=== PATIENT | male | born 1990 | race African-American/Black ===

== ENCOUNTER 2016-02-26 11:28 | Inpatient (IN) | payer OTHER ==
[~2016-02-26] VITALS: Ht 172.7 cm; Wt 82.7 kg
[~2016-02-26 11:28] MED LIST: CELE10TA; CELE20TA; CELE40TA OR; DEPA250T2 OR; DEPA500T2 PO; GEOD60CA OR; GEOD60CA PO; GLUC500T PO; INVE6TAB3; NAPR500T2 PO; NEUR300C; No home meds; OXCA30TA OR; PROZ20CA11 PO; RISP25INJ IM; RISP3TAB18 PO; RISPERDAL CONSTA; TRAZ100T OR; ZYPR10TA; ZYPR10TA OR; ZYPR20TA; ZYPR20TA OR; ZYPR20TA3; ZYPR5TAB; [UNRECOGNIZED DRUG - CODE] PO
[2016-02-26 13:37] LABS: MEAN CORPUSCULAR HEMOGLOBIN 32.4 pg (27.0-33.0); MEAN CORPUSCULAR HGB CONC 35.3 g/dl (32.0-36.5); MEAN CORPUSCULAR VOLUME 91.8 fl (80.0-96.0); RED CELL DISTRIBUTION WIDTH 12.1 % (11.5-14.5); WHITE BLOOD COUNT 6.3 K/mm3 (4.0-10.0)
[2016-02-26 13:55] LABS: AMPHETAMINES LEVEL URINE NEGATIVE (NEGATIVE); BENZODIAZEPINES URINE NEGATIVE (NEGATIVE); COCAINE METABOLITE URINE NEGATIVE (NEGATIVE); CONTROL LINE INT CTR LINE PRESENT; METHADONE URINE NEGATIVE (NEGATIVE); OPIATES URINE NEGATIVE (NEGATIVE); TRICYCLIC ANTIDEPRESS URINE NEGATIVE (NEGATIVE)
[2016-02-26 14:04] LABS: ALBUMIN 3.4 GM/DL (3.2-5.2); ALBUMIN/GLOBULIN RATIO 0.89 (1.00-1.93); ALKALINE PHOSPHATASE 73 U/L (45-117); ALT/SGPT 35 U/L (12-78); ANION GAP 8 MEQ/L (8-16); AST/SGOT 16 U/L (15-37); BILIRUBIN,DIRECT < 0.1 MG/DL (0.0-0.2); BILIRUBIN,TOTAL 0.2 MG/DL (0.2-1.0); BLOOD UREA NITROGEN 7 MG/DL (7-18); CALCIUM LEVEL 8.8 MG/DL (8.5-10.1); CARBON DIOXIDE LEVEL 27 MEQ/L (21-32); CHLORIDE LEVEL 106 MEQ/L (98-107); CREATININE FOR GFR 0.76 MG/DL (0.70-1.30); GLOMERULAR FILTRATION RATE > 60.0 (>60); GLUCOSE, FASTING 92 MG/DL (70-105); POTASSIUM SERUM 4.1 MEQ/L (3.5-5.1); SODIUM LEVEL 141 MEQ/L (136-145); TOTAL PROTEIN 7.2 GM/DL (6.4-8.2)
[2016-02-26] MEDS ORDERED: RISP2TAB30 PO (14:14)
[2016-02-26] MEDS ORDERED: DEPA1TAB3 PO (14:14)
--- NOTE | 2016-02-26 20:41 | EDDOCDS ---
Physician Documentation [facility] Name: Ivan Hirsch Age: 25 yrs Sex: Male : 1990 Arrival Date: 02/26/2016 Time: 11:28 Bed U4 Private MD: Disposition: 02/25 14:24 Critical Care: Critical care not applicable. Disposition: 02/26/16 14:25 Hospitalization ordered by Terry De La Rosa for Inpatient Admission. Preliminary diagnosis is Schizophrenia. - Bed requested for Admit. - Status is Inpatient Admission. cf2 - Condition is Stable. - Problem is an acute exacerbation. - Symptoms are unchanged. HPI: 12:54 This 25 yrs old Male presents to ER via Police Car with complaints of pc Psych Problem. 12:54 The history is obtained from the patient, the patient's parent. The patient presents to the emergency department with hallucinating. At their worst, the symptoms were moderate. In the emergency department, the symptoms are unchanged. He has been missing his Psych appointment and monthly Invega injections and has become psychotic. His mother called for a pickle pumper order today. He is cooperative and polite but is responding to internal stimuli. The patient has experienced similar episodes in the past, chronically. Historical: - Allergies: no known allergies; - Home Meds: 1. has not taken any meds x 1 month 2. Invega Sustenna intramuscular intramuscular once moly (Last dose: 12/31/2015) 3. Prozac 20 mg Oral cap 1 cap once daily (Last dose: Unknown) 4. Risperdal 2 mg Oral tab 1 tab 2 times per day (Last dose: Unknown) 5. Depakote 500 mg Oral TbEC 2 tabs nightly (Last dose: Unknown) - PMHx: Schizophrenia; - PSHx: Cholecystectomy; - The history from nurses notes was reviewed: and I agree with what is documented. - Social history: Smoking status: Patient uses tobacco products, heavy tobacco smoker. No barriers to communication noted, The patient speaks fluent Kiswahili, Speaks appropriately for age. - Family history: Not pertinent. - : The pt / caregiver states he / she is not on anticoagulants. Home medication list is obtained from the patient. - Hospitalizations: : No recent hospitalization is reported. - Exposure Risk Screening:: None identified. - Immunization history:: All immunizations up-to-date. - Social history:: the patient smokes cigarettes the patient drinks alcohol, the patient does not use illicit drugs. ROS: 12:54 All systems are negative except as listed. The psychiatric and neurological components pc are also addressed in the HPI. Exam: 12:54 General Appearance: alert, no acute distress. pc 12:54 ENT: ear, nose and throat normal, pharynx normal. 12:54 Eyes: pupils equal, round and reactive to light, extraocular motions intact. 12:54 Neck: The exam reveals no acute abnormalities. ROM is normal and painless. No nuchal rigidity is noted.. 12:54 Respiratory: breathing is even and unlabored, breath sounds are normal. 12:54 Cardiovascular: regular pulse rate, regular heart rhythm, normal heart sounds, equal and full pulses bilaterally. 12:54 Abdomen: soft, non-tender, no organomegaly, normal bowel sounds. 12:54 Skin: skin color is normal, warm, dry. 12:54 Extremities: The extremities have a grossly normal appearance, are non-tender, without acute ROM abnormalities. 12:54 Neuro: alert, oriented to person, place and time, cranial nerves normal as tested, no motor deficits, no sensory deficits. 12:54 Psych: mood is normal, affect is paranoid, withdrawn. Vital Signs: 12:02 BP 141 / 82; Pulse 82; Resp 16; Temp 96.8(O); Pulse Ox 98% on R/A; Weight 84.37 kg / bcj 186 lbs; Height 5 ft. 8 in. (172.72 cm); Pain 0/10; 20:25 BP 134 / 82; Pulse 68; Resp 18; Temp 97.3; Pulse Ox 98% ; Pain 0/10; mas 12:02 Body Mass Index 28.28 (84.37 kg, 172.72 cm) bcj MDM: 12:27 Consult PFS/PSA/Medical Record Coder: Patient's case requires discussion with on-call pc Psychiatrist ordered. 12:27 PSA/PFS to call Nursing Furnace Packer, to enter patient data on [place] Safe Act if patient pc involuntarily admitted or transferred for SI or HI ordered. 12:27 Confirm accurate psychiatric medication list and times of last dosage ordered. pc 12:27 Detain Pt Until Medically/PFS Cleared ordered. pc 12:28 Acetaminophen Level Ordered. EDMS 12:28 Basic Metabolic Profile Ordered. EDMS 12:28 Complete Blood Count Ordered. EDMS 12:28 Drug Eval Toxicology ED Only Ordered. EDMS 12:28 Ethyl Alcohol (ethanol) Ordered. EDMS 12:28 Liver Profile Ordered. EDMS 12:28 Salicylate Level Ordered. EDMS 12:28 Thyroid Stimulating Hormone Ordered. EDMS 12:54 Differential diagnosis: acute psychosis. Plan: labs, PFS eval. pc 13:20 REGULAR DIET PLASTIC RUIZ+DIET ordered. EDMS 13:45 BED REQUEST+ADM ordered. EDMS 14:08 Acetaminophen Level Reviewed. pc 14:08 Complete Blood Count Reviewed. pc 14:08 Liver Profile Reviewed. pc 14:08 Salicylate Level Reviewed. pc 14:08 Basic Metabolic Profile Reviewed. pc 14:08 Drug Eval Toxicology ED Only Reviewed. pc 14:08 Ethyl Alcohol (ethanol) Reviewed. pc 14:08 Thyroid Stimulating Hormone Reviewed. pc 14:24 The patient has been medically cleared for psychiatric evaluation, admission and/or pc transfer. [place] Safe Act reporting: Reporting to the [place] Safe [place] was not completed because the patient did not display any suicidal or homicidal ideation and was not considered a risk to self or others. Data reviewed: old medical records, vital signs, nurses notes, lab test results. Test interpretation: LAB - all labs as ordered have been reviewed, interpreted and considered in the overall management of the clinical presentation;. The patient has been re-examined and re-evaluated. There is no appreciated change of the patient's symptoms at this time. Disposition: The historical points, examination findings, and any diagnostic results supporting the provided diagnosis, were discussed with the patient or legal guardian. The need for outpatient follow up with the provider listed on their discharge instructions was discussed. They were encouraged to return to [facility], or the nearest ED, if symptoms worsen/persist, or for any other questions/concerns. 15:16 Financial registration complete. [id number] 15:24 [facility] Payment Agreement was scanned into [employer] and attached to record. mm15 16:13 REGULAR DIET PLASTIC RUIZ+DIET ordered. EDMS 16:33 Admit to [facility]: ordered. EDMS 18:38 Consult PFS/PSA/Medical Record Coder: Patient's case requires discussion with on-call ms Psychiatrist complete. 18:38 PSA/PFS to call Nursing Furnace Packer, to enter patient data on [facility] Safe Act if patient ms involuntarily admitted or transferred for SI or HI complete. Signatures: Dispatcher [employer] Edenilson Camejo MD MD pc Johnson, Bruce, RN RN bcabe Townsend, Sarah, PSA PSA Asiya Hilton,RN RN Pancho Neumann mm15 Catrachita Matthews RN RN cf2 The chart was reviewed and I authenticate all verbal orders and agree with the evaluation and treatment provided.Attachments: 15:24 [facility] Payment Agreement [id number] MTDD
--- NOTE | 2016-02-26 20:41 | EDDOCDS ---
Nurse's Notes [facility] Name: Ivan Hirsch Age: 25 yrs Sex: Male : 1990 Arrival Date: 02/26/2016 Time: 11:[address] MD: Diagnosis: Schizophrenia Presentation: 02/25 11:52 Presenting complaint: Patient states: states here for medication adjustment. per PFS - bcj has been non compliant with meds - told provider today that something inside him was eating his meds. admits to auditory hallucinations - random voices. has not been taking meds at home. pt denies SI HI admits to not sleeping. not eating well. Mental Health Triage Level: Level 2: The patient was brought to the ED for evaluation because of a legal pickup order. Adult Sepsis Screening: The patient does not have new or worsening altered mentation. Patient's respiratory rate is less than 22. Systolic blood pressure is greater than 100. Patient has a qSOFA score of 0- Negative Sepsis Screen. Suicide/Homicide risk assessment- The patient admits to and/or has been reported to be having suicidal ideations. Patient denies SI and HI but presents with another emotional, behavioral or other mental health complaint. The patient reports that he/she has not been admitted to an inpatient mental health facility in the last 30 days. The patient reports that he/she has a recent or current history of substance abuse. The patient reports that he/she has no prior history of suicide attempt and/or organized plan. The patient reports that he/she has not experienced a significant life altering event in the last 30 days. The patient reports that he/she has adequate social support. The patient reports he/she has no significant chronic medical condition(s). Status: Patient is not a travel services professional or dependent. Transition of care: patient was not received from another setting of care. 11:52 Acuity: PHILIP Level 3 [facility] 11:52 Method Of Arrival: Police Car [facility] Triage Assessment: 12:02 General: Appears in no apparent distress, comfortable, Behavior is cooperative. Pain: bcj Denies pain. HIV screening NA for this visit Offered previously. Neurological: Level of Consciousness is awake, alert, Oriented to person, place, time. Derm: Skin is pink, warm & dry. Historical: - Allergies: no known allergies; - Home Meds: 1. has not taken any meds x 1 month 2. Invega Sustenna intramuscular intramuscular once moly (Last dose: 12/31/2015) 3. Prozac 20 mg Oral cap 1 cap once daily (Last dose: Unknown) 4. Risperdal 2 mg Oral tab 1 tab 2 times per day (Last dose: Unknown) 5. Depakote 500 mg Oral TbEC 2 tabs nightly (Last dose: Unknown) - PMHx: Schizophrenia; - PSHx: Cholecystectomy; - The history from nurses notes was reviewed: and I agree with what is documented. - Social history: Smoking status: Patient uses tobacco products, heavy tobacco smoker. No barriers to communication noted, The patient speaks fluent Bhutanese, Speaks appropriately for age. - Family history: Not pertinent. - : The pt / caregiver states he / she is not on anticoagulants. Home medication list is obtained from the patient. - Hospitalizations: : No recent hospitalization is reported. - Exposure Risk Screening:: None identified. - Immunization history:: All immunizations up-to-date. - Social history:: the patient smokes cigarettes the patient drinks alcohol, the patient does not use illicit drugs. Screenin:03 Screening information is obtained from the patient. Fall risk: No risks identified. bcj Assistance ADL's: requires no assistance with activities of daily living. Abuse/DV Screen: The patient / caregiver reports he/she is: not in a situation that causes fear, pain or injury. Nutritional screening: No deficits noted. Advance Directives: Currently, there is no health care proxy. home support is adequate. Assessment: 12:03 Adult Sepsis Screening:. General: Appears in no apparent distress, comfortable. Pain: bcj Denies pain. 13:00 General: Appears in no apparent distress, comfortable, Behavior is appropriate for age, jo3 cooperative. Pain: Denies pain. Neurological: Level of Consciousness is awake, alert. Respiratory: Airway is patent Respiratory effort is even, unlabored. Derm: Skin is intact, Skin is dry, Skin is normal. 14:00 Reassessment: Patient appears in no apparent distress at this time. No significant jo3 changes noted. Security observing . 15:40 Reassessment: Patient appears in no apparent distress at this time. Mother at bedside. jo3 Awaiting admission at this time. Aware of plan of care. Security observing . 17:22 General: Appears in no apparent distress, comfortable, Behavior is cooperative, quiet. jo3 General: Resting quietly on stretcher at this time. Mother left pt room at this time. Mother reports to this quality analyst/technical writer that pt has not been taking home medications consistently for 1-2 months. Pt has not had Invega injection since 12/30. other also states that pt has been abusing "Zita" and cocaine and ETOH. . Neurological: No deficits noted. Level of Consciousness is awake, alert. Respiratory: Airway is patent Respiratory effort is even, unlabored. Derm: Skin is intact, Skin is dry, Skin is normal. 19:33 General: Patient received from previous shift. Calm and cooperative. No s/s distress. cf2 Sitter at bedside. Will continue to monitor . 20:30 Adult Sepsis Screening: The patient does not have new or worsening altered mentation. cf2 Patient's respiratory rate is less than 22. Systolic blood pressure is greater than 100. Patient has a qSOFA score of 0- Negative Sepsis Screen. 20:31 General: Patient resting comfortably. No s/s distress. Remains calm and cooperative. cf2 Patient being prepared for transport to floor.. Mental Health Eval: 12:35 Status: The patient is not a travel services professional or dependent. [facility] Health: The patient is not an established patient of [facility]. Referral Information: Evaluation referral is generated by a police agency: [employer] on . The patient was referred for evaluation because Pt reportedly decompensating. A .45 was requested by pt's mother after concerns were expressed by pt's therapist because pt had failed to present several times for monthly injection of Invega. Mother says pt has been experiencing AH and delusions which are increasing. 14:42 Mental health consult is initiated at 14:45. Subjective: The patients chief complaint ml4 is pt states, "I'm here because I need a medication increase." Pt reports missing his last Invega injection, but feels the medication was not effective. He admits not wanting to be prescribed Invega any longer, but admits wanting his other medication dosage increased. Pt reports wanting to return home, denies SI and HI. He appears to present well during evaluation, however as interview progresses, the more paranoid he becomes. He is delayed answering questions, positive thought blocking, and appears to be internally pre-occupied. Spoke to mother separately who reports pt is decompensating due to non-compliance. Last dose of Invega injection was Dec, 2015. Mother reports pt stated this am, "something inside of me is eating the medication." Additionally, she reports pt's new acquaintance has been taking advantage of him and supplying him with dugs(Zita and Cocaine), which may be causing symptoms. Mother reports pt is responding to internal stimuli and states, "he has non-verbal conversations with someone who is not there." . Delusions are paranoid, Patient's mood is anxious, Auditory Hallucinations are suspected by Mother . Visual Hallucinations are suspected by Mother . Mental Health history: abusing cocaine. crack cocaine. methamphetamine. schizophrenia, Mental Health Admissions: [facility] 08/17/13 Current Outpatient Mental Health Services: [facility] . Current living environment is Family / Home Support: adequate family support, however pt resides alone. Patient presents to Emergency Department with the following symptoms within the past 2 weeks: anxiety, decreased appetite, auditory hallucinations Mother visual hallucinations, Mother non-compliance, paranoia, poor concentration, poor impulse control, psychosis, relational problem, sleep disturbance - insomnia. Substance abuse: Pt denies. Mental status exam: Patients appearance is appropriate, Patient's behavior is bizarre, Speech is mumbled. Affect is restricted. Mood is anxious. Hallucinations are Denied, however heavily suspected . Appetite is poor. Memory is fair. Energy level is normal. Content of thought is paranoid Thought process is intact. Cognitive level is oriented to person, place, time and situation Patient's insight is poor. Judgement is poor. Rapport with interviewer is guarded. Suicidal Ideation is denied. Homicidal ideation is denied. Disposition: Medically cleared for disposition by Edenilson Sepulveda MD. Narrative: Awaiting psychiatric consult... 16:49 Disposition: Psychiatric Consult is performed by phone with Dr Terry De La Rosa. [facility] ml4 Admission Criteria: The patient displays symptoms of severe psychiatric disorder resulting in disordered behavior and significant interference with his / her ability to maintain self care. The patient requires continuous observation and/or control to protect self, others or property. The patient's care requires a multi-modal treatment plan under close supervision and coordination due to the complexity and severity of the patient's symptoms. The patient requires administration and monitoring of psychoactive medications by skilled medical providers due to the side effects of the psychoactive medications or significant dosage adjustments. Legal Status: Patient's legal status will be Emergency admission: 39. [place] because the patient does not display any suicidal or homicidal ideations and does not pose a risk to self or others. DSM-V Differential Diagnosis: Schizophrenia (F20.9). Narrative: Notice of Status and Rights, FAQ, and Bill of Rights was given at bedside. Awaiting: transfer to [facility]. 16:53 Narrative: Mother is requesting drug and alcohol rehab for pt upon discharge due to pt ml4 abusing Zita and Marijuana. 18:40 Insurance Pre-Certification: approved by: Quintin Clarke \\Christopher\\ [facility] Community Plan. Pt is approved ml4 for 5 days(02/25-03/01) with review due on 03/02/16. Auth #[id number]. Psych: 12:05 Mental Health Triage Level: Level 2: The patient displays active suicidal ideations. [facility] 12:05 Subjective: The patients chief complaint is needs medication change. Delusions are denied. Patient's mood is appropriate. Auditory Hallucinations are reported by the patient. 12:05 Objective: Patient is cooperative, Speech is normal. Affect is appropriate. 12:05 Substance abuse: Pt denies Vital Signs: 12:02 BP 141 / 82; Pulse 82; Resp 16; Temp 96.8(O); Pulse Ox 98% on R/A; Weight 84.37 kg; [facility] Height 5 ft. 8 in. (172.72 cm); Pain 0/10; 20:25 BP 134 / 82; Pulse 68; Resp 18; Temp 97.3; Pulse Ox 98% ; Pain 0/10; mas 12:02 Body Mass Index 28.28 (84.37 kg, 172.72 cm) [facility] Vitals: 12:02 Log In time N/A- police car arrival. [facility] ED Course: 11:29 Patient visited by Jan León Reg. lg 11:29 Patient moved to [facility] lg 11:42 [address] 11[address]59 Triage Initiated [facility] 12:00 Pt greeted and oriented to ED. Patient advised of names of staff involved in care, pjf location of call smith, wait times and NPO status. Accompanied by Law Enforcement, wplexy (9.45), Side rails up X 1. Security observing. Property removed, secured in belongings bag- Placed in locker #4. Door closed. Noise minimized. Visitors limited. Report received from [facility] - psych. triage level #2, ams, requesting medication adjustment, cooperative \\T\\ this time. Psych Safety Check: Location: Psych Room. 12:03 The patient / caregiver is instructed regarding the plan of care and ED course. Patient bcj has correct armband on for positive identification. Placed in gown. Placed in psych safe attire. Bed in low position. Call light in reach. 12:03 No IV's were initiated during this patient's visit. No procedures done that require bcj assistance. 12:04 Patient visited by Juan José Estrada Security Aide. pjf 12:04 Edenilson Sepulveda MD is Attending Physician. pc 12:06 Patient visited by Fox Lopez RN. bcj 12:15 Psych Safety Check: Location: Psych Room. Visual Assessment: Cooperative. pjf 12:44 Patient visited by Juan José Estrada Security Aide. pjf 12:45 Psych Safety Check: Location: Psych Room. Visual Assessment: Cooperative. pjf 12:54 Patient visited by Edenilson Sepulveda MD. pc 13:11 Patient visited by Juan José Estrada Security Aide. pjf 13:12 Acetaminophen Level Sent. nb2 13:12 Basic Metabolic Profile Sent. nb2 13:12 Complete Blood Count Sent. nb2 13:12 Drug Eval Toxicology ED Only Sent. nb2 13:12 Ethyl Alcohol (ethanol) Sent. nb2 13:12 Liver Profile Sent. nb2 13:12 Salicylate Level Sent. nb2 13:12 Thyroid Stimulating Hormone Sent. nb2 13:34 Patient visited by Juan José Estrada Security Aide. pjf 13:35 Property secured in secure belongings bag, Secure bag Number [id number], placed in ED safe.pjf 13:45 Psych Safety Check: Location: Psych Room. Visual Assessment: Cooperative. pjf 14:01 Patient visited by Juan José Estrada Security Aide. pjf 14:14 Patient visited by Juan José Estrada Security Aide. pjf 14:25 Terry De La Rosa is Hospitalizing Provider. pc 15:15 Patient visited by Cm Lama PCA. mdr 15:24 [facility] Payment Agreement was scanned into [employer] and attached to record. mm15 15:44 Patient visited by Juan José Estrada Security Aidalma rosa. pjf 16:06 Patient visited by Asiya Del Rosario RN. jo3 16:17 Patient visited by Juan José Estrada Security Aide. pjf 16:31 Patient visited by Juan José Estrada Security Aide. pjf 16:44 Patient visited by Juan José Estrada Security Aidalma rosa. pjf 16:45 Psych Safety Check: Location: Psych Room. Visual Assessment: Cooperative. pjf 17:00 Psych Safety Check: Location: Psych Room. Visual Assessment: Cooperative. pjf 17:15 Psych Safety Check: Location: Psych Room. Visual Assessment: Cooperative. pjf 17:27 Patient visited by Asiya Del Rosario RN. jo3 17:30 Psych Safety Check: Location: Psych Room. Visual Assessment: Cooperative. pjf 17:48 Patient visited by Juan José Estrada Security Aide. pjf 18:17 Patient visited by Juan José Estrada Security Aidalma rosa. pjf 18:43 Patient visited by Juan José Estrada Security Aidalma rosa. pjf 19:11 Patient visited by Asiya Del Rosario RN. jo3 19:20 Catrachita Matthews,ADAL is Primary Nurse. cf2 19:20 Patient visited by Catrachita Matthews RN. cf2 19:20 Patient visited by Catrachita Matthews,ADAL. cf2 19:30 Patient visited by Laz Scott. mas 19:45 Patient visited by Laz Scott. mas 20:00 Patient visited by Laz Scott. mas 20:12 Patient visited by Catrachita Matthews RN. cf2 20:16 Patient visited by Laz Scott. mas 20:30 Patient visited by Laz Scott. mas 20:30 Patient visited by Catrachita Matthews RN. cf2 Order Results: Lab Order: Acetaminophen Level; SPEC'M 02/26/16 13:10 Test: ACETAMINOPHEN LEVEL; Value: < 2.0; Range: 10.0-30.0; Abnormal: Below low normal; Units: UG/ML; Status: F Lab Order: Basic Metabolic Profile; SPEC'M 02/26/16 13:10 Test: GLUCOSE, FASTING; Value: 92; Range: 70-105; Units: MG/DL; Status: F Test: BLOOD UREA NITROGEN; Value: 7; Range: 7-18; Units: MG/DL; Status: F Test: CREATININE FOR GFR; Value: 0.76; Range: 0.70-1.30; Units: MG/DL; Status: F Test: GLOMERULAR FILTRATION RATE; Value: > 60.0; Range: >60; Status: F Test: SODIUM LEVEL; Value: 141; Range: 136-145; Units: MEQ/L; Status: F Test: POTASSIUM SERUM; Value: 4.1; Range: 3.5-5.1; Units: MEQ/L; Status: F Test: CHLORIDE LEVEL; Value: 106; Range: 98-107; Units: MEQ/L; Status: F Test: CARBON DIOXIDE LEVEL; Value: 27; Range: 21-32; Units: MEQ/L; Status: F Test: ANION GAP; Value: 8; Range: 8-16; Units: MEQ/L; Status: F Test: CALCIUM LEVEL; Value: 8.8; Range: 8.5-10.1; Units: MG/DL; Status: F Test Note: ; Units are mL/min/1.73 m2 Chronic Kidney Disease Staging per NKF: Stage I & II GFR >=60 Normal to Mildly Decreased Stage III GFR 30-59 Moderately Decreased Stage IV GFR 15-29 Severely Decreased Stage V GFR <15 Very Little GFR Left ESRD GFR <15 on RECORDINGS LIBRARIAN Lab Order: Complete Blood Count; [facility] 02/26/16 13:10 Test: WHITE BLOOD COUNT; Value: 6.3; Range: 4.0-10.0; Units: K/mm3; Status: F Test: RED BLOOD COUNT; Value: 4.53; Range: 4.30-6.10; Units: M/mm3; Status: F Test: HEMOGLOBIN; Value: 14.7; Range: 14.0-18.0; Units: g/dl; Status: F Test: HEMATOCRIT; Value: 41.6; Range: 42.0-52.0; Abnormal: Below low normal; Units: %; Status: F Test: MEAN CORPUSCULAR VOLUME; Value: 91.8; Range: 80.0-96.0; Units: fl; Status: F Test: MEAN CORPUSCULAR HEMOGLOBIN; Value: 32.4; Range: 27.0-33.0; Units: pg; Status: F Test: MEAN CORPUSCULAR HGB CONC; Value: 35.3; Range: 32.0-36.5; Units: g/dl; Status: F Test: RED CELL DISTRIBUTION WIDTH; Value: 12.1; Range: 11.5-14.5; Units: %; Status: F Test: PLATELET COUNT, AUTOMATED; Value: 298; Range: 150-450; Units: k/mm3; Status: F Lab Order: Drug Eval Toxicology ED Only; SPEC'M 02/26/16 13:10 Test: AMPHETAMINES LEVEL URINE; Value: NEGATIVE; Range: NEGATIVE; Status: F Test: BARBITURATES URINE; Value: NEGATIVE; Range: NEGATIVE; Status: F Test: BENZODIAZEPINES URINE; Value: NEGATIVE; Range: NEGATIVE; Status: F Test: CANNABINOIDS URINE; Value: NEGATIVE; Range: NEGATIVE; Status: F Test: COCAINE METABOLITE URINE; Value: NEGATIVE; Range: NEGATIVE; Status: F Test: METHADONE URINE; Value: NEGATIVE; Range: NEGATIVE; Status: F Test: OPIATES URINE; Value: NEGATIVE; Range: NEGATIVE; Status: F Test: TRICYCLIC ANTIDEPRESS URINE; Value: NEGATIVE; Range: NEGATIVE; Status: F Test Note: ; ALL PRESUMPTIVE POSITIVE FINDINGS ARE UNCONFIRMED NORMAL VALUES THRESHOLD IN NG/ML AMPHETAMINES 1000 METHAMPHETAMINES 1000 BARBITURATES 300 BENZODIAZEPINES 300 CANNABINOIDS (THC) 50 COCAINE METABOLITE 300 METHADONE 300 OPIATES 300 PHENCYCLIDINE 25 TRICYCLIC ANTIDEPRESSANTS 1000 RESULTS ARE FOR MEDICAL PURPOSES ONLY. ALL URINE SPECIMENS WILL BE SAVED FOR 3 DAYS. IF CONFIRMATION OF A PRESUMPTIVE POSTIVE SCREEN RESULT IS DESIRED, CALL CHEMISTRY ([phone]) AND REQUEST URINE TO BE SENT TO REFERENCE LAB. FOR A LIST OF CLOSELY RELATED COMPOUNDS PLEASE CALL THE LAB. Lab Order: Ethyl Alcohol (ethanol); SPEC'M 02/26/16 13:10 Test: ETHYL ALCOHOL (ETHANOL); Value: < 0.003; Range: 0.000-0.010; Units: %; Status: F Lab Order: Liver Profile; SPEC'M 02/26/16 13:10 Test: AST/SGOT; Value: 16; Range: 15-37; Units: U/L; Status: F Test: ALT/SGPT; Value: 35; Range: 12-78; Units: U/L; Status: F Test: ALKALINE PHOSPHATASE; Value: 73; Range: 45-117; Units: U/L; Status: F Test: BILIRUBIN,TOTAL; Value: 0.2; Range: 0.2-1.0; Units: MG/DL; Status: F Test: BILIRUBIN,DIRECT; Value: < 0.1; Range: 0.0-0.2; Units: MG/DL; Status: F Test: TOTAL PROTEIN; Value: 7.2; Range: 6.4-8.2; Units: GM/DL; Status: F Test: ALBUMIN; Value: 3.4; Range: 3.2-5.2; Units: GM/DL; Status: F Test: ALBUMIN/GLOBULIN RATIO; Value: 0.89; Range: 1.00-1.93; Abnormal: Below low normal; Status: F Lab Order: Salicylate Level; SPEC'M 02/26/16 13:10 Test: SALICYLATE LEVEL; Value: 4.6; Range: 5.0-30.0; Abnormal: Below low normal; Units: MG/DL; Status: F Lab Order: Thyroid Stimulating Hormone; SPEC'M 02/26/16 13:10 Test: THYROID STIMULATING HORMONE; Value: 0.785; Range: 0.358-3.740; Units: uIU/ML; Status: F Outcome: 14:25 Decision to Hospitalize by Provider. 20:33 Discharge Assessment: Patient awake, alert and oriented x 3. No cognitive and/or cf2 functional deficits noted. Patient verbalized understanding of disposition instructions. Patient awake and alert. Oriented to person, place and time. Patient verbalized understanding of disposition instructions. patient administered narcotics - no. The following High Risk Discharge criteria are identified: Yes, Threat to self. Admitted to Psych. Condition: good Condition: stable. No special radiology studies were completed. 20:40 Patient left the ED. cf2 Signatures: Edenilson Sepulveda MD MD pc Johnson, Bruce, RN RN shon Singleton, Kina, PSA PSA ca Jan León, Reg Reg lg Juan José Estrada, Security Aide Asiya ChampagneRN RN jo3 Patricia Man, PSA PSA ml4 Laz Scott Marlynn mm15 Armand Gallardo, INTELLIGENCE CHIEF INTELLIGENCE CHIEF jrd Cm Lama, INTELLIGENCE CHIEF INTELLIGENCE CHIEF mdr Catrachita Matthews,RN RN cf2 Evie Byrd nb2 Corrections: (The following items were deleted from the chart) 18:38 16:53 Narrative: Mother is requesting drug and alcohol rehab for pt upon discharge ml4 ml4 20:36 20:33 General: Patient received from previous shift. Patient resting comfortably. Calm cf2 and cooperative. No s/s distress. Sitter remains in place. Will continue to monitor. . cf2 MTDD
[2016-02-26 20:46] VITALS: BP 141/101
[2016-02-26] MEDS ORDERED: MAALOX 30 ML SUSP *UDC PO PRN (21:15)
[2016-02-26] MEDS ORDERED: LORazepam 2 MG TAB PO PRN (21:15)
[2016-02-26] MEDS ORDERED: MOM 30ML SUSPENSION UDC PO PRN (21:15)
[2016-02-26] MEDS: traZODone 50 MG TAB PO PRN (21:49)
[2016-02-26] MEDS: THIAMINE 100 MG TAB PO SCH (21:49)
[2016-02-27 06:39] VITALS: BP 120/74
[2016-02-27] MEDS: THIAMINE 100 MG TAB PO SCH ×2 (08:46→20:56)
[2016-02-27] MEDS: FOLIC ACID 1 MG TAB PO SCH (08:46)
[2016-02-27] MEDS: MULTIVITAMINS/MINERALS THERAP 1 TAB PO SCH (08:46)
[2016-02-27] MEDS: NICOTINE 21MG/24HR 1 EA TRANSDERMAL TD SCH (08:47)
[2016-02-27] MEDS: risperiDONE 2 MG TAB PO SCH ×3 (09:00→20:56)
--- NOTE | 2016-02-27 09:41 | HPEPDOC ---
Medical History and Physical Date of Admission Feb 26, 2016 at 20:42 History and Physical PCP: None ATTENDING: Dr. Bandar Miranda HPI: 25yoM admitted to [facility] for unspecified psychosis, being medically examined today. No acute medical complaints today. Denies any fevers, chills, weakness, fatigue, HULL, CP, SOB, cough, palpitations, abdominal pain, N/V/D or changes in bowel or bladder habits. He states he was here because he wanted his psychiatric medications adjusted. He did not feel they were working the way they should. PMHx: Schizophrenia MRI Brain 12/17 No intracranial lesion Poor dentition Tobacco use PSHX: Cholecystectomy SOCHX: Resides in: [place] Marital Status: Single Kids: None Employment: Unemployed Tobacco use: One pack per day ETOH: 6 drinks per week Illicit Drugs: States used cocaine 1 month ago. Has used mushrooms, marijuana, and ecstasy in the past. IV Drug Use: Denies Tattoos done unprofessionally: Denies FAMHX: Mother: Alive, well Father: Alive, diabetes Siblings: One brother, one sister Alive, well Children: None Unexpected deaths due to medical reasons: None. ROS: As noted in HPI, otherwise 11pt ROS of systems reviewed and remarkable only for poor dentition. He denies any current dental pain. He has not seen a dentist recently. PE: GEN: 25 yo M, appears stated age. Well-nourished, well developed. No acute distress. Alert and oriented x 3. Seems guarded and slow to answer questions. HEENT: Normocephalic, atraumatic. Pupils are equal, round, and reactive to light. Extraocular movements are intact. No nystagmus appreciated. Sclera are nonicteric. Conjunctiva without injection. Nose midline. Nasal turbinates without bogginess. EACs both patent BL. TMs both visualized and st with good cone of light, no bulging or erythema. No facial asymmetry. Moist mucous membranes. Dentition poor. Pharynx pink and moist, no cobblestoning. Neck supple , trachea midline. No lymphadenopathy or thyromegaly appreciated. CHEST: Regular rate and rhythm, +S1, +S2 LUNGS: Clear to auscultation bilaterally. No wheezes, rales, or rhonchi. Breathing appears symmetric and easy. Patient is speaking in full sentences. No accessory muscle use. ABD: Round, soft, non-tender, non-distended. +Bowel sounds throughout. No rebound or guarding. No costovertebral angle tenderness. EXT: Pulses 2+ bilaterally dorsalis pedis and radial. No lower extremity edema appreciated. SKIN: Richards, dry, warm. Capillary refill <2sec. No rashes. NEURO: Alert and oriented x 3. Cranial nerves III-XII are intact. No focal deficits appreciated. EKG: pending UA pending A&P: 25yoM admitted to [facility] for unspecified psychosis 1. Psych. Plan per Psychiatry. Obtain baseline EKG to assure the safety of psychiatric medications as they can prolong the QT interval. 2. Nicotine dependence. Patch available. 3. Poor dentition. Patient denies any current dental concerns. No dental pain. Eating and drinking without any difficulty. Will try to establish with a dentist at discharge. 4. Follow up. No Primary Care Provider. Will attempt to establish PCP on discharge. 5. Accompanied throughout exam by staff member safety aid OKREY. Vital Signs Vital Signs Label Value Date Time Patient Temperature 98.5 degrees F 02/27/16 0639 Temperature Source Tympanic 02/27/16 0639 Pulse 69 02/27/16 0639 Respiratory Rate 16 bpm 02/27/16 0639 Blood Pressure Assessment 120/74 (89) 02/27/16 0639 Laboratory Data Labs 24H Laboratory Tests 2 02/26/16 13:10: Acetaminophen Level < 2.0L, Aspartate Amino Transf (AST/SGOT) 16, Alanine Aminotransferase (ALT/SGPT) 35, Alkaline Phosphatase 73, Total Bilirubin 0.2, Direct Bilirubin < 0.1, Albumin 3.4, Albumin/Globulin Ratio 0.89L, Anion Gap 8, Calcium Level 8.8, Ethyl Alcohol Level < 0.003, Glomerular Filtration Rate > 60.0, Salicylates Level 4.6L, Thyroid Stimulating Hormone (TSH) 0.785, Total Protein 7.2, Urine Amphetamine Level NEGATIVE, Urine Benzodiazepines Screen NEGATIVE, Urine Cannabinoids NEGATIVE, Urine Cocaine Metabolite NEGATIVE, Urine Opiates Screen NEGATIVE, Urine Barbiturates, Qualitative NEGATIVE, Urine Methadone Screen NEGATIVE, Urine Tricyclic Antidepressants NEGATIVE CBC/BMP Laboratory Tests 02/26/16 13:10 Red Blood Count 4.53, Mean Corpuscular Volume 91.8, Mean Corpuscular Hemoglobin 32.4, Mean Corpuscular Hemoglobin Concent 35.3, Red Cell Distribution Width 12.1 Home Medications Scheduled (Depakote) 500 Mg Tab 1,000 MG PO QHS Fluoxetine HCl (Prozac) 20 Mg Cap 20 MG PO DAILY Risperidone (Risperdal) 2 Mg Tab 2 MG PO BID Allergies Coded Allergies: POLLEN (Verified Allergy, Unknown, 02/15/12) Paris Yarbrough Feb 27, 2016 09:41
[2016-02-27] MEDS: ACETAMINOPHEN TAB 650MG DOSE (2X325MG) PO PRN (13:58)
[2016-02-27] MEDS: FLUoxetine 20 MG CAP PO SCH (15:19)
--- NOTE | 2016-02-27 15:50 | ECGEPIP ---
Stationary ECG Study [facility] Test Date: 2016-02-27 Pat Name: ADAMS GARCIA Department: Room: [place] [address] Gender: M Compliance Auditor: : 1990 Requested By: Paris Yarbrough Order Number: [id number] Reading MD: Lazara Turner Measurements Intervals [place] Rate: 67 P: 56 [place]: 165 QRS: -7 QRSD: 109 T: 18 QT: 409 QTc: 432 Interpretive Statements SINUS RHYTHM NORMAL Electronically Signed On 02-27-2016 15:49:58 EST by Lazara Turner
[2016-02-27] MEDS: traZODone 50 MG TAB PO PRN (20:56)
[2016-02-27] MEDS: DIVALPROEX 500MG *ER* TAB PO SCH (20:56)
[2016-02-27 21:00] VITALS: BP 126/72
[2016-02-28 06:55] VITALS: BP 140/76
[2016-02-28] MEDS: NICOTINE 21MG/24HR 1 EA TRANSDERMAL TD SCH (08:13)
[2016-02-28] MEDS: MULTIVITAMINS/MINERALS THERAP 1 TAB PO SCH (08:13)
[2016-02-28] MEDS: THIAMINE 100 MG TAB PO SCH ×2 (08:14→20:59)
[2016-02-28] MEDS: risperiDONE 2 MG TAB PO SCH ×3 (08:14→20:59)
[2016-02-28] MEDS: FOLIC ACID 1 MG TAB PO SCH (08:14)
[2016-02-28] MEDS: FLUoxetine 20 MG CAP PO SCH (08:14)
[2016-02-28] MEDS ORDERED: PNEUMOCOCCAL VACCINE 0.5ML SYRINGE(90732) PNEUMOVAX 23 IM ONE (09:00)
[2016-02-28 11:55] VITALS: BP 158/89
[2016-02-28 18:00] VITALS: BP 142/84
[2016-02-28] MEDS: traZODone 50 MG TAB PO PRN (20:59)
[2016-02-28] MEDS: DIVALPROEX 500MG *ER* TAB PO SCH (21:00)
--- NOTE | 2016-02-28 21:41 | EDDOCDS ---
Physician Documentation [facility] Name: Ivan Hirsch Age: 25 yrs Sex: Male : 1990 Arrival Date: 02/26/2016 Time: 11:28 Bed U4 Private MD: Disposition: 02/25 14:24 Critical Care: Critical care not applicable. Disposition: 02/26/16 14:25 Hospitalization ordered by Terry De La Rosa for Inpatient Admission. Preliminary diagnosis is Schizophrenia. - Bed requested for Admit. - Status is Inpatient Admission. cf2 - Condition is Stable. - Problem is an acute exacerbation. - Symptoms are unchanged. HPI: 12:54 This 25 yrs old Male presents to ER via Police Car with complaints of pc Psych Problem. 12:54 The history is obtained from the patient, the patient's parent. The patient presents to the emergency department with hallucinating. At their worst, the symptoms were moderate. In the emergency department, the symptoms are unchanged. He has been missing his Psych appointment and monthly Invega injections and has become psychotic. His mother called for a picker packer order today. He is cooperative and polite but is responding to internal stimuli. The patient has experienced similar episodes in the past, chronically. Historical: - Allergies: no known allergies; - Home Meds: 1. has not taken any meds x 1 month 2. Invega Sustenna intramuscular intramuscular once moly (Last dose: 12/31/2015) 3. Prozac 20 mg Oral cap 1 cap once daily (Last dose: Unknown) 4. Risperdal 2 mg Oral tab 1 tab 2 times per day (Last dose: Unknown) 5. Depakote 500 mg Oral TbEC 2 tabs nightly (Last dose: Unknown) - PMHx: Schizophrenia; - PSHx: Cholecystectomy; - The history from nurses notes was reviewed: and I agree with what is documented. - Social history: Smoking status: Patient uses tobacco products, heavy tobacco smoker. No barriers to communication noted, The patient speaks fluent Danish, Speaks appropriately for age. - Family history: Not pertinent. - : The pt / caregiver states he / she is not on anticoagulants. Home medication list is obtained from the patient. - Hospitalizations: : No recent hospitalization is reported. - Exposure Risk Screening:: None identified. - Immunization history:: All immunizations up-to-date. - Social history:: the patient smokes cigarettes the patient drinks alcohol, the patient does not use illicit drugs. ROS: 12:54 All systems are negative except as listed. The psychiatric and neurological components pc are also addressed in the HPI. Exam: 12:54 General Appearance: alert, no acute distress. pc 12:54 ENT: ear, nose and throat normal, pharynx normal. 12:54 Eyes: pupils equal, round and reactive to light, extraocular motions intact. 12:54 Neck: The exam reveals no acute abnormalities. ROM is normal and painless. No nuchal rigidity is noted.. 12:54 Respiratory: breathing is even and unlabored, breath sounds are normal. 12:54 Cardiovascular: regular pulse rate, regular heart rhythm, normal heart sounds, equal and full pulses bilaterally. 12:54 Abdomen: soft, non-tender, no organomegaly, normal bowel sounds. 12:54 Skin: skin color is normal, warm, dry. 12:54 Extremities: The extremities have a grossly normal appearance, are non-tender, without acute ROM abnormalities. 12:54 Neuro: alert, oriented to person, place and time, cranial nerves normal as tested, no motor deficits, no sensory deficits. 12:54 Psych: mood is normal, affect is paranoid, withdrawn. Vital Signs: 12:02 BP 141 / 82; Pulse 82; Resp 16; Temp 96.8(O); Pulse Ox 98% on R/A; Weight 84.37 kg / bcj 186 lbs; Height 5 ft. 8 in. (172.72 cm); Pain 0/10; 20:25 BP 134 / 82; Pulse 68; Resp 18; Temp 97.3; Pulse Ox 98% ; Pain 0/10; mas 12:02 Body Mass Index 28.28 (84.37 kg, 172.72 cm) bcj MDM: 12:27 Consult PFS/PSA/Inventory Clerk: Patient's case requires discussion with on-call pc Psychiatrist ordered. 12:27 PSA/PFS to call Nursing Shot Lighter, to enter patient data [place] Safe [place] if patient pc involuntarily admitted or transferred for SI or HI ordered. 12:27 Confirm accurate psychiatric medication list and times of last dosage ordered. pc 12:27 Detain Pt Until Medically/PFS Cleared ordered. pc 12:28 Acetaminophen Level Ordered. EDMS 12:28 Basic Metabolic Profile Ordered. EDMS 12:28 Complete Blood Count Ordered. EDMS 12:28 Drug Eval Toxicology ED Only Ordered. EDMS 12:28 Ethyl Alcohol (ethanol) Ordered. EDMS 12:28 Liver Profile Ordered. EDMS 12:28 Salicylate Level Ordered. EDMS 12:28 Thyroid Stimulating Hormone Ordered. EDMS 12:54 Differential diagnosis: acute psychosis. Plan: labs, PFS eval. pc 13:20 REGULAR DIET PLASTIC RUIZ+DIET ordered. EDMS 13:45 BED REQUEST+ADM ordered. EDMS 14:08 Acetaminophen Level Reviewed. pc 14:08 Complete Blood Count Reviewed. pc 14:08 Liver Profile Reviewed. pc 14:08 Salicylate Level Reviewed. pc 14:08 Basic Metabolic Profile Reviewed. pc 14:08 Drug Eval Toxicology ED Only Reviewed. pc 14:08 Ethyl Alcohol (ethanol) Reviewed. pc 14:08 Thyroid Stimulating Hormone Reviewed. pc 14:24 The patient has been medically cleared for psychiatric evaluation, admission and/or pc transfer. [place]: [place] to the [place] was not completed because the patient did not display any suicidal or homicidal ideation and was not considered a risk to self or others. Data reviewed: old medical records, vital signs, nurses notes, lab test results. Test interpretation: LAB - all labs as ordered have been reviewed, interpreted and considered in the overall management of the clinical presentation;. The patient has been re-examined and re-evaluated. There is no appreciated change of the patient's symptoms at this time. Disposition: The historical points, examination findings, and any diagnostic results supporting the provided diagnosis, were discussed with the patient or legal guardian. The need for outpatient follow up with the provider listed on their discharge instructions was discussed. They were encouraged to return to [facility], or the nearest ED, if symptoms worsen/persist, or for any other questions/concerns. 15:16 Financial registration complete. mm15 15:24 [facility] [place] Agreement was scanned into [employer] and attached to record. mm15 16:13 REGULAR DIET PLASTIC RUIZ+DIET ordered. EDMS 16:33 Admit to [facility]: ordered. EDMS 18:38 Consult PFS/PSA/Inventory Clerk: Patient's case requires discussion with on-call ms Psychiatrist complete. 18:38 PSA/PFS to call Nursing Shot Lighter, to enter patient data on [facility] Safe Act if patient ms involuntarily admitted or transferred for SI or HI complete. Signatures: Dispatcher [employer] Edenilson Camejo MD MD pc Johnson, Bruce, RN RN Sarah Armenta, PSA PSA Asiya Hilton,RN RN Pancho Neumann mm15 Catrachita Matthews RN RN cf2 The chart was reviewed and I authenticate all verbal orders and agree with the evaluation and treatment provided.Attachments: 15:24 [facility] Payment Agreement mm15 Chart Complete MTDD
--- NOTE | 2016-02-28 21:41 | EDDOCDS ---
Physician Documentation [facility] Name: Ivan Hirsch Age: 25 yrs Sex: Male : 1990 Arrival Date: 02/26/2016 Time: 11:28 Bed U4 Private MD: Disposition: 02/25 14:24 Critical Care: Critical care not applicable. Disposition: 02/26/16 14:25 Hospitalization ordered by Terry De La Rosa for Inpatient Admission. Preliminary diagnosis is Schizophrenia. - Bed requested for Admit. - Status is Inpatient Admission. cf2 - Condition is Stable. - Problem is an acute exacerbation. - Symptoms are unchanged. HPI: 12:54 This 25 yrs old Male presents to ER via Police Car with complaints of pc Psych Problem. 12:54 The history is obtained from the patient, the patient's parent. The patient presents to the emergency department with hallucinating. At their worst, the symptoms were moderate. In the emergency department, the symptoms are unchanged. He has been missing his Psych appointment and monthly Invega injections and has become psychotic. His mother called for a flower buncher or picker order today. He is cooperative and polite but is responding to internal stimuli. The patient has experienced similar episodes in the past, chronically. Historical: - Allergies: no known allergies; - Home Meds: 1. has not taken any meds x 1 month 2. Invega Sustenna intramuscular intramuscular once moly (Last dose: 12/31/2015) 3. Prozac 20 mg Oral cap 1 cap once daily (Last dose: Unknown) 4. Risperdal 2 mg Oral tab 1 tab 2 times per day (Last dose: Unknown) 5. Depakote 500 mg Oral TbEC 2 tabs nightly (Last dose: Unknown) - PMHx: Schizophrenia; - PSHx: Cholecystectomy; - The history from nurses notes was reviewed: and I agree with what is documented. - Social history: Smoking status: Patient uses tobacco products, heavy tobacco smoker. No barriers to communication noted, The patient speaks fluent Croatian, Speaks appropriately for age. - Family history: Not pertinent. - : The pt / caregiver states he / she is not on anticoagulants. Home medication list is obtained from the patient. - Hospitalizations: : No recent hospitalization is reported. - Exposure Risk Screening:: None identified. - Immunization history:: All immunizations up-to-date. - Social history:: the patient smokes cigarettes the patient drinks alcohol, the patient does not use illicit drugs. ROS: 12:54 All systems are negative except as listed. The psychiatric and neurological components pc are also addressed in the HPI. Exam: 12:54 General Appearance: alert, no acute distress. pc 12:54 ENT: ear, nose and throat normal, pharynx normal. 12:54 Eyes: pupils equal, round and reactive to light, extraocular motions intact. 12:54 Neck: The exam reveals no acute abnormalities. ROM is normal and painless. No nuchal rigidity is noted.. 12:54 Respiratory: breathing is even and unlabored, breath sounds are normal. 12:54 Cardiovascular: regular pulse rate, regular heart rhythm, normal heart sounds, equal and full pulses bilaterally. 12:54 Abdomen: soft, non-tender, no organomegaly, normal bowel sounds. 12:54 Skin: skin color is normal, warm, dry. 12:54 Extremities: The extremities have a grossly normal appearance, are non-tender, without acute ROM abnormalities. 12:54 Neuro: alert, oriented to person, place and time, cranial nerves normal as tested, no motor deficits, no sensory deficits. 12:54 Psych: mood is normal, affect is paranoid, withdrawn. Vital Signs: 12:02 BP 141 / 82; Pulse 82; Resp 16; Temp 96.8(O); Pulse Ox 98% on R/A; Weight 84.37 kg / bcj 186 lbs; Height 5 ft. 8 in. (172.72 cm); Pain 0/10; 20:25 BP 134 / 82; Pulse 68; Resp 18; Temp 97.3; Pulse Ox 98% ; Pain 0/10; mas 12:02 Body Mass Index 28.28 (84.37 kg, 172.72 cm) bcj MDM: 12:27 Consult PFS/PSA/Band Singer: Patient's case requires discussion with on-call pc Psychiatrist ordered. 12:27 PSA/PFS to call Nursing Tie Tape Machine Operator, to [place] data [place] if patient pc involuntarily admitted or transferred for SI or HI ordered. 12:27 Confirm accurate psychiatric medication list and times of last dosage ordered. pc 12:27 Detain Pt Until Medically/PFS Cleared ordered. pc 12:28 Acetaminophen Level Ordered. EDMS 12:28 Basic Metabolic Profile Ordered. EDMS 12:28 Complete Blood Count Ordered. EDMS 12:28 Drug Eval Toxicology ED Only Ordered. EDMS 12:28 Ethyl Alcohol (ethanol) Ordered. EDMS 12:28 Liver Profile Ordered. EDMS 12:28 Salicylate Level Ordered. EDMS 12:28 Thyroid Stimulating Hormone Ordered. EDMS 12:54 Differential diagnosis: acute psychosis. Plan: labs, PFS eval. pc 13:20 REGULAR DIET PLASTIC RUIZ+DIET ordered. EDMS 13:45 BED REQUEST+ADM ordered. EDMS 14:08 Acetaminophen Level Reviewed. pc 14:08 Complete Blood Count Reviewed. pc 14:08 Liver Profile Reviewed. pc 14:08 Salicylate Level Reviewed. pc 14:08 Basic Metabolic Profile Reviewed. pc 14:08 Drug Eval Toxicology ED Only Reviewed. pc 14:08 Ethyl Alcohol (ethanol) Reviewed. pc 14:08 Thyroid Stimulating Hormone Reviewed. pc 14:24 The patient has been medically cleared for psychiatric evaluation, admission and/or pc transfer. [place]: [place] to the [place] was not completed because the patient did not display any suicidal or homicidal ideation and was not considered a risk to self or others. Data reviewed: old medical records, vital signs, nurses notes, lab test results. Test interpretation: LAB - all labs as ordered have been reviewed, interpreted and considered in the overall management of the clinical presentation;. The patient has been re-examined and re-evaluated. There is no appreciated change of the patient's symptoms at this time. Disposition: The historical points, examination findings, and any diagnostic results supporting the provided diagnosis, were discussed with the patient or legal guardian. The need for outpatient follow up with the provider listed on their discharge instructions was discussed. They were encouraged to return to [facility], or the nearest ED, if symptoms worsen/persist, or for any other questions/concerns. 15:16 Financial registration complete. mm15 15:24 [facility] Payment Agreement was scanned into [employer] and attached to record. mm15 16:13 REGULAR DIET PLASTIC RUIZ+DIET ordered. EDMS 16:33 Admit to [facility]: ordered. EDMS 18:38 Consult PFS/PSA/Band Singer: Patient's case requires discussion with on-call ms Psychiatrist complete. 18:38 PSA/PFS to call Nursing Tie Tape Machine Operator, to enter patient data on [facility] Safe Act if patient ms involuntarily admitted or transferred for SI or HI complete. Signatures: Dispatcher [employer] Edenilson Camejo MD MD pc Johnson, Bruce, RN RN Sarah Armenta, PSA PSA Asiya Hilton,RN RN Pancho Neumann mm15 Catrachita Matthews RN RN cf2 The chart was reviewed and I authenticate all verbal orders and agree with the evaluation and treatment provided.Attachments: 15:24 [facility] Payment Agreement mm15 Chart Complete MTDD
--- NOTE | 2016-02-28 21:41 | EDDOCDS ---
Nurse's Notes [facility] Name: Ivan Hirsch Age: 25 yrs Sex: Male : 1990 Arrival Date: 02/26/2016 Time: 11:[address] MD: Diagnosis: Schizophrenia Presentation: 02/25 11:52 Presenting complaint: Patient states: states here for medication adjustment. per PFS - bcj has been non compliant with meds - told provider today that something inside him was eating his meds. admits to auditory hallucinations - random voices. has not been taking meds at home. pt denies SI HI admits to not sleeping. not eating well. Mental Health Triage Level: Level 2: The patient was brought to the ED for evaluation because of a legal pickup order. Adult Sepsis Screening: The patient does not have new or worsening altered mentation. Patient's respiratory rate is less than 22. Systolic blood pressure is greater than 100. Patient has a qSOFA score of 0- Negative Sepsis Screen. Suicide/Homicide risk assessment- The patient admits to and/or has been reported to be having suicidal ideations. Patient denies SI and HI but presents with another emotional, behavioral or other mental health complaint. The patient reports that he/she has not been admitted to an inpatient mental health facility in the last 30 days. The patient reports that he/she has a recent or current history of substance abuse. The patient reports that he/she has no prior history of suicide attempt and/or organized plan. The patient reports that he/she has not experienced a significant life altering event in the last 30 days. The patient reports that he/she has adequate social support. The patient reports he/she has no significant chronic medical condition(s). 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 Transition of care: patient was not received from another setting of care. 11:52 Acuity: PHILIP Level 3 [facility] 11:52 Method Of Arrival: Police Car [facility] Triage Assessment: 12:02 General: Appears in no apparent distress, comfortable, Behavior is cooperative. Pain: bcj Denies pain. HIV screening NA for this visit Offered previously. Neurological: Level of Consciousness is awake, alert, Oriented to person, place, time. Derm: Skin is pink, warm & dry. Historical: - Allergies: no known allergies; - Home Meds: 1. has not taken any meds x 1 month 2. Invega Sustenna intramuscular intramuscular once moly (Last dose: 12/31/2015) 3. Prozac 20 mg Oral cap 1 cap once daily (Last dose: Unknown) 4. Risperdal 2 mg Oral tab 1 tab 2 times per day (Last dose: Unknown) 5. Depakote 500 mg Oral TbEC 2 tabs nightly (Last dose: Unknown) - PMHx: Schizophrenia; - PSHx: Cholecystectomy; - The history from nurses notes was reviewed: and I agree with what is documented. - Social history: Smoking status: Patient uses tobacco products, heavy tobacco smoker. No barriers to communication noted, The patient speaks fluent Slovenian, Speaks appropriately for age. - Family history: Not pertinent. - : The pt / caregiver states he / she is not on anticoagulants. Home medication list is obtained from the patient. - Hospitalizations: : No recent hospitalization is reported. - Exposure Risk Screening:: None identified. - Immunization history:: All immunizations up-to-date. - Social history:: the patient smokes cigarettes the patient drinks alcohol, the patient does not use illicit drugs. Screenin:03 Screening information is obtained from the patient. Fall risk: No risks identified. bcj Assistance ADL's: requires no assistance with activities of daily living. Abuse/DV Screen: The patient / caregiver reports he/she is: not in a situation that causes fear, pain or injury. Nutritional screening: No deficits noted. Advance Directives: Currently, there is no health care proxy. home support is adequate. Assessment: 12:03 Adult Sepsis Screening:. General: Appears in no apparent distress, comfortable. Pain: bcj Denies pain. 13:00 General: Appears in no apparent distress, comfortable, Behavior is appropriate for age, jo3 cooperative. Pain: Denies pain. Neurological: Level of Consciousness is awake, alert. Respiratory: Airway is patent Respiratory effort is even, unlabored. Derm: Skin is intact, Skin is dry, Skin is normal. 14:00 Reassessment: Patient appears in no apparent distress at this time. No significant jo3 changes noted. Security observing . 15:40 Reassessment: Patient appears in no apparent distress at this time. Mother at bedside. jo3 Awaiting admission at this time. Aware of plan of care. Security observing . 17:22 General: Appears in no apparent distress, comfortable, Behavior is cooperative, quiet. jo3 General: Resting quietly on stretcher at this time. Mother left pt room at this time. Mother reports to this play writer that pt has not been taking home medications consistently for 1-2 months. Pt has not had Invega injection since 12/30. other also states that pt has been abusing "Zita" and cocaine and ETOH. . Neurological: No deficits noted. Level of Consciousness is awake, alert. Respiratory: Airway is patent Respiratory effort is even, unlabored. Derm: Skin is intact, Skin is dry, Skin is normal. 19:33 General: Patient received from previous shift. Calm and cooperative. No s/s distress. cf2 Sitter at bedside. Will continue to monitor . 20:30 Adult Sepsis Screening: The patient does not have new or worsening altered mentation. cf2 Patient's respiratory rate is less than 22. Systolic blood pressure is greater than 100. Patient has a qSOFA score of 0- Negative Sepsis Screen. 20:31 General: Patient resting comfortably. No s/s distress. Remains calm and cooperative. cf2 Patient being prepared for transport to floor.. Mental Health Eval: 12:35 Status: The patient is not a truck service technician or dependent. [facility]: The patient is not an established patient of [facility]. Referral Information: Evaluation referral is generated by a police agency: [employer] on . The patient was referred for evaluation because Pt reportedly decompensating. A .45 was requested by pt's mother after concerns were expressed by pt's therapist because pt had failed to present several times for monthly injection of Invega. Mother says pt has been experiencing AH and delusions which are increasing. 14:42 Mental health consult is initiated at 14:45. Subjective: The patients chief complaint ml4 is pt states, "I'm here because I need a medication increase." Pt reports missing his last Invega injection, but feels the medication was not effective. He admits not wanting to be prescribed Invega any longer, but admits wanting his other medication dosage increased. Pt reports wanting to return home, denies SI and HI. He appears to present well during evaluation, however as interview progresses, the more paranoid he becomes. He is delayed answering questions, positive thought blocking, and appears to be internally pre-occupied. Spoke to mother separately who reports pt is decompensating due to non-compliance. Last dose of Invega injection was Dec, 2015. Mother reports pt stated this am, "something inside of me is eating the medication." Additionally, she reports pt's new acquaintance has been taking advantage of him and supplying him with dugs(Zita and Cocaine), which may be causing symptoms. Mother reports pt is responding to internal stimuli and states, "he has non-verbal conversations with someone who is not there." . Delusions are paranoid, Patient's mood is anxious, Auditory Hallucinations are suspected by Mother . Visual Hallucinations are suspected by Mother . Mental Health history: abusing cocaine. crack cocaine. methamphetamine. schizophrenia, Mental Health Admissions: [facility] 08/17/13 Current Outpatient Mental Health Services: [facility] . Current living environment is Family / Home Support: adequate family support, however pt resides alone. Patient presents to Emergency Department with the following symptoms within the past 2 weeks: anxiety, decreased appetite, auditory hallucinations Mother visual hallucinations, Mother non-compliance, paranoia, poor concentration, poor impulse control, psychosis, relational problem, sleep disturbance - insomnia. Substance abuse: Pt denies. Mental status exam: Patients appearance is appropriate, Patient's behavior is bizarre, Speech is mumbled. Affect is restricted. Mood is anxious. Hallucinations are Denied, however heavily suspected . Appetite is poor. Memory is fair. Energy level is normal. Content of thought is paranoid Thought process is intact. Cognitive level is oriented to person, place, time and situation Patient's insight is poor. Judgement is poor. Rapport with interviewer is guarded. Suicidal Ideation is denied. Homicidal ideation is denied. Disposition: Medically cleared for disposition by Edenilson Sepulveda MD. Narrative: Awaiting psychiatric consult... 16:49 Disposition: Psychiatric Consult is performed by phone with Dr Terry De La Rosa. [facility] ml4 Admission Criteria: The patient displays symptoms of severe psychiatric disorder resulting in disordered behavior and significant interference with his / her ability to maintain self care. The patient requires continuous observation and/or control to protect self, others or property. The patient's care requires a multi-modal treatment plan under close supervision and coordination due to the complexity and severity of the patient's symptoms. The patient requires administration and monitoring of psychoactive medications by skilled medical providers due to the side effects of the psychoactive medications or significant dosage adjustments. Legal Status: Patient's legal status will be Emergency admission: 39. [place] because the patient does not display any suicidal or homicidal ideations and does not pose a risk to self or others. DSM-V Differential Diagnosis: Schizophrenia (F20.9). Narrative: Notice of Status and Rights, FAQ, and Bill of Rights was given at bedside. Awaiting: transfer to [facility]. 16:53 Narrative: Mother is requesting drug and alcohol rehab for pt upon discharge due to pt ml4 abusing Zita and Marijuana. 18:40 Insurance Pre-Certification: approved by: Quintin Clarke \\Christopher\\ [facility] Community Plan. Pt is approved ml4 for 5 days(02/25-03/01) with review due on 03/02/16. Auth #[id number]. Psych: 12:05 Mental Health Triage Level: Level 2: The patient displays active suicidal ideations. [facility] 12:05 Subjective: The patients chief complaint is needs medication change. Delusions are denied. Patient's mood is appropriate. Auditory Hallucinations are reported by the patient. 12:05 Objective: Patient is cooperative, Speech is normal. Affect is appropriate. 12:05 Substance abuse: Pt denies Vital Signs: 12:02 BP 141 / 82; Pulse 82; Resp 16; Temp 96.8(O); Pulse Ox 98% on R/A; Weight 84.37 kg; [facility] Height 5 ft. 8 in. (172.72 cm); Pain 0/10; 20:25 BP 134 / 82; Pulse 68; Resp 18; Temp 97.3; Pulse Ox 98% ; Pain 0/10; mas 12:02 Body Mass Index 28.28 (84.37 kg, 172.72 cm) [facility] Vitals: 12:02 Log In time N/A- police car arrival. [facility] ED Course: 11:29 Patient visited by Jan León Reg. lg 11:29 Patient moved to [facility] lg 11:42 [address] 11:59 Triage Initiated [facility] 12:00 Pt greeted and oriented to ED. Patient advised of names of staff involved in care, pjf location of call smith, wait times and NPO status. Accompanied by Law Enforcement, wplexy (9.45), Side rails up X 1. Security observing. Property removed, secured in belongings bag- Placed in locker #4. Door closed. Noise minimized. Visitors limited. Report received from [facility] - psych. triage level #2, ams, requesting medication adjustment, cooperative \\T\\ this time. Psych Safety Check: Location: Psych Room. 12:03 The patient / caregiver is instructed regarding the plan of care and ED course. Patient bcj has correct armband on for positive identification. Placed in gown. Placed in psych safe attire. Bed in low position. Call light in reach. 12:03 No IV's were initiated during this patient's visit. No procedures done that require bcj assistance. 12:04 Patient visited by Juan José Estrada Security Aide. pjf 12:04 Edenilson Sepulveda MD is Attending Physician. pc 12:06 Patient visited by Fox Lopez RN. bcj 12:15 Psych Safety Check: Location: Psych Room. Visual Assessment: Cooperative. pjf 12:44 Patient visited by Juan José Estrada Security Aide. pjf 12:45 Psych Safety Check: Location: Psych Room. Visual Assessment: Cooperative. pjf 12:54 Patient visited by Edenilson Sepulveda MD. pc 13:11 Patient visited by Juan José Estrada Security Aide. pjf 13:12 Acetaminophen Level Sent. nb2 13:12 Basic Metabolic Profile Sent. nb2 13:12 Complete Blood Count Sent. nb2 13:12 Drug Eval Toxicology ED Only Sent. nb2 13:12 Ethyl Alcohol (ethanol) Sent. nb2 13:12 Liver Profile Sent. nb2 13:12 Salicylate Level Sent. nb2 13:12 Thyroid Stimulating Hormone Sent. nb2 13:34 Patient visited by Juan José Estrada Security Aide. pjf 13:35 Property secured in secure belongings bag, Secure bag Number [id number], placed in ED safe.pjf 13:45 Psych Safety Check: Location: Psych Room. Visual Assessment: Cooperative. pjf 14:01 Patient visited by Juan José Estrada Security Aide. pjf 14:14 Patient visited by Juan José Estrada Security Aide. pjf 14:25 Terry De La Rosa is Hospitalizing Provider. pc 15:15 Patient visited by Cm Lama PCA. mdr 15:24 [facility] Payment Agreement was scanned into [employer] and attached to record. mm15 15:44 Patient visited by Juan José Estrada Security Aidalma rosa. pjf 16:06 Patient visited by Asiya Del Rosario RN. jo3 16:17 Patient visited by Juan José Estrada Security Aide. pjf 16:31 Patient visited by Juan José Estrada Security Aide. pjf 16:44 Patient visited by Juan José Estrada Security Aidalma rosa. pjf 16:45 Psych Safety Check: Location: Psych Room. Visual Assessment: Cooperative. pjf 17:00 Psych Safety Check: Location: Psych Room. Visual Assessment: Cooperative. pjf 17:15 Psych Safety Check: Location: Psych Room. Visual Assessment: Cooperative. pjf 17:27 Patient visited by Asiya Del Rosario RN. jo3 17:30 Psych Safety Check: Location: Psych Room. Visual Assessment: Cooperative. pjf 17:48 Patient visited by Juan José Estrada Security Aide. pjf 18:17 Patient visited by Juan José Estrada Security Aidalma rosa. pjf 18:43 Patient visited by Juan José Estrada Security Aidalma rosa. pjf 19:11 Patient visited by Asiya Del Rosario RN. jo3 19:20 Catrachita Matthews,ADAL is Primary Nurse. cf2 19:20 Patient visited by Catrachita Matthews RN. cf2 19:20 Patient visited by Catrachita Matthews,ADAL. cf2 19:30 Patient visited by Laz Scott. mas 19:45 Patient visited by Laz Scott. mas 20:00 Patient visited by Laz Scott. mas 20:12 Patient visited by Catrachita Matthews RN. cf2 20:16 Patient visited by Lza Scott. mas 20:30 Patient visited by Laz Scott. mas 20:30 Patient visited by Catrachita Matthews RN. cf2 Order Results: Lab Order: Acetaminophen Level; SPEC'M 02/26/16 13:10 Test: ACETAMINOPHEN LEVEL; Value: < 2.0; Range: 10.0-30.0; Abnormal: Below low normal; Units: UG/ML; Status: F Lab Order: Basic Metabolic Profile; SPEC'M 02/26/16 13:10 Test: GLUCOSE, FASTING; Value: 92; Range: 70-105; Units: MG/DL; Status: F Test: BLOOD UREA NITROGEN; Value: 7; Range: 7-18; Units: MG/DL; Status: F Test: CREATININE FOR GFR; Value: 0.76; Range: 0.70-1.30; Units: MG/DL; Status: F Test: GLOMERULAR FILTRATION RATE; Value: > 60.0; Range: >60; Status: F Test: SODIUM LEVEL; Value: 141; Range: 136-145; Units: MEQ/L; Status: F Test: POTASSIUM SERUM; Value: 4.1; Range: 3.5-5.1; Units: MEQ/L; Status: F Test: CHLORIDE LEVEL; Value: 106; Range: 98-107; Units: MEQ/L; Status: F Test: CARBON DIOXIDE LEVEL; Value: 27; Range: 21-32; Units: MEQ/L; Status: F Test: ANION GAP; Value: 8; Range: 8-16; Units: MEQ/L; Status: F Test: CALCIUM LEVEL; Value: 8.8; Range: 8.5-10.1; Units: MG/DL; Status: F Test Note: ; Units are mL/min/1.73 m2 Chronic Kidney Disease Staging per NKF: Stage I & II GFR >=60 Normal to Mildly Decreased Stage III GFR 30-59 Moderately Decreased Stage IV GFR 15-29 Severely Decreased Stage V GFR <15 Very Little GFR Left ESRD GFR <15 on CERTIFIED ANESTHESIOLOGIST ASSISTANT Lab Order: Complete Blood Count; [facility] 02/26/16 13:10 Test: WHITE BLOOD COUNT; Value: 6.3; Range: 4.0-10.0; Units: K/mm3; Status: F Test: RED BLOOD COUNT; Value: 4.53; Range: 4.30-6.10; Units: M/mm3; Status: F Test: HEMOGLOBIN; Value: 14.7; Range: 14.0-18.0; Units: g/dl; Status: F Test: HEMATOCRIT; Value: 41.6; Range: 42.0-52.0; Abnormal: Below low normal; Units: %; Status: F Test: MEAN CORPUSCULAR VOLUME; Value: 91.8; Range: 80.0-96.0; Units: fl; Status: F Test: MEAN CORPUSCULAR HEMOGLOBIN; Value: 32.4; Range: 27.0-33.0; Units: pg; Status: F Test: MEAN CORPUSCULAR HGB CONC; Value: 35.3; Range: 32.0-36.5; Units: g/dl; Status: F Test: RED CELL DISTRIBUTION WIDTH; Value: 12.1; Range: 11.5-14.5; Units: %; Status: F Test: PLATELET COUNT, AUTOMATED; Value: 298; Range: 150-450; Units: k/mm3; Status: F Lab Order: Drug Eval Toxicology ED Only; SPEC'M 02/26/16 13:10 Test: AMPHETAMINES LEVEL URINE; Value: NEGATIVE; Range: NEGATIVE; Status: F Test: BARBITURATES URINE; Value: NEGATIVE; Range: NEGATIVE; Status: F Test: BENZODIAZEPINES URINE; Value: NEGATIVE; Range: NEGATIVE; Status: F Test: CANNABINOIDS URINE; Value: NEGATIVE; Range: NEGATIVE; Status: F Test: COCAINE METABOLITE URINE; Value: NEGATIVE; Range: NEGATIVE; Status: F Test: METHADONE URINE; Value: NEGATIVE; Range: NEGATIVE; Status: F Test: OPIATES URINE; Value: NEGATIVE; Range: NEGATIVE; Status: F Test: TRICYCLIC ANTIDEPRESS URINE; Value: NEGATIVE; Range: NEGATIVE; Status: F Test Note: ; ALL PRESUMPTIVE POSITIVE FINDINGS ARE UNCONFIRMED NORMAL VALUES THRESHOLD IN NG/ML AMPHETAMINES 1000 METHAMPHETAMINES 1000 BARBITURATES 300 BENZODIAZEPINES 300 CANNABINOIDS (THC) 50 COCAINE METABOLITE 300 METHADONE 300 OPIATES 300 PHENCYCLIDINE 25 TRICYCLIC ANTIDEPRESSANTS 1000 RESULTS ARE FOR MEDICAL PURPOSES ONLY. ALL URINE SPECIMENS WILL BE SAVED FOR 3 DAYS. IF CONFIRMATION OF A PRESUMPTIVE POSTIVE SCREEN RESULT IS DESIRED, CALL CHEMISTRY ([phone]) AND REQUEST URINE TO BE SENT TO REFERENCE LAB. FOR A LIST OF CLOSELY RELATED COMPOUNDS PLEASE CALL THE LAB. Lab Order: Ethyl Alcohol (ethanol); SPEC'M 02/26/16 13:10 Test: ETHYL ALCOHOL (ETHANOL); Value: < 0.003; Range: 0.000-0.010; Units: %; Status: F Lab Order: Liver Profile; SPEC'M 02/26/16 13:10 Test: AST/SGOT; Value: 16; Range: 15-37; Units: U/L; Status: F Test: ALT/SGPT; Value: 35; Range: 12-78; Units: U/L; Status: F Test: ALKALINE PHOSPHATASE; Value: 73; Range: 45-117; Units: U/L; Status: F Test: BILIRUBIN,TOTAL; Value: 0.2; Range: 0.2-1.0; Units: MG/DL; Status: F Test: BILIRUBIN,DIRECT; Value: < 0.1; Range: 0.0-0.2; Units: MG/DL; Status: F Test: TOTAL PROTEIN; Value: 7.2; Range: 6.4-8.2; Units: GM/DL; Status: F Test: ALBUMIN; Value: 3.4; Range: 3.2-5.2; Units: GM/DL; Status: F Test: ALBUMIN/GLOBULIN RATIO; Value: 0.89; Range: 1.00-1.93; Abnormal: Below low normal; Status: F Lab Order: Salicylate Level; SPEC'M 02/26/16 13:10 Test: SALICYLATE LEVEL; Value: 4.6; Range: 5.0-30.0; Abnormal: Below low normal; Units: MG/DL; Status: F Lab Order: Thyroid Stimulating Hormone; SPEC'M 02/26/16 13:10 Test: THYROID STIMULATING HORMONE; Value: 0.785; Range: 0.358-3.740; Units: uIU/ML; Status: F Outcome: 14:25 Decision to Hospitalize by Provider. 20:33 Discharge Assessment: Patient awake, alert and oriented x 3. No cognitive and/or cf2 functional deficits noted. Patient verbalized understanding of disposition instructions. Patient awake and alert. Oriented to person, place and time. Patient verbalized understanding of disposition instructions. patient administered narcotics - no. The following High Risk Discharge criteria are identified: Yes, Threat to self. Admitted to Psych. Condition: good Condition: stable. No special radiology studies were completed. 20:40 Patient left the ED. cf2 Signatures: Edenilson Sepulveda MD MD pc Johnson, Bruce, RN RN shon Singleton, Kina, PSA PSA ca Jan León, Reg Reg lg Juan José Estrada, Security Aide Asiya ChampagneRN RN jo3 Patricia Man, PSA PSA ml4 Laz Scott Marlynn mm15 Armand Gallardo, MANAGER BABY MANAGER BABY jrd Cm Lama, MANAGER BABY MANAGER BABY mdr Catrachita Matthews,RN RN cf2 Evie Byrd nb2 Corrections: (The following items were deleted from the chart) 18:38 16:53 Narrative: Mother is requesting drug and alcohol rehab for pt upon discharge ml4 ml4 20:36 20:33 General: Patient received from previous shift. Patient resting comfortably. Calm cf2 and cooperative. No s/s distress. Sitter remains in place. Will continue to monitor. . cf2 Chart Complete MTDD
[2016-02-29 06:27] VITALS: BP 137/68
--- NOTE | 2016-02-29 07:28 | MHHPE ---
DATE OF ADMISSION: 02/26/2016 CURRENT MEDICATIONS: - Invega Sustenna IM every month, last dose 12/31/2015, unknown dosage - Prozac 20 mg every morning - Risperdal 2 mg twice a day - Depakote ER 1000 mg at bedtime CHIEF COMPLAINT: Per mother's report "something inside of me is eating the medication." HISTORY OF PRESENT ILLNESS: This is a 26-year-old male living either in his own apartment or with his parents. The patient has been decompensating recently. He had been doing well on the Invega Sustenna injection, however he missed his last dosage. He did order picker the prescription in January of the Invega Sustenna from the pharmacy but never went into the clinic to get the actual injection. The patient has found the Risperdal and Invega combination helpful for his psychosis. He states that without it he acts "schizo." By this he means that he hears voices and he talks to himself. The patient reports recent paranoia. The patient has not been attending to his activities of daily living (ADL). He has been abusing crack cocaine, lisa and methamphetamine. He drinks episodically as well. The patient has a long history of alcoholism dating back to teenage years. He has had multiple DWIs over the years. He claims that he is still taking his oral medications but there is no proof of this. Depakote level was not done at the time of admission but will be checked. PAST PSYCHIATRIC HISTORY: The patient has a long psychiatric history with multiple psychiatric hospitalizations here at [facility] as well as [facility]. Patient attends the local community care clinic. He missed his last injection of Invega Sustenna. Staff will check on the dose of the injection. The patient's complaint is that the antipsychotics and Prozac wears off and he would like to have his medication dose adjusted. The patient has been on Geodon and Zyprexa in the past. Due to his history of poor medication compliance, he was put on Risperdal Consta and then most recently Invega Sustenna about a year or two ago. MEDICAL HISTORY: The patient has been treated for diabetes mellitus in the past, but not recently. He was on metformin, but then stopped seeing his medical professional. This will be assessed in the hospital. ALLERGIES: Patient denies. LEGAL HISTORY: None current. CHEMICAL DEPENDENCY: Positive for multiple substances. The patient states he self medicates with the alcohol. SOCIAL HISTORY: Patient was born in [place], [place] but has lived most of his life here in [place]. He dropped out of high in the eleventh grade. He never got his GED. Relationship with parents is good. Relationship with his brother and sister is also good. The patient has no work history. FAMILY PSYCH HISTORY: Patient denies. MENTAL STATUS EXAMINATION: The patient is alert and oriented. He is cooperative. He does have a strong body odor. Hygiene is quite impaired. Grooming is impaired. Speech is quite rapid and pressured, he goes off on tangents frequently. He does have signs of thought blocking as well as times. Patient reports paranoid ideation. He appears to be responding to internal stimuli and reports auditory hallucinations. He feeling depressed. He does show signs of possible rosanna. Insight and judgment are quite impaired. The patient is not able to take care of himself safely in the community. ASSESSMENT: The patient shows signs of psychotic decompensation. The patient has had possible alcohol and/or substance use recently which may well have aggravated his psychiatric condition. DIAGNOSIS: Schizoaffective disorder, bipolar type. Alcohol use disorder. Stimulant use disorder. PROBLEM LIST: Substance use. Poor impulse control. Rosanna. Altered perceptions. PLAN: Increase Risperdal. Restart Invega Sustenna injection. Obtain Depakote level.
[2016-02-29] MEDS: NICOTINE 21MG/24HR 1 EA TRANSDERMAL TD SCH (08:33)
[2016-02-29] MEDS: MULTIVITAMINS/MINERALS THERAP 1 TAB PO SCH (08:34)
[2016-02-29] MEDS: FOLIC ACID 1 MG TAB PO SCH (08:34)
[2016-02-29] MEDS: risperiDONE 2 MG TAB PO SCH ×3 (08:34→19:55)
[2016-02-29] MEDS: FLUoxetine 20 MG CAP PO SCH (08:34)
[2016-02-29] MEDS: THIAMINE 100 MG TAB PO SCH (08:34)
[2016-02-29 18:00] VITALS: BP 150/88
[2016-02-29] MEDS ORDERED: PALIPERIDONE PALMITATE 234 MG/1.5 ML INJ (INVEGA SUSTENNA)(J2426) IM ONE (18:00)
[2016-02-29] MEDS: traZODone 50 MG TAB PO PRN (19:55)
[2016-02-29] MEDS: DIVALPROEX 500MG *ER* TAB PO SCH (19:56)
[2016-03-01 06:00] VITALS: BP 142/81
[2016-03-01] MEDS: risperiDONE 2 MG TAB PO SCH ×3 (08:14→21:56)
[2016-03-01] MEDS: NICOTINE 21MG/24HR 1 EA TRANSDERMAL TD SCH (08:14)
[2016-03-01] MEDS: FLUoxetine 20 MG CAP PO SCH (08:14)
[2016-03-01] MEDS: MULTIVITAMINS/MINERALS THERAP 1 TAB PO SCH (08:14)
[2016-03-01] MEDS: FOLIC ACID 1 MG TAB PO SCH (08:14)
[2016-03-01 11:59] VITALS: BP 134/82
[2016-03-01 18:00] VITALS: BP 136/76
[2016-03-01] MEDS: traZODone 50 MG TAB PO PRN (21:56)
[2016-03-01] MEDS: DIVALPROEX 500MG *ER* TAB PO SCH (21:56)
[2016-03-02 07:14] VITALS: BP 111/56
[2016-03-02] MEDS: FLUoxetine 20 MG CAP PO SCH (08:51)
[2016-03-02] MEDS: MULTIVITAMINS/MINERALS THERAP 1 TAB PO SCH (08:51)
[2016-03-02] MEDS: FOLIC ACID 1 MG TAB PO SCH (08:51)
[2016-03-02] MEDS: NICOTINE 21MG/24HR 1 EA TRANSDERMAL TD SCH (08:51)
[2016-03-02] MEDS: risperiDONE 2 MG TAB PO SCH ×3 (08:51→21:09)
--- NOTE | 2016-03-02 09:42 | IPN ---
DATE: 03/01/2016 VITAL SIGNS: Temperature 97.4, pulse 76, respiratory rate 18, blood pressure 134/82. Depakote level trough this morning was 25.6. CURRENT MEDICATION: - Depakote ER 1 gram by mouth nightly - Risperdal 2 mg by mouth three times a day - Prozac 20 mg by mouth every morning - trazodone as needed HISTORY OF PRESENTING ILLNESS: Patient was asleep in his bed when I went to see him. I was accompanied by Urmila Verma, nurse on the unit. Patient states he had his Invega Sustenna yesterday. He said he is doing well from it. No side effects. I encouraged him to get up and be active around the unit so we can monitor more closely for side effects from the medication. Patient states he slept well. He denied any other problems with his treatment. He continues to present with poor self-care and restricted affect. MENTAL STATUS EXAMINATION: 25-year-old -[place] male, average height, obese build, pleasant, calm, cooperative, dysphoric, anxious. Affect restricted. Mood congruent. Thought form logical, coherent and goal directed. Thought content: Denies suicidal ideation (SI), homicidal ideation (HI). Perception: Denies auditory or visual hallucinations. Insight and judgment poor. ASSESSMENT AND PLAN: Patient is a 25-year-old -[place] male who is being recommenced on Invega Sustenna. Monitor response to Invega Sustenna. Depakote will probably need to be increased tomorrow. We just started him on the Invega Sustenna yesterday. Hence, we will give him today with no medication changes and potentially his regular treating team can review his Depakote dose tomorrow. MTDD
[2016-03-02 12:25] VITALS: BP 138/78
[2016-03-02 18:00] VITALS: BP 129/69
--- NOTE | 2016-03-02 19:25 | IPN ---
DATE: 02/28/2016 VITAL SIGNS: Temperature 97.9, pulse 72, respiratory rate 16, blood pressure 140/76. CURRENT MEDICATION: - Depakote ER 1 gram by mouth nightly - Risperdal 2 mg by mouth three times a day - Prozac 20 mg by mouth every morning - trazodone as needed HISTORY OF PRESENTING ILLNESS: Patient states that he has been put on some medications including Risperdal. He states that he is doing okay, "I guess". He states that he would like to go back on his Invega Sustenna. Dr. Juarez's note is not up yet. Dr. Juarez recently made some med changes including just increased his Depakote. Patient needs to be monitored for effects of this. MENTAL STATUS EXAM:: 25-year-old -Polish male, average height, slightly obese build, pleasant, calm, cooperative, surprised, anxious, and internally preoccupied. Restricted affect. Thought form logical and coherent. Thought content: Denies suicidal ideation (SI), homicidal ideation (HI). Perception: Denies auditory or visual hallucinations. Insight and judgment poor. Impulse control poor. ASSESSMENT: 25-year-old -Polish male hospitalized with psychosis. PLAN: Continue to monitor response to Depakote. Patient may benefit from Invega Sustenna going forward as he is requesting to go back on it.
[2016-03-02] MEDS: DIVALPROEX 500MG *ER* TAB PO SCH (21:09)
[2016-03-02] MEDS: traZODone 50 MG TAB PO PRN (21:09)
--- NOTE | 2016-03-03 06:27 | IPN ---
DATE: 02/29/2016 VITAL SIGNS: Temperature 97, pulse 67, respiratory rate 16, blood pressure 137/68. CURRENT MEDICATION: - Depakote ER 1 gram by mouth nightly - Risperdal 2 mg three times a day - Prozac 20 mg every morning - trazodone as needed HISTORY OF PRESENTING ILLNESS: Patient states sleep is okay. He continues to be interested in Invega. He likes the Risperdal. He states he would like to go back on the Invega injection. I reviewed Dr. Juarez's intake, which is now up. Dr. Juarez also recommended restarting the Invega Sustenna and Depakote level. Patient's Depakote level on 02/28/2016 was low at 21.4. MENTAL STATUS EXAMINATION: 25-year-old male, average height, overweight build, pleasant, calm, cooperative, depressed, anxious. Affect restricted. Mood congruent. Thought form logical, coherent and goal directed. PLAN: Start Invega Sustenna intramuscular (IM) and Depakote level tomorrow morning.
[2016-03-03 06:33] VITALS: BP 141/68
[2016-03-03] MEDS: risperiDONE 2 MG TAB PO SCH ×3 (08:07→20:06)
[2016-03-03] MEDS: FOLIC ACID 1 MG TAB PO SCH (08:07)
[2016-03-03] MEDS: MULTIVITAMINS/MINERALS THERAP 1 TAB PO SCH (08:07)
[2016-03-03] MEDS: NICOTINE 21MG/24HR 1 EA TRANSDERMAL TD SCH (08:07)
[2016-03-03] MEDS: FLUoxetine 20 MG CAP PO SCH (08:07)
[2016-03-03 12:08] VITALS: BP 125/68
[2016-03-03 18:00] VITALS: BP 126/61
[2016-03-03] MEDS: traZODone 50 MG TAB PO PRN (20:06)
[2016-03-03] MEDS ORDERED: DIVALPROEX 250MG *ER* TAB PO SCH (21:00)
--- NOTE | 2016-03-03 21:01 | IPN ---
DATE OF SERVICE: 03/02/2016 VITAL SIGNS: Temperature 96.6, pulse 80, respirations 16, blood pressure 138/78. CURRENT MEDICATIONS: - Depakote 1000 mg nightly - Risperdal 2 mg three times a day - Prozac 20 mg every morning - trazodone 50 mg nightly as needed - Invega Sustenna monthly injection 234 mg intramuscularly PSYCHIATRIC HISTORY: Patient did get his Invega injection over the weekend. He is tolerating it well. He likes the Invega, reporting that it gives him more energy. He also reports that it has various somatic benefits, such as helping with his eyes and his ears. Patient was in good behavioral control over the . He is not voicing any depressive symptoms. He denies any suicidal thoughts. He still hears voices, but apparently they are less prominent. He reports decrease in paranoia. He does like the Risperdal oral tablets, which he gets three times a day. Patient is attending some groups, but most responses are one-word answers to staff members. Staff have noticed him appearing calmer and more cooperative. Family has visited over the weekend. He claims that these family visits have gone well. He hopes to go home by his birthday, which is the end of the week. MENTAL STATUS EXAMINATION: Patient still shows signs of thought disorder, going off on tangents at times, which he describes as "acting schizo." Speech is still somewhat rapid and pressured. Auditory hallucinations less prominent. Not voicing any homicidal or suicidal thoughts. Insight and judgment seem improved. Hygiene is definitely improved. IMPRESSION: 1. Schizoaffective disorder, biopolar type. 2. Alcohol use disorder. 3. Stimulant use disorder. PLAN: Coordinate care with outpatient provider. Patient's Depakote level is low, at 25.6. We will need to find out what his outpatient dosage is, so the medication can be adjusted.
[2016-03-03 22:30] VITALS: BP 134/70
[2016-03-04 06:16] VITALS: BP 127/79
[2016-03-04] MEDS: risperiDONE 2 MG TAB PO SCH ×3 (09:02→21:04)
[2016-03-04] MEDS: MULTIVITAMINS/MINERALS THERAP 1 TAB PO SCH (09:02)
[2016-03-04] MEDS: FLUoxetine 20 MG CAP PO SCH (09:02)
[2016-03-04] MEDS: NICOTINE 21MG/24HR 1 EA TRANSDERMAL TD SCH (09:02)
[2016-03-04] MEDS: FOLIC ACID 1 MG TAB PO SCH (09:02)
--- NOTE | 2016-03-04 09:32 | IPN ---
DATE: 03/03/2016 VITAL SIGNS: Temperature 97.3, pulse 88, respirations 18, blood pressure 125/68. CURRENT MEDICATIONS: - Depakote ER 1000 mg at night - folic acid 1 mg daily - multivitamin one tablet daily - Risperdal 2 mg twice a day - Prozac 20 mg in the morning - trazodone 50 mg at night as needed PSYCHIATRIC HISTORY: The patient likes the Risperdal. He likes to get it three times a day, even though this might be an issue once he is discharged. The patient has been abusing drugs. He is making plans on moving into his mother's house who will supervise his daily activities. He promises not to use drugs while living with her. The patient's Depakote level is low. The clinical indication for Depakote is not good. He is not sure why he is on it. He was on the Depakote during his hospitalization here two years ago at the same dosage, even though it appears to be subtherapeutic levels. There is a reference to his being on Depakote 250 mg daily back in 2009. At that point in time, he was diagnosed with paranoid schizophrenia and was transferred on to [facility]. The patient is agreeable to weaning off the Depakote. He feels that the Risperdal Invega is more effective. He likes the vitamins. He thinks that they give him more energy. MENTAL STATUS EXAMINATION: The patient is alert and oriented. Hygiene is improved. No body odor noted today. Speech is still rather rapid and pressured, however. He still goes off on tangents at times. Thought blocking is improved. Paranoia has improved. Auditory hallucinations persist but are less prominent. He denies feeling depressed or suicidal. No current signs of vivian. Insight and judgment seem to be improving. DIAGNOSES: 1. Schizophrenia, chronic versus schizoaffective disorder, bipolar type. 2. Alcohol use disorder. 3. Stimulant use disorder. PLAN: Start weaning off Depakote. Continue Risperdal.
[2016-03-04 18:00] VITALS: BP 120/59
[2016-03-04] MEDS ORDERED: DIVALPROEX 250MG *ER* TAB PO SCH (21:00)
[2016-03-04] MEDS: traZODone 50 MG TAB PO PRN (21:04)
[2016-03-04 21:05] VITALS: BP 134/67
[2016-03-05 06:00] VITALS: BP 119/72
[2016-03-05] MEDS: NICOTINE 21MG/24HR 1 EA TRANSDERMAL TD SCH (09:10)
[2016-03-05] MEDS: MULTIVITAMINS/MINERALS THERAP 1 TAB PO SCH (09:10)
[2016-03-05] MEDS: risperiDONE 2 MG TAB PO SCH ×3 (09:10→20:36)
[2016-03-05] MEDS: FLUoxetine 20 MG CAP PO SCH (09:10)
[2016-03-05] MEDS: FOLIC ACID 1 MG TAB PO SCH (09:11)
[2016-03-05 11:59] VITALS: BP 121/72
--- NOTE | 2016-03-05 12:56 | IPN ---
DATE: 03/04/2016 VITAL SIGNS: 96.8, pulse 62, respirations 20, blood pressure 127/59. CURRENT MEDICATIONS: - Risperdal 2 mg three times a day - Prozac 20 mg every morning - trazodone 50 mg at bedtime - Depakote ER 750 mg at bedtime PSYCHIATRIC HISTORY: Patient tolerated the lower dose of Depakote last night well. He denies any current racing thoughts. He states that his mood is stable. He denies depression. He still isolates a lot. He is not attending groups, according to staff. Patient reports he got into a fight with his mother on the phone last night. She was concerned about his drug use and the fact that he is not able to cope with peer pressure. There are conflicted stories about his returning home to live with mother as opposed to getting his own apartment. Patient states he is willing to go to Narcotics Anonymous (NA) meetings upon discharge. We discuss weaning off Depakote gradually, which he feels comfortable with. MENTAL STATUS EXAMINATION: Patient is alert, oriented, and cooperative. Hygiene is not as good today. He does have body odor noted today. Speech is not rapid, however. Speech is not pressured. Patient still reports some paranoia. He still reports some auditory hallucinations. He is not depressed. He is not suicidal. No manic symptoms. Insight and judgment the same, fair. DIAGNOSES: 1. Schizophrenia, chronic, versus schizoaffective disorder, bipolar type. 2. Alcohol use disorder. 3. Stimulant use disorder. PLAN: Reduce Depakote further to 500 mg at bedtime.
[2016-03-05 18:00] VITALS: BP 116/70
[2016-03-05] MEDS: DIVALPROEX 250MG *ER* TAB PO SCH (20:36)
[2016-03-05] MEDS: traZODone 100 MG TAB PO PRN (20:36)
[2016-03-06 06:37] VITALS: BP 139/63
[2016-03-06] MEDS: risperiDONE 2 MG TAB PO SCH ×3 (08:04→20:26)
[2016-03-06] MEDS: MULTIVITAMINS/MINERALS THERAP 1 TAB PO SCH (08:04)
[2016-03-06] MEDS: NICOTINE 21MG/24HR 1 EA TRANSDERMAL TD SCH (08:04)
[2016-03-06] MEDS: FLUoxetine 20 MG CAP PO SCH (08:04)
[2016-03-06] MEDS: FOLIC ACID 1 MG TAB PO SCH (08:04)
[2016-03-06 12:30] VITALS: BP 130/64
[2016-03-06 18:00] VITALS: BP 127/69
[2016-03-06] MEDS: DIVALPROEX 250MG *ER* TAB PO SCH (20:26)
[2016-03-06] MEDS: traZODone 100 MG TAB PO PRN (20:26)
[2016-03-07 06:20] VITALS: BP 133/76
[2016-03-07] MEDS: FLUoxetine 20 MG CAP PO SCH (09:30)
[2016-03-07] MEDS: NICOTINE 21MG/24HR 1 EA TRANSDERMAL TD SCH (09:31)
[2016-03-07] MEDS: MULTIVITAMINS/MINERALS THERAP 1 TAB PO SCH (09:31)
[2016-03-07] MEDS: risperiDONE 2 MG TAB PO SCH ×3 (09:31→20:40)
[2016-03-07] MEDS: FOLIC ACID 1 MG TAB PO SCH (09:31)
--- NOTE | 2016-03-07 11:04 | IPN ---
DATE OF SERVICE: 03/05/2016 Temperature 97.7, pulse 88, respiration 16, blood pressure 121/72. CURRENT MEDICATION: - Depakote 500 mg at bedtime - Risperdal 2 mg three times a day - Prozac 20 mg every morning PSYCHIATRIC HISTORY: The patient has been monitored frequently by staff, talking to himself and responding to internal stimuli. The patient himself minimizes this, however. He has spoken to his mother about staying at her house upon discharge. Will monitor his medication compliance and hopefully help him from relapsing back on drugs. He is waking up about 3 a.m. We discussed increasing his trazodone. He is not sleeping as deeply since his Depakote dosage has been reduced, however, he has not shown any signs of vivian, however. MENTAL STATUS EXAMINATION: No signs of depression. He is certainly not manic. No signs of racing thoughts. He does still report some auditory hallucinations, responding to internal stimuli. He is also paranoid, somewhat guarded, with minimal interactions with peers. DIAGNOSES: 1. Schizophrenia, chronic, with acute exacerbation, versus schizoaffective disorder, bipolar type. 2. Alcohol use disorder. 3. Stimulant use disorder. PLAN: Reduce Depakote further to 250 mg at bedtime. Increase trazodone 100 mg at bedtime.
[2016-03-07 18:00] VITALS: BP 124/72
[2016-03-07] MEDS: traZODone 100 MG TAB PO PRN (20:40)
[2016-03-07] MEDS: DIVALPROEX 250MG *ER* TAB PO SCH (20:40)
[2016-03-08 06:00] VITALS: BP 126/69
[2016-03-08] MEDS: NICOTINE 21MG/24HR 1 EA TRANSDERMAL TD SCH (07:59)
[2016-03-08] MEDS: FLUoxetine 20 MG CAP PO SCH (08:00)
[2016-03-08] MEDS: risperiDONE 2 MG TAB PO SCH ×3 (08:00→21:51)
[2016-03-08] MEDS: MULTIVITAMINS/MINERALS THERAP 1 TAB PO SCH (08:00)
[2016-03-08] MEDS: FOLIC ACID 1 MG TAB PO SCH (08:00)
[2016-03-08 18:00] VITALS: BP 122/68
[2016-03-08] MEDS: ACETAMINOPHEN TAB 650MG DOSE (2X325MG) PO PRN (18:14)
[2016-03-08] MEDS: traZODone 100 MG TAB PO PRN (21:51)
[2016-03-09 06:11] VITALS: BP 145/70
[2016-03-09] MEDS: MULTIVITAMINS/MINERALS THERAP 1 TAB PO SCH (08:21)
[2016-03-09] MEDS: FLUoxetine 20 MG CAP PO SCH (08:21)
[2016-03-09] MEDS: FOLIC ACID 1 MG TAB PO SCH (08:21)
[2016-03-09] MEDS: NICOTINE 21MG/24HR 1 EA TRANSDERMAL TD SCH (08:21)
[2016-03-09] MEDS: risperiDONE 2 MG TAB PO SCH (08:22)
[2016-03-09] MEDS ORDERED: RISP2TAB30 PO (11:04)
[2016-03-09] MEDS ORDERED: TRAZ10TA PO (11:04)
[2016-03-09] MEDS ORDERED: FLUO20CA9 PO (11:04)
[2016-03-09] MEDS ORDERED: NICO21DI5 TD ×2 (11:29→11:51)
[2016-03-09] MEDS ORDERED: INVE234I IM (13:23)
[2016-03-09] MEDS ORDERED: PALIPERIDONE PALMITATE 156 MG/1ML INJ(INVEGA SUSTENNA)(J2426) IM ONE (14:00)
--- NOTE | 2016-03-09 17:19 | MHDS ---
DATE OF ADMISSION: 02/26/2016 DATE OF DISCHARGE: 03/09/2016 VITAL SIGNS: Temperature 96.4, pulse 98, respirations 16, blood pressure 145/70. LABORATORY DATA: Complete blood count (CBC) and differential within normal limits. Chemistry also within normal limits. Toxicology was negative for alcohol. Valproic acid levels were low at 21.4 and 25.6. DISCHARGE DIAGNOSES: 1. Schizoaffective disorder, bipolar type. 2. Alcohol use disorder. 3. Stimulant use disorder. DISCHARGE MEDICATIONS: - Risperdal 2 mg three times a day - Prozac 40 mg in the morning - trazodone 100 mg at night - Invega Sustena CHIEF COMPLAINT: "Feeling schizo." HISTORY OF PRESENT ILLNESS: The patient has missed several months of his Invega Sustena injection. His last dose was in November,. He complains of having "schizo" symptoms, he means auditory hallucinations. He does report recent paranoia as well. He claims the medication is wearing off even though obviously he is not taking it. The patient states that he likes to take the oral Risperdal in combination with the injectable agent. The patient has been on Depakote for a number of years, indication appears to be lacking. The patient does have a long psychiatric history with multiple psychiatric hospitalizations here at [facility], as well as [facility]. The patient does have a long-standing history of poor medication compliance. He was originally placed on Risperdal Consta and then switched to Invega Sustena about a year or two ago. PROGRESS ON THE UNIT: The patient remained guarded throughout the entire hospitalization. He slept a lot in his bed. He did attend a few groups, but contribution was minimal. The patient was restarted on the Invega Sustena injection with some benefit. He reported the auditory hallucinations to be improved. He reported the paranoia to be less prominent as well. His hygiene was still problematic with poor insight. He was often found talking to himself in his room by staff. Records are reviewed regarding the Depakote. The patient has subtherapeutic doses at a dosage of Depakote 500 mg twice a day. We discussed weaning him off of it. The patient was agreeable with this. He had no adverse consequences to weaning off the Depakote. His appetite remained good. He slept well at night with the psychotropics. No signs of agitation. The patient's substance use was addressed. He was willing to work with outpatient chemical dependency program and to followup with mental health counselor and provider. He will be staying with his mother. We will monitor his medication compliance upon discharge. Staff at the community clinic will request that he get a second dosage of Invega Sustena at the time of discharge. The patient is still on the Risperdal oral dose 2 mg three times a day, most likely can be weaned off. However, the patient was resistant to reducing the Risperdal. He claims that he likes to take it on a three times a day schedule. This will be addressed by his outpatient provider. MENTAL STATUS EXAMINATION: At the time of discharge, affect appeared improved. He was still guarded, but he had better eye contact. He denied hearing voices, but did appear to be responding to internal stimuli at times. Insight and judgment were fair. No signs of depression at the time of discharge. No signs of vivian. No sign of organic deficits. Grooming and hygiene are marginal. ASSESSMENT: The patient appears to have reached maximal hospital benefit. As mentioned above, his oral Risperdal dose can likely be reduced rapidly given the fact that he has gotten a second loading dose of the Invega Sustena. The patient clearly is tolerating the Risperdal/Invega combination well. No signs of extrapyramidal side effects, dystonia, etc. PLAN: Discharge today to live with his mother, who will be monitoring his outpatient treatment compliance.
== END 2016-03-09 14:40 | disposition home or self-care (01) | DRG 750 ==
LOC: M ED 11:28 → M PSY 20:42
PROVIDERS: ADMIT Psychiatry & Neurology Psychiatry; ATTEND Psychiatry & Neurology Psychiatry
DX: F25.0 Schizoaffective disorder, bipolar type (principal); F10.10 Alcohol abuse, uncomplicated; F15.90 Other stimulant use, unspecified, uncomplicated; Z79.899 Other long term (current) drug therapy; F17.200 Nicotine dependence, unspecified, uncomplicated

== ENCOUNTER 2016-04-01 17:32 | Inpatient (IN) | payer OTHER ==
[~2016-04-01] VITALS: Ht 172.7 cm; Wt 88.0 kg
[~2016-04-01 17:32] MED LIST changes: +DEPA1TAB3 PO; +FLUO20CA9 PO; +INVE234I IM; +NICO21DI5 TD; +RISP2TAB30 PO; +TRAZ10TA PO
[2016-04-01 18:28] LABS: MEAN CORPUSCULAR HEMOGLOBIN 31.1 pg (27.0-33.0); MEAN CORPUSCULAR HGB CONC 34.5 g/dl (32.0-36.5); MEAN CORPUSCULAR VOLUME 90.4 fl (80.0-96.0); RED CELL DISTRIBUTION WIDTH 12.9 % (11.5-14.5); WHITE BLOOD COUNT 7.7 K/mm3 (4.0-10.0)
[2016-04-01 18:35] LABS: AMPHETAMINES LEVEL URINE NEGATIVE (NEGATIVE); BENZODIAZEPINES URINE NEGATIVE (NEGATIVE); COCAINE METABOLITE URINE NEGATIVE (NEGATIVE); CONTROL LINE INT CTR LINE PRESENT; METHADONE URINE NEGATIVE (NEGATIVE); OPIATES URINE NEGATIVE (NEGATIVE); TRICYCLIC ANTIDEPRESS URINE NEGATIVE (NEGATIVE)
[2016-04-01 19:08] LABS: ALBUMIN 3.5 GM/DL (3.2-5.2); ALBUMIN/GLOBULIN RATIO 1.03 (1.00-1.93); ALKALINE PHOSPHATASE 64 U/L (45-117); ALT/SGPT 42 U/L (12-78); ANION GAP 8 MEQ/L (8-16); AST/SGOT 18 U/L (15-37); BILIRUBIN,DIRECT < 0.1 MG/DL (0.0-0.2); BILIRUBIN,TOTAL 0.2 MG/DL (0.2-1.0); BLOOD UREA NITROGEN 8 MG/DL (7-18); CALCIUM LEVEL 8.7 MG/DL (8.5-10.1); CARBON DIOXIDE LEVEL 27 MEQ/L (21-32); CHLORIDE LEVEL 103 MEQ/L (98-107); CREATININE FOR GFR 0.98 MG/DL (0.70-1.30); GLOMERULAR FILTRATION RATE > 60.0 (>60); GLUCOSE, FASTING 176 MG/DL (70-105); POTASSIUM SERUM 3.8 MEQ/L (3.5-5.1); SODIUM LEVEL 138 MEQ/L (136-145); TOTAL PROTEIN 6.9 GM/DL (6.4-8.2)
[2016-04-01] MEDS ORDERED: MAALOX 30 ML SUSP *UDC PO PRN (21:00)
[2016-04-01] MEDS ORDERED: MOM 30ML SUSPENSION UDC PO PRN (21:00)
[2016-04-01] MEDS ORDERED: OLANZapine 5 MG TAB PO PRN (21:00)
[2016-04-01] MEDS ORDERED: DIVALPROEX 500MG *ER* TAB PO SCH (21:00)
--- NOTE | 2016-04-01 22:47 | EDDOCDS ---
Physician Documentation [facility] Name: Ivan Hirsch Age: 26 yrs Sex: Male : 1990 Arrival Date: 04/01/2016 Time: 17:32 Bed [facility] Private MD: [facility] Disposition: 04/01/16 22:47 Hospitalization ordered by Sagar Sanders for Inpatient Admission. Preliminary diagnosis is Schizophrenia, unspecified. - Bed requested for Admit. - Status is Inpatient Admission. mar - Condition is Stable. - Problem is chronic. - Symptoms have improved. Historical: - Allergies: no known allergies; - Home Meds: 1. Depakote 500 mg Oral TbEC 2 tabs nightly 2. Invega Sustenna intramuscular monthly, per mother due on Apr 06 3. Prozac 20 mg Oral cap 1 cap once daily 4. Risperdal 2 mg Oral tab 1 tab three times a day - PMHx: Schizophrenia; - PSHx: Cholecystectomy; - Social history: Smoking status: Patient uses tobacco products, current every day smoker. No barriers to communication noted, The patient speaks fluent Spanish. - Family history: Not pertinent. - : The pt / caregiver states he / she is not on anticoagulants. Home medication list is obtained from the patient, [employer] import data. - Exposure Risk Screening:: None identified. Vital Signs: 04/01 17:33 BP 175 / 94; Pulse 88; Resp 18; Temp 96.6; Pulse Ox 98% ; Weight 84.82 kg / 187 lbs; elp Height 5 ft. 8 in. (172.72 cm); Pain 0/10; 19:01 BP 153 / 91; Pulse 73; Resp 18; Temp 96.8(O); Pulse Ox 98% on R/A; Pain 0/10; ld5 22:27 BP 142 / 88; Pulse 59; Resp 18; Temp 98.8(TE); Pulse Ox 99% on R/A; Pain 0/10; taylor 17:33 Body Mass Index 28.43 (84.82 kg, 172.72 cm) elp MDM: 17:53 Consult PFS/PSA/Counter Manager ordered. sd1 17:53 Consult PFS/PSA/Counter Manager: Patient's case requires discussion with on-call sd1 Psychiatrist ordered. 17:53 PSA/PFS to call Nursing Wine Cellar Stock Clerk, to enter patient data on [place] Safe [place] if patient sd1 involuntarily admitted or transferred for SI or HI ordered. 17:53 Confirm accurate psychiatric medication list and times of last dosage ordered. sd1 17:53 Detain Pt Until Medically/PFS Cleared ordered. sd1 17:53 Acetaminophen Level Ordered. EDMS 17:53 Basic Metabolic Profile Ordered. EDMS 17:53 Complete Blood Count Ordered. EDMS 17:53 Drug Eval Toxicology ED Only Ordered. EDMS 17:53 Ethyl Alcohol (ethanol) Ordered. EDMS 17:53 Liver Profile Ordered. EDMS 17:53 Salicylate Level Ordered. EDMS 17:53 Thyroid Stimulating Hormone Ordered. EDMS 18:21 REGULAR DIET PLASTIC RUIZ+DIET ordered. EDMS 21:05 Consult PFS/PSA/Counter Manager: Patient's case requires discussion with on-call [facility] Psychiatrist complete. 21:06 Consult PFS/PSA/Counter Manager complete. jfb 21:06 PSA/PFS to call Nursing Wine Cellar Stock Clerk, to enter patient data [place] Safe [place] if patient jfb involuntarily admitted or transferred for SI or HI complete. 21:47 Admit to IMHU: ordered. EDMS 21:48 REGULAR DIET ordered. EDMS 21:55 [facility] Legal paperwork was scanned into [employer] and attached to record. jl Signatures: Dispatcher [employer] EDNC Sultana Hargrove MD MD sd1 Odette Ha, RN RN Robbie Mosqueda, PSA PSA Sabra Campbell, PSA PSA Mary Mccain,RN RN [email or web address] Al Chase, DO DO [id number] MTDD
--- NOTE | 2016-04-01 22:47 | EDDOCDS ---
Nurse's Notes [facility] Name: Ivan Hirsch Age: 26 yrs Sex: Male : 1990 Arrival Date: 04/01/2016 Time: 17:32 Bed BHU5 Private MD: [facility] Diagnosis: Schizophrenia, unspecified Presentation: 04/01 17:49 Presenting complaint: Patient states: "It's my schizophrenia. I'm just not feeling ld5 well." Pt denies SI/HI. Upon assessment, pt repeatedly states "I'm alright. I'm okay" no matter the question asked of him. Suicide/Homicide risk assessment- the patient denies having any suicidal and/or homicidal ideations and does not present with any other emotional, behavioral or mental health complaints. Status: Patient is not a inpatient services rn or dependent. Transition of care: patient was not received from another setting of care. 17:49 Acuity: PHILIP Level 3 ld5 17:49 Method Of Arrival: Walkin/Carried/Asstd ld5 18:02 Presenting complaint: Mother states: Pt was at appointment with Heidi Mina and it ld5 was suggested that pt come to ER for evaluation due to increased agitation. Mother reports pt was admitted a month ago. Upon discharge, pt continued with auditory and visual hallucinations. Mother reports pt paces around the house for most of the day having conversations with people that are not there. Mother denies pt has been using drugs but reports pt has been walking to the store after she falls asleep to get alcohol, despite warnings from providers not to use alcohol with him medications. 18:07 Mental Health Triage Level: Level 2: Pt agitated in Heidi Mina's office prior to ER ld5 arrival. Pt experiencing auditory hallucinations. Adult Sepsis Screening: Patient has new or worsening altered mentation (1 point). Patient's respiratory rate is less than 22. Systolic blood pressure is greater than 100. Patient has a qSOFA score of 1- Negative Sepsis Screen. Triage Assessment: 18:09 General: Appears in no apparent distress. Pain: Denies pain. HIV screening NA for this ld5 visit Offered previously. Neurological: Level of Consciousness is awake, obeys commands. Respiratory: Airway is patent Respiratory effort is even, unlabored, Breath sounds are clear bilaterally. GI: Abdomen is non- distended Denies nausea, vomiting. Derm: Skin is intact, Skin is dry. Historical: - Allergies: no known allergies; - Home Meds: 1. Depakote 500 mg Oral TbEC 2 tabs nightly 2. Invega Sustenna intramuscular monthly, per mother due on Apr 06 3. Prozac 20 mg Oral cap 1 cap once daily 4. Risperdal 2 mg Oral tab 1 tab three times a day - PMHx: Schizophrenia; - PSHx: Cholecystectomy; - Social history: Smoking status: Patient uses tobacco products, current every day smoker. No barriers to communication noted, The patient speaks fluent Divehi. - Family history: Not pertinent. - : The pt / caregiver states he / she is not on anticoagulants. Home medication list is obtained from the patient, [employer] import data. - Exposure Risk Screening:: None identified. Screenin:30 Screening information is obtained from the patient, the parent, prior medical records. ld5 Fall risk: No risks identified. Assistance ADL's: requires no assistance with activities of daily living. Abuse/DV Screen: The patient / caregiver reports he/she is: not in a situation that causes fear, pain or injury. Nutritional screening: No deficits noted. Advance Directives: There is no active DNR order. home support is adequate. Assessment: 18:30 General: Pt laying in bed. Dinner tray provided. Will continue to monitor. ld5 19:01 General: Pt reports eating some of dinner tray but says he is finished. Pt currently ld5 laying quietly in bed. Blankets provided. Mother at bedside. Will continue to monitor. 20:00 General: Appears in no apparent distress, comfortable, Behavior is pleasant, resting on rw1 stretcher with eyes closed, safety maintained. Respiratory: Airway is patent Respiratory effort is even, unlabored. Derm: Skin is pink, warm & dry. normal. 21:01 Reassessment: Patient appears in no apparent distress at this time. resting on rw1 stretcher with eyes closed, safety maintained will monitor.. 22:00 General: Appears in no apparent distress, comfortable, Behavior is cooperative, juanita pleasant. Neurological: Level of Consciousness is awake, alert, obeys commands, Oriented to person, place, time, Speech is normal. Respiratory: No deficits noted. Airway is patent Respiratory effort is even, unlabored, Respiratory pattern is regular, symmetrical. Derm: Skin is pink, warm & dry. Mental Health Eval: 20:18 Status: The patient is not a inpatient services rn or dependent. [facility]: The patient is not an established patient of [facility]. Referral Information: Evaluation referral is generated by HENRRY Zapata via [facility]. The patient was referred for evaluation because PT is experiencing Auditory Hallucinations and is manic. Subjective: Subjective: The patients chief complaint is PT was discharged from [facility] 03/09/2016 to his mother where he is living temporarily after he decided to move from his subsidized apartment after he was spoken too about his behavior. Mother states that PT did well for a day or two but then began becoming irritable and paces constantly . He then began to respond to internal stimuli and one morning she heard what she thought was an argument between PT and his 25 year old brother but when she went to intervene PT was alone. The brother is hesitant to be alone with PT at this time. Mother states PT is safe in her home but that she herself does not feel safe "I have never seen him like this before. He is constantly irritated and talking to himself" Mother has heard PT talk to "Kennedy" and ask hi why he is inside of his body. PT by hx is considered a calm individual but when he is not doing well mother will see the listed behaviors. PT states his medication are not working and that he is here for admission to address this. He is denying AH but had moments of staring off and pausing indicating internal stimuli. PT denies SI/HI at this time. . Delusions are denied. Patient's mood is irritable, Auditory Hallucinations are suspected. 20:31 Mental Health history: alcohol abuse, abusing cocaine. crack cocaine. methamphetamine. jfb paranoia, schizophrenia, sleep disturbance, Mental Health Admissions: PT has had multiple admissions throughout his life with the most recent 02/2016 Current Outpatient Mental Health Services: Psychiatrist / Agency: [facility]. Therapist / Agency: [facility] Richards. Drawer Fitter / Agency: [facility] Doan. Current living environment is The patient currently lives with his / her mother, . Patient presents to Emergency Department with the following symptoms within the past 2 weeks: agitation, alcohol abuse, auditory hallucinations mother and providers hyperactivity, labile mood, paranoia, psychosis, sleep disturbance - insomnia. Substance abuse: Patient uses Mother states PT has a payee via DSS and when he is given money he walks to the store after she goes to bed to buy alcohol Patient uses tobacco 2 packs Frequency daily. Mental status exam: Patients appearance is appropriate, Patient's behavior is cooperative, minimally responsive Speech is normal. Affect is flat. Mood is depressed. Auditory Hallucinations are suspected. Appetite is normal. Memory is good. Energy level is hyperactive. Content of thought is paranoid. in regards to many areas to include having someone in his body Thought process is loose. Cognitive level is Oriented to person, place, situation Patient's insight is poor. Judgement is poor. Rapport with interviewer is good. Suicidal Ideation is not present. Homicidal ideation is not present. Disposition: Medically cleared for disposition by Al Chase DO Psychiatric Consult is performed by phone with Dr Sagar Sanders MD. [facility] Admission Criteria: The patient displays symptoms of severe psychiatric disorder resulting in disordered behavior and significant interference with his / her ability to maintain self care. Hallucinations. Delusions. The patient requires continuous observation and/or control to protect self, others or property. The patient's care requires a multi-modal treatment plan under close supervision and coordination due to the complexity and severity of the patient's symptoms. The patient requires administration and monitoring of psychoactive medications by skilled medical providers due to the side effects of the psychoactive medications or significant dosage adjustments. Legal Status: Patient's legal status will be Emergency admission: . [place] because the patient does not display any suicidal or homicidal ideations and does not pose a risk to self or others. DSM-V Differential Diagnosis: Schizophrenia (F20.9). Awaiting: transfer to [facility]. Vital Signs: 17:33 BP 175 / 94; Pulse 88; Resp 18; Temp 96.6; Pulse Ox 98% ; Weight 84.82 kg; Height 5 ft. elp 8 in. (172.72 cm); Pain 0/10; 19:01 BP 153 / 91; Pulse 73; Resp 18; Temp 96.8(O); Pulse Ox 98% on R/A; Pain 0/10; ld5 22:27 BP 142 / 88; Pulse 59; Resp 18; Temp 98.8(TE); Pulse Ox 99% on R/A; Pain 0/10; taylor 17:33 Body Mass Index 28.43 (84.82 kg, 172.72 cm) elp Vitals: 17:33 Log In Time: April 01, 2016 at 17:30. RN notified that patient meets Red Flag elp criteria. ED Course: 17:32 Patient visited by Julieta Galloway PCA. elp 17:32 Patient moved to Waiting elp 17:33 [facility] is Private Physician. elp 17:33 Patient visited by Julieta Galloway PCA. elp 17:36 Patient moved to Pre RCE elp 17:48 Patient moved to [facility] dpm 17:51 Triage Initiated ld5 17:55 Sultana Hargrove MD is Attending Physician. sd1 17:55 Patient visited by Sultana Hargrove MD. sd1 17:55 Pt greeted and oriented to ED. Patient advised of names of staff involved in care, dpm location of call smith, wait times and NPO status. Patient has correct armband on for positive identification. Placed in gown. Placed in psych safe attire. Security observing. Property removed, inventory done, secured in belongings bag- placed in locked locker. Placed in locker 5. Psych Safety Check: Location: Psych Room. Visual Assessment: Cooperative. 17:59 Patient visited by Harish Nguyen. dpm 18:10 Patient visited by Mary Carrasquillo,ADAL. ld5 18:19 Patient visited by Mary Carrasquillo,ADAL. ld5 18:19 Acetaminophen Level Sent. ld5 18:19 Basic Metabolic Profile Sent. ld5 18:19 Complete Blood Count Sent. ld5 18:19 Drug Eval Toxicology ED Only Sent. ld5 18:19 Ethyl Alcohol (ethanol) Sent. ld5 18:19 Liver Profile Sent. ld5 18:19 Salicylate Level Sent. ld5 18:19 Thyroid Stimulating Hormone Sent. ld5 18:21 Patient visited by Harish Nguyen. dpm 18:30 The patient / caregiver is instructed regarding the plan of care and ED course. ld5 18:30 No IV's were initiated during this patient's visit. No procedures done that require ld5 assistance. Labs drawn. (by ED staff). Sent per order to lab. Urine collected. Clean catch specimen. Urine specimen sent to lab. 18:31 Patient visited by Mary Carrasquillo RN. ld5 18:44 Patient visited by Harish Nguyen. dpm 19:01 Patient visited by Harish Nguyen. dpm 19:02 Patient visited by Mary Carrasquillo RN. ld5 19:11 CesarokMckinley LPN is Primary Nurse. rw1 19:16 Patient visited by Harish Nguyen. dpm 19:36 Patient visited by Choco Mireles. tr 19:46 Patient visited by Choco Mireles. tr 19:50 Attending Physician role handed off by Sultana Hargrove MD cs11 19:50 Al Chase DO is Attending Physician. cs11 20:00 Patient visited by Choco Mireles. tr 20:15 Patient visited by Choco Mireles. tr 20:28 Patient visited by Choco Mireles. tr 20:48 Patient visited by Choco Mireles. tr 21:05 Patient visited by Choco Mireles. tr 21:29 Patient visited by Choco Mireles. tr 21:46 Patient visited by Choco Mireles. tr 21:55 [facility] Legal paperwork was scanned into [employer] and attached to record. jl 21:58 Patient visited by Choco Mireles. tr 22:27 Patient visited by Casi Camacho PCA. taylor 22:34 Patient visited by Choco Mireles. tr 22:44 Patient visited by Choco Mireles. tr 22:46 Sagar Sanders MD is Hospitalizing Provider. cs11 Attachments: 21:55 [facility] Legal paperwork jl Order Results: Lab Order: Acetaminophen Level; SPEC'M 04/01/16 18:13 Test: ACETAMINOPHEN LEVEL; Value: < 2.0; Range: 10.0-30.0; Abnormal: Below low normal; Units: UG/ML; Status: F Lab Order: Basic Metabolic Profile; SPEC'M 04/01/16 18:13 Test: GLUCOSE, FASTING; Value: 176; Range: 70-105; Abnormal: Above high normal; Units: MG/DL; Status: F Test: BLOOD UREA NITROGEN; Value: 8; Range: 7-18; Units: MG/DL; Status: F Test: CREATININE FOR GFR; Value: 0.98; Range: 0.70-1.30; Units: MG/DL; Status: F Test: GLOMERULAR FILTRATION RATE; Value: > 60.0; Range: >60; Status: F Test: SODIUM LEVEL; Value: 138; Range: 136-145; Units: MEQ/L; Status: F Test: POTASSIUM SERUM; Value: 3.8; Range: 3.5-5.1; Units: MEQ/L; Status: F Test: CHLORIDE LEVEL; Value: 103; Range: 98-107; Units: MEQ/L; Status: F Test: CARBON DIOXIDE LEVEL; Value: 27; Range: 21-32; Units: MEQ/L; Status: F Test: ANION GAP; Value: 8; Range: 8-16; Units: MEQ/L; Status: F Test: CALCIUM LEVEL; Value: 8.7; Range: 8.5-10.1; Units: MG/DL; Status: F Test Note: ; Units are mL/min/1.73 m2 Chronic Kidney Disease Staging per NKF: Stage I & II GFR >=60 Normal to Mildly Decreased Stage III GFR 30-59 Moderately Decreased Stage IV GFR 15-29 Severely Decreased Stage V GFR <15 Very Little GFR Left ESRD GFR <15 on SHEET [employer] INSTALLATION HELPER Lab Order: Complete Blood Count; SPEC'M 04/01/16 18:13 Test: WHITE BLOOD COUNT; Value: 7.7; Range: 4.0-10.0; Units: K/mm3; Status: F Test: RED BLOOD COUNT; Value: 4.40; Range: 4.30-6.10; Units: M/mm3; Status: F Test: HEMOGLOBIN; Value: 13.7; Range: 14.0-18.0; Abnormal: Below low normal; Units: g/dl; Status: F Test: HEMATOCRIT; Value: 39.7; Range: 42.0-52.0; Abnormal: Below low normal; Units: %; Status: F Test: MEAN CORPUSCULAR VOLUME; Value: 90.4; Range: 80.0-96.0; Units: fl; Status: F Test: MEAN CORPUSCULAR HEMOGLOBIN; Value: 31.1; Range: 27.0-33.0; Units: pg; Status: F Test: MEAN CORPUSCULAR HGB CONC; Value: 34.5; Range: 32.0-36.5; Units: g/dl; Status: F Test: RED CELL DISTRIBUTION WIDTH; Value: 12.9; Range: 11.5-14.5; Units: %; Status: F Test: PLATELET COUNT, AUTOMATED; Value: 277; Range: 150-450; Units: k/mm3; Status: F Lab Order: Drug Eval Toxicology ED Only; SPEC'M 04/01/16 18:14 Test: AMPHETAMINES LEVEL URINE; Value: NEGATIVE; Range: NEGATIVE; Status: F Test: BARBITURATES URINE; Value: NEGATIVE; Range: NEGATIVE; Status: F Test: BENZODIAZEPINES URINE; Value: NEGATIVE; Range: NEGATIVE; Status: F Test: CANNABINOIDS URINE; Value: NEGATIVE; Range: NEGATIVE; Status: F Test: COCAINE METABOLITE URINE; Value: NEGATIVE; Range: NEGATIVE; Status: F Test: METHADONE URINE; Value: NEGATIVE; Range: NEGATIVE; Status: F Test: OPIATES URINE; Value: NEGATIVE; Range: NEGATIVE; Status: F Test: TRICYCLIC ANTIDEPRESS URINE; Value: NEGATIVE; Range: NEGATIVE; Status: F Test Note: ; ALL PRESUMPTIVE POSITIVE FINDINGS ARE UNCONFIRMED NORMAL VALUES THRESHOLD IN NG/ML AMPHETAMINES 1000 METHAMPHETAMINES 1000 BARBITURATES 300 BENZODIAZEPINES 300 CANNABINOIDS (THC) 50 COCAINE METABOLITE 300 METHADONE 300 OPIATES 300 PHENCYCLIDINE 25 TRICYCLIC ANTIDEPRESSANTS 1000 RESULTS ARE FOR MEDICAL PURPOSES ONLY. ALL URINE SPECIMENS WILL BE SAVED FOR 3 DAYS. IF CONFIRMATION OF A PRESUMPTIVE POSTIVE SCREEN RESULT IS DESIRED, CALL CHEMISTRY ([phone]) AND REQUEST URINE TO BE SENT TO REFERENCE LAB. FOR A LIST OF CLOSELY RELATED COMPOUNDS PLEASE CALL THE LAB. Lab Order: Ethyl Alcohol (ethanol); SPEC'M 04/01/16 18:13 Test: ETHYL ALCOHOL (ETHANOL); Value: 0.003; Range: 0.000-0.010; Units: %; Status: F Lab Order: Liver Profile; SPEC'M 04/01/16 18:13 Test: AST/SGOT; Value: 18; Range: 15-37; Units: U/L; Status: F Test: ALT/SGPT; Value: 42; Range: 12-78; Units: U/L; Status: F Test: ALKALINE PHOSPHATASE; Value: 64; Range: 45-117; Units: U/L; Status: F Test: BILIRUBIN,TOTAL; Value: 0.2; Range: 0.2-1.0; Units: MG/DL; Status: F Test: BILIRUBIN,DIRECT; Value: < 0.1; Range: 0.0-0.2; Units: MG/DL; Status: F Test: TOTAL PROTEIN; Value: 6.9; Range: 6.4-8.2; Units: GM/DL; Status: F Test: ALBUMIN; Value: 3.5; Range: 3.2-5.2; Units: GM/DL; Status: F Test: ALBUMIN/GLOBULIN RATIO; Value: 1.03; Range: 1.00-1.93; Status: F Lab Order: Salicylate Level; SPEC'M 04/01/16 18:13 Test: SALICYLATE LEVEL; Value: 4.1; Range: 5.0-30.0; Abnormal: Below low normal; Units: MG/DL; Status: F Lab Order: Thyroid Stimulating Hormone; SPEC'M 04/01/16 18:13 Test: THYROID STIMULATING HORMONE; Value: 1.160; Range: 0.358-3.740; Units: uIU/ML; Status: F Outcome: 22:38 Discharge Assessment: Patient awake, alert and oriented x 3. No cognitive and/or juanita functional deficits noted. Patient verbalized understanding of disposition instructions. patient administered narcotics - no. The following High Risk Discharge criteria are identified: None. Admitted to Psych accompanied by tech, via wheelchair, with chart. Condition: stable. No special radiology studies were completed. 22:47 Decision to Hospitalize by Provider. cs11 22:47 Patient left the ED. juanita Signatures: Sultana Hargrove MD MD sd1 Odette Ha, RN RN Robbie Mosqueda, PSA PSA Choco Allison Robert, LPN COURTESY VAN DRIVER rw1 Sabra Elias PSA PSA Mary Mccain,RN RN ld5 Casi Camacho, SANDBLASTING SUPERVISOR SANDBLASTING SUPERVISOR Harish Lord dpAl Soler, DO cs11 Julieta Galloway, SANDBLASTING SUPERVISOR SANDBLASTING SUPERVISOR elp Corrections: (The following items were deleted from the chart) 20:56 20:18 Subjective: lazara haile MTDD
[2016-04-01] MEDS ORDERED: RISP2TAB3 PO (22:50)
[2016-04-01] MEDS ORDERED: PROZ20CA11 PO (22:50)
[2016-04-01 23:35] VITALS: BP 137/96
[2016-04-02] MEDS: risperiDONE 2 MG TAB PO SCH ×3 (01:28→21:14)
[2016-04-02] MEDS: QUEtiapine FUMARATE 100 MG TAB PO PRN ×2 (01:28→21:14)
[2016-04-02] MEDS: NICOTINE 21MG/24HR 1 EA TRANSDERMAL TD SCH (09:45)
--- NOTE | 2016-04-02 10:48 | HPEPDOC ---
Medical History and Physical Date of Admission Apr 01, 2016 at 23:11 History and Physical PCP: [facility] ATTENDING: Dr. Bandar Miranda HPI: 26yoM admitted to [facility] for Schizoprenia, being medically examined today. No acute medical complaints today. Denies any fevers, chills, weakness, fatigue , HULL, CP, SOB, cough, palpitations, abdominal pain, N/V/D or changes in bowel or bladder habits. PMHx: Schizophrenia MRI Brain 12/17 No intracranial lesion Poor dentition Tobacco use PSHX: Cholecystectomy SOCHX: Resides in: [place] Marital Status: Single Kids: None Employment: Unemployed Tobacco use: One pack per day ETOH: 6 drinks per week Illicit Drugs: States used cocaine 1 month ago. Has used mushrooms, marijuana, and ecstasy in the past. IV Drug Use: Denies Tattoos done unprofessionally: Denies FAMHX: Mother: Alive, well Father: Alive, diabetes Siblings: One brother, one sister Alive, well Children: None Unexpected deaths due to medical reasons: None. ROS: As noted in HPI, otherwise 11pt ROS of systems reviewed and remarkable only for poor dentition. He denies any current dental pain. He has not seen a dentist recently. PE: GEN: 25 yo M, appears stated age. Well-nourished, well developed. No acute distress. Alert and oriented x 3. Seems guarded and slow to answer questions. HEENT: Normocephalic, atraumatic. Pupils are equal, round, and reactive to light. Extraocular movements are intact. No nystagmus appreciated. Sclera are nonicteric. Conjunctiva without injection. Nose midline. Nasal turbinates without bogginess. EACs both patent BL. TMs both visualized and st with good cone of light, no bulging or erythema. No facial asymmetry. Moist mucous membranes. Dentition poor. Pharynx pink and moist, no cobblestoning. Neck supple , trachea midline. No lymphadenopathy or thyromegaly appreciated. CHEST: Regular rate and rhythm, +S1, +S2 LUNGS: Clear to auscultation bilaterally. No wheezes, rales, or rhonchi. Breathing appears symmetric and easy. Patient is speaking in full sentences. No accessory muscle use. ABD: Round, soft, non-tender, non-distended. +Bowel sounds throughout. No rebound or guarding. No costovertebral angle tenderness. EXT: Pulses 2+ bilaterally dorsalis pedis and radial. No lower extremity edema appreciated. SKIN: [place], dry, warm. Capillary refill <2sec. No rashes. NEURO: Alert and oriented x 3. Cranial nerves III-XII are intact. No focal deficits appreciated. EK02/27/16 SINUS RHYTHM NORMAL A&P: 26yoM admitted to [facility] for unspecified psychosis 1. Psych. Plan per Psychiatry. EKG on file. 2. Nicotine dependence. Patch available. 3. Poor dentition. Patient denies any current dental concerns. No dental pain. Eating and drinking without any difficulty. Will try to establish with a dentist at discharge. 4. Follow up. No Primary Care Provider. Will attempt to establish PCP on discharge. 5. Accompanied throughout exam by staff member adryan Arthur. Vital Signs Vital Signs Label Value Date Time Patient Temperature 98.6 degrees F 04/01/162334 Temperature Source Tympanic 04/01/162334 Pulse 81 04/01/162334 Respiratory Rate 20 bpm 04/01/162334 Blood Pressure Assessment 137/96 (110) 04/01/162334 Bedside Pulse Oximetry 96 % 04/01/162334 Item Value Date Time Oxygen Delivery Method Room Air 04/01/162334 Laboratory Data Labs 24H Laboratory Tests 2 04/01/16 18:13: Acetaminophen Level < 2.0L, Aspartate Amino Transf (AST/SGOT) 18, Alanine Aminotransferase (ALT/SGPT) 42, Alkaline Phosphatase 64, Total Bilirubin 0.2, Direct Bilirubin < 0.1, Albumin 3.5, Albumin/Globulin Ratio 1.03, Anion Gap 8, Calcium Level 8.7, Ethyl Alcohol Level 0.003, Glomerular Filtration Rate > 60.0 , Salicylates Level 4.1L, Thyroid Stimulating Hormone (TSH) 1.160, Total Protein 6.9 04/01/16 18:14: Urine Amphetamine Level NEGATIVE, Urine Benzodiazepines Screen NEGATIVE, Urine Cannabinoids NEGATIVE, Urine Cocaine Metabolite NEGATIVE, Urine Opiates Screen NEGATIVE, Urine Barbiturates, Qualitative NEGATIVE, Urine Methadone Screen NEGATIVE, Urine Tricyclic Antidepressants NEGATIVE CBC/BMP Laboratory Tests 04/01/16 18:13 Red Blood Count 4.40, Mean Corpuscular Volume 90.4, Mean Corpuscular Hemoglobin 31.1, Mean Corpuscular Hemoglobin Concent 34.5, Red Cell Distribution Width 12.9 Home Medications Scheduled (Risperidone) 2 Mg Tab 2 MG PO TID Fluoxetine HCl (Prozac) 20 Mg Cap 20 MG PO DAILY Paliperidone Palmitate (Invega Sustenna) 234 Mg/1.5 Ml Inj 234 MG IM QMONTH DUE ON 04/06/16 PER MOTHER Allergies Coded Allergies: POLLEN (Verified Allergy, Unknown, 02/15/12) Paris Yarbrough Apr 02, 2016 10:48
--- NOTE | 2016-04-02 15:42 | HPE ---
DATE OF ADMISSION: 04/02/2016 LEGAL STATUS AT ADMISSION: 9.39 legal status. CHIEF COMPLAINT: "I have this in my back that is draining out my energy." HISTORY OF PRESENT ILLNESS: A 26-year-old male with history of schizophrenia and also schizoaffective disorder, bipolar type, alcohol and polysubstance dependency, including crack, cocaine, Zita, and methamphetamines, admitted to our unit of a 9.39 legal status. According to the chart, patient was referred to our emergency department by therapist at the outpatient clinic. It is reported that he was experiencing auditory hallucinations. Patient was discharged from our unit on 03/09/2016. His mother said that he was living with her temporarily. Said that he was stable for only a few days and started again experiencing psychotic symptoms. He became more irritable, pacing constantly, responding to internal stimuli. Mother says that one morning she heard that he was having an argument with his brother, but she went to the room and he was alone. Mother also says that she is hesitant to be alone with the patient at this time. She is afraid of him. She believes that the medication is not working. Apparently, the patient has been compliant in taking Invega Sustenna intramuscular (IM) shots every 4 weeks, 234 mg, in addition to Risperdal 2 mg by mouth three times a day. His mood was described as irritable and having auditory hallucinations. As stated above, patient has history of taking alcohol, crack cocaine, cocaine, and methamphetamines in the past, but patient during the interview says that he only drinks "a little alcohol." Not sure if patient is reliable. During the interview today, patient states that the voices are bothering him, but when he is asked about the specifics of the voices, he says that "I don't have voices," but "something is trying to communicate with me." I was not able to gather any other details. Patient also feels like "something in my back." When I ask for specifics, he mentions "I don't know." "Something that is alive and drains all my energy." Says that the above symptoms, the communication and these experiences of having something in his back, have been coming and going for about 1 year. Patient says that he has mood swings but defines his mood swings as first having normal mood, and then "my energy is drained." When he refers to being drained, it is the above symptoms he experienced, so it appears that his mood fluctuations are secondary to his symptoms of psychosis. He describes his appetite okay with the medication. No problems with his appetite. Reports his self-esteem doing fine. He may be minimizing the amount of alcohol or drugs that he is taking, but he denies at this point taking any. He is oriented times four, and his memory is fair. PAST PSYCHIATRIC HISTORY: Patient has a long history of multiple psychiatric hospitalizations. Last admission was in March 2016. Patient is followed at a [facility]. He has been taking Risperdal 2 mg by mouth three times a day and Invega Sustenna. Last dose was 2 weeks ago and took 156 mg IM. It is reported in the chart that he has poor compliance with the medication. Patient has been diagnosed with schizoaffective disorder, bipolar type, alcohol and polysubstance dependency, although he reports he has not been using lately except small amount of alcohol. PAST MEDICAL HISTORY: Pertinent for diabetes mellitus in the past. He was on metformin once, but now it is has been discontinued. FAMILY HISTORY: Patient denies any psychiatric family history. SOCIAL HISTORY: Patient was born in [place], but he has lived in [place] most of his life. He dropped out of school in 11th grade. Never got his GED. Has not been able to work. He is single, living with his mother. SUBSTANCE ABUSE HISTORY: As above, patient has history of polysubstance dependency, including cocaine, crack cocaine, Zita, and methamphetamines. Patient states that he self-medicates with alcohol when "my psychosis gets bad." REVIEW OF SYSTEMS: CONSTITUTIONAL: No weight loss, fever, chills, weakness, or fatigue. HEENT: No visual loss, blurry vision, double vision, or yellow sclerae. No hearing loss, nasal congestion, runny nose, or sore throat. SKIN: No rash or itching. CARDIOVASCULAR: No chest pain, chest pressure, chest discomfort, palpitations, or edema. RESPIRATORY: No shortness of breath, cough, or sputum. GASTROINTESTINAL: No anorexia, nausea, vomiting, or diarrhea. No abdominal pain or blood. GENITOURINARY: No burning or pain on urination. NEUROLOGIC: No headache, dizziness, syncope, paralysis, ataxia, numbness, or tingling. MUSCULOSKELETAL: No muscle, back pain, joint pain, or stiffness. HEMATOLOGIC: No anemia, bleeding, or bruising. LYMPHATICS: No history of a splenectomy. ENDOCRINOLOGIC: No reports of sweating, cold or heat intolerance. No polyuria or polydipsia. ALLERGIES: No history of asthma, hives, eczema, or rhinitis. PHYSICAL EXAMINATION: As per physician assistant child care teacher. LABORATORY DATA: CBC is unremarkable. CMP within normal limits. TSH within normal limits. UDS is negative. Blood alcohol level is negative. MENTAL STATUS EXAMINATION: Patient is dressed in [facility]. Patient is cooperative. His speech is slow and monotone. Has poor eye contact. Mood is slightly anxious. Affect is blunted. Patient is oriented to time, place, person, and situation. Maintains attention and concentration fairly. Instant recall, recent and remote memory are fair. Patient reports auditory hallucinations. No visual hallucinations. Patient has paranoid delusions. Denies suicidal or homicidal ideation. Judgment and insight are poor. DIAGNOSES: AXIS I: Schizoaffective disorder, bipolar type, substance-induced psychotic disorder, polysubstance dependency by history, alcohol dependency. AXIS II: Deferred. AXIS III: None acute. INITIAL TREATMENT PLAN: Patient was admitted on a 9.39 legal status. Complete history was obtained. With his permission, family will be contacted, and database will be expanded. His medication regimen will be reviewed and changed accordingly. He will be provided with protected environment. He will be treated with individual, group, and milieu therapies. He will also receive supportive psychoeducation. Discharge planning will commence immediately. Length of stay will be between 7-10 days. Outpatient followup will be strongly recommended. The treatment plan will focus initially on altered thoughts, altered perceptions, substance abuse.
[2016-04-02 18:12] VITALS: BP 122/78
[2016-04-03 06:24] VITALS: BP 105/57
[2016-04-03] MEDS: risperiDONE 2 MG TAB PO SCH ×2 (08:21→20:56)
[2016-04-03] MEDS: NICOTINE 21MG/24HR 1 EA TRANSDERMAL TD SCH (08:22)
[2016-04-03] MEDS ORDERED: INFLUENZA QUADRIVALENT PF VACCINE 0.5ML SYRINGE/VIAL (90686) IM SCH (09:00)
[2016-04-03 18:01] VITALS: BP 132/90
[2016-04-03] MEDS: QUEtiapine FUMARATE 100 MG TAB PO PRN (20:56)
--- NOTE | 2016-04-03 23:48 | EDDOCDS ---
Physician Documentation [facility] Name: Ivan Hirsch Age: 26 yrs Sex: Male : 1990 Arrival Date: 04/01/2016 Time: 17:32 Bed [facility] Private MD: [facility] Disposition: 04/01/16 22:47 Hospitalization ordered by Sagar Sanders for Inpatient Admission. Preliminary diagnosis is Schizophrenia, unspecified. - Bed requested for Admit. - Status is Inpatient Admission. mar - Condition is Stable. - Problem is chronic. - Symptoms have improved. Historical: - Allergies: no known allergies; - Home Meds: 1. Depakote 500 mg Oral TbEC 2 tabs nightly 2. Invega Sustenna intramuscular monthly, per mother due on Apr 06 3. Prozac 20 mg Oral cap 1 cap once daily 4. Risperdal 2 mg Oral tab 1 tab three times a day - PMHx: Schizophrenia; - PSHx: Cholecystectomy; - Social history: Smoking status: Patient uses tobacco products, current every day smoker. No barriers to communication noted, The patient speaks fluent Indonesian. - Family history: Not pertinent. - : The pt / caregiver states he / she is not on anticoagulants. Home medication list is obtained from the patient, [employer] import data. - Exposure Risk Screening:: None identified. Vital Signs: 04/01 17:33 BP 175 / 94; Pulse 88; Resp 18; Temp 96.6; Pulse Ox 98% ; Weight 84.82 kg / 187 lbs; elp Height 5 ft. 8 in. (172.72 cm); Pain 0/10; 19:01 BP 153 / 91; Pulse 73; Resp 18; Temp 96.8(O); Pulse Ox 98% on R/A; Pain 0/10; ld5 22:27 BP 142 / 88; Pulse 59; Resp 18; Temp 98.8(TE); Pulse Ox 99% on R/A; Pain 0/10; taylor 17:33 Body Mass Index 28.43 (84.82 kg, 172.72 cm) elp MDM: 17:53 Consult PFS/PSA/Supervisor [employer] ordered. sd1 17:53 Consult PFS/PSA/Supervisor [employer]: Patient's case requires discussion with on-call sd1 Psychiatrist ordered. 17:53 PSA/PFS to call Nursing Body Joiner, to enter patient data on [place] Safe [place] if patient sd1 involuntarily admitted or transferred for SI or HI ordered. 17:53 Confirm accurate psychiatric medication list and times of last dosage ordered. sd1 17:53 Detain Pt Until Medically/PFS Cleared ordered. sd1 17:53 Acetaminophen Level Ordered. EDMS 17:53 Basic Metabolic Profile Ordered. EDMS 17:53 Complete Blood Count Ordered. EDMS 17:53 Drug Eval Toxicology ED Only Ordered. EDMS 17:53 Ethyl Alcohol (ethanol) Ordered. EDMS 17:53 Liver Profile Ordered. EDMS 17:53 Salicylate Level Ordered. EDMS 17:53 Thyroid Stimulating Hormone Ordered. EDMS 18:21 REGULAR DIET PLASTIC RUIZ+DIET ordered. EDMS 21:05 Consult PFS/PSA/Supervisor [employer] Processing: Patient's case requires discussion [facility] complete. 21:06 Consult PFS/PSA/Supervisor [employer] Processing complete. b 21:06 PSA/PFS to call Nursing Body Joiner, to enter patient data [place] Safe [place] if patient jfb involuntarily admitted or transferred for SI or HI complete. 21:47 Admit to IM: ordered. EDMS 21:48 REGULAR DIET ordered. EDMS 21:55 [facility] Legal paperwork was scanned into [employer] and attached to record. 22:48 BED REQUEST+ADM ordered. EDMS 23:06 [facility] Payment Agreement was scanned into [employer] and attached to record. [facility] 23: Financial registration complete. [facility] 04/02 10:10 T-Sheet-- Draft Copy was scanned into [employer] and attached to record. gb Signatures: Dispatcher [employer] [facility] Sultana Hargrove MD MD sd1 Odette Ha, RN RN Robbie Mosqueda, PSA PSA Renetta Cruz, Reg Reg gb Sabra Elias, PSA PSA jfb Mary Carrasquillo,RN RN ld5 Al Chase DO DO [id number] Akiko Aguiar The chart was reviewed and I authenticate all verbal orders and agree with the evaluation and treatment provided.Attachments: 23:06 [facility] Payment Agreement [facility] 04/02 10:10 T-Sheet-- Draft Copy gb Chart Complete MTDD
--- NOTE | 2016-04-03 23:48 | EDDOCDS ---
Nurse's Notes [facility] Name: Ivan Hirsch Age: 26 yrs Sex: Male : 1990 Arrival Date: 04/01/2016 Time: 17:32 Bed BHU5 Private MD: [facility] Diagnosis: Schizophrenia, unspecified Presentation: 04/01 17:49 Presenting complaint: Patient states: "It's my schizophrenia. I'm just not feeling ld5 well." Pt denies SI/HI. Upon assessment, pt repeatedly states "I'm alright. I'm okay" no matter the question asked of him. Suicide/Homicide risk assessment- the patient denies having any suicidal and/or homicidal ideations and does not present with any other emotional, behavioral or mental health complaints. Status: Patient is not a compressor service technician or dependent. Transition of care: patient was not received from another setting of care. 17:49 Acuity: PHILIP Level 3 ld5 17:49 Method Of Arrival: Walkin/Carried/Asstd ld5 18:02 Presenting complaint: Mother states: Pt was at appointment with Heidi Mina and it ld5 was suggested that pt come to ER for evaluation due to increased agitation. Mother reports pt was admitted a month ago. Upon discharge, pt continued with auditory and visual hallucinations. Mother reports pt paces around the house for most of the day having conversations with people that are not there. Mother denies pt has been using drugs but reports pt has been walking to the store after she falls asleep to get alcohol, despite warnings from providers not to use alcohol with him medications. 18:07 Mental Health Triage Level: Level 2: Pt agitated in Heidi Mina's office prior to ER ld5 arrival. Pt experiencing auditory hallucinations. Adult Sepsis Screening: Patient has new or worsening altered mentation (1 point). Patient's respiratory rate is less than 22. Systolic blood pressure is greater than 100. Patient has a qSOFA score of 1- Negative Sepsis Screen. Triage Assessment: 18:09 General: Appears in no apparent distress. Pain: Denies pain. HIV screening NA for this ld5 visit Offered previously. Neurological: Level of Consciousness is awake, obeys commands. Respiratory: Airway is patent Respiratory effort is even, unlabored, Breath sounds are clear bilaterally. GI: Abdomen is non- distended Denies nausea, vomiting. Derm: Skin is intact, Skin is dry. Historical: - Allergies: no known allergies; - Home Meds: 1. Depakote 500 mg Oral TbEC 2 tabs nightly 2. Invega Sustenna intramuscular monthly, per mother due on Apr 06 3. Prozac 20 mg Oral cap 1 cap once daily 4. Risperdal 2 mg Oral tab 1 tab three times a day - PMHx: Schizophrenia; - PSHx: Cholecystectomy; - Social history: Smoking status: Patient uses tobacco products, current every day smoker. No barriers to communication noted, The patient speaks fluent Mongolian. - Family history: Not pertinent. - : The pt / caregiver states he / she is not on anticoagulants. Home medication list is obtained from the patient, [employer] import data. - Exposure Risk Screening:: None identified. Screenin:30 Screening information is obtained from the patient, the parent, prior medical records. ld5 Fall risk: No risks identified. Assistance ADL's: requires no assistance with activities of daily living. Abuse/DV Screen: The patient / caregiver reports he/she is: not in a situation that causes fear, pain or injury. Nutritional screening: No deficits noted. Advance Directives: There is no active DNR order. home support is adequate. Assessment: 18:30 General: Pt laying in bed. Dinner tray provided. Will continue to monitor. ld5 19:01 General: Pt reports eating some of dinner tray but says he is finished. Pt currently ld5 laying quietly in bed. Blankets provided. Mother at bedside. Will continue to monitor. 20:00 General: Appears in no apparent distress, comfortable, Behavior is pleasant, resting on rw1 stretcher with eyes closed, safety maintained. Respiratory: Airway is patent Respiratory effort is even, unlabored. Derm: Skin is pink, warm & dry. normal. 21:01 Reassessment: Patient appears in no apparent distress at this time. resting on rw1 stretcher with eyes closed, safety maintained will monitor.. 22:00 General: Appears in no apparent distress, comfortable, Behavior is cooperative, juanita pleasant. Neurological: Level of Consciousness is awake, alert, obeys commands, Oriented to person, place, time, Speech is normal. Respiratory: No deficits noted. Airway is patent Respiratory effort is even, unlabored, Respiratory pattern is regular, symmetrical. Derm: Skin is pink, warm & dry. Mental Health Eval: 20:18 Status: The patient is not a compressor service technician or dependent. [facility] Behavioral Health: The patient is not an established patient of [facility] Behavioral Health. Referral Information: Evaluation referral is generated by HENRRY Zapata via [employer]. The patient was referred for evaluation because PT is experiencing Auditory Hallucinations and is manic. Subjective: Subjective: The patients chief complaint is PT was discharged from [facility] 03/09/2016 to his mother where he is living temporarily after he decided to move from his subsidized apartment after he was spoken too about his behavior. Mother states that PT did well for a day or two but then began becoming irritable and paces constantly . He then began to respond to internal stimuli and one morning she heard what she thought was an argument between PT and his 25 year old brother but when she went to intervene PT was alone. The brother is hesitant to be alone with PT at this time. Mother states PT is safe in her home but that she herself does not feel safe "I have never seen him like this before. He is constantly irritated and talking to himself" Mother has heard PT talk to "Kennedy" and ask hi why he is inside of his body. PT by hx is considered a calm individual but when he is not doing well mother will see the listed behaviors. PT states his medication are not working and that he is here for admission to address this. He is denying AH but had moments of staring off and pausing indicating internal stimuli. PT denies SI/HI at this time. . Delusions are denied. Patient's mood is irritable, Auditory Hallucinations are suspected. 20:31 Mental Health history: alcohol abuse, abusing cocaine. crack cocaine. methamphetamine. jfb paranoia, schizophrenia, sleep disturbance, Mental Health Admissions: PT has had multiple admissions throughout his life with the most recent 02/2016 Current Outpatient Mental Health Services: Psychiatrist / Agency: [facility]. Therapist / Agency: [facility] Richards. Ux Interaction Designer / Agency: [facility] Doan. Current living environment is The patient currently lives with his / her mother, . Patient presents to Emergency Department with the following symptoms within the past 2 weeks: agitation, alcohol abuse, auditory hallucinations mother and providers hyperactivity, labile mood, paranoia, psychosis, sleep disturbance - insomnia. Substance abuse: Patient uses Mother states PT has a payee via DSS and when he is given money he walks to the store after she goes to bed to buy alcohol Patient uses tobacco 2 packs Frequency daily. Mental status exam: Patients appearance is appropriate, Patient's behavior is cooperative, minimally responsive Speech is normal. Affect is flat. Mood is depressed. Auditory Hallucinations are suspected. Appetite is normal. Memory is good. Energy level is hyperactive. Content of thought is paranoid. in regards to many areas to include having someone in his body Thought process is loose. Cognitive level is Oriented to person, place, situation Patient's insight is poor. Judgement is poor. Rapport with interviewer is good. Suicidal Ideation is not present. Homicidal ideation is not present. Disposition: Medically cleared for disposition by Al Chase DO Psychiatric Consult is performed by phone with Dr Sagar Sanders MD. [facility] Admission Criteria: The patient displays symptoms of severe psychiatric disorder resulting in disordered behavior and significant interference with his / her ability to maintain self care. Hallucinations. Delusions. The patient requires continuous observation and/or control to protect self, others or property. The patient's care requires a multi-modal treatment plan under close supervision and coordination due to the complexity and severity of the patient's symptoms. The patient requires administration and monitoring of psychoactive medications by skilled medical providers due to the side effects of the psychoactive medications or significant dosage adjustments. Legal Status: Patient's legal status will be Emergency admission: 939. [place] because the patient does not display any suicidal or homicidal ideations and does not pose a risk to self or others. DSM-V Differential Diagnosis: Schizophrenia (F20.9). Awaiting: transfer to [facility]. 04/02 09:42 Insurance Pre-Certification: approved by: Gracy\\ [facility] for 5 days; 04/01- and rb review on 04/05/16 with Sarah Arredondo\\ #[phone]. Auth# [id number].. Vital Signs: 04/01 17:33 BP 175 / 94; Pulse 88; Resp 18; Temp 96.6; Pulse Ox 98% ; Weight 84.82 kg; Height 5 ft. elp 8 in. (172.72 cm); Pain 0/10; 19:01 BP 153 / 91; Pulse 73; Resp 18; Temp 96.8(O); Pulse Ox 98% on R/A; Pain 0/10; ld5 22:27 BP 142 / 88; Pulse 59; Resp 18; Temp 98.8(TE); Pulse Ox 99% on R/A; Pain 0/10; taylor 17:33 Body Mass Index 28.43 (84.82 kg, 172.72 cm) elp Vitals: 17:33 Log In Time: April 01, 2016 at 17:30. RN notified that patient meets Red Flag elp criteria. ED Course: 17:32 Patient visited by Julieta Galloway PCA. elp 17:32 Patient moved to Waiting elp 17:33 [facility] is Private Physician. elp 17:33 Patient visited by Julieta Galloway PCA. elp 17:36 Patient moved to Pre RCE elp 17:48 Patient moved to [facility] dpm 17:51 Triage Initiated ld5 17:55 Sultana Hargrove MD is Attending Physician. sd1 17:55 Patient visited by Sultana Hargrove MD. sd1 17:55 Pt greeted and oriented to ED. Patient advised of names of staff involved in care, dpm location of call smith, wait times and NPO status. Patient has correct armband on for positive identification. Placed in gown. Placed in psych safe attire. Security observing. Property removed, inventory done, secured in belongings bag- placed in locked locker. Placed in locker 5. Psych Safety Check: Location: Psych Room. Visual Assessment: Cooperative. 17:59 Patient visited by Harish Nguyen. dpm 18:10 Patient visited by Mary Carrasquillo,ADAL. ld5 18:19 Patient visited by Mary Carrasquillo,ADAL. ld5 18:19 Acetaminophen Level Sent. ld5 18:19 Basic Metabolic Profile Sent. ld5 18:19 Complete Blood Count Sent. ld5 18:19 Drug Eval Toxicology ED Only Sent. ld5 18:19 Ethyl Alcohol (ethanol) Sent. ld5 18:19 Liver Profile Sent. ld5 18:19 Salicylate Level Sent. ld5 18:19 Thyroid Stimulating Hormone Sent. ld5 18:21 Patient visited by Harish Nguyen. dpm 18:30 The patient / caregiver is instructed regarding the plan of care and ED course. ld5 18:30 No IV's were initiated during this patient's visit. No procedures done that require ld5 assistance. Labs drawn. (by ED staff). Sent per order to lab. Urine collected. Clean catch specimen. Urine specimen sent to lab. 18:31 Patient visited by Mary Carrasquillo,ADAL. ld5 18:44 Patient visited by Harish Nguyen. dpm 19:01 Patient visited by Harish Nguyen. dpm 19:02 Patient visited by Mary Carrasquillo RN. ld5 19:11 Mckinley Diaz LPN is Primary Nurse. rw1 19:16 Patient visited by Harish Nguyen. dpm 19:36 Patient visited by Choco Mireles. tr 19:46 Patient visited by Choco Mireles. tr 19:50 Attending Physician role handed off by Sultana Hargrove MD cs11 19:50 Al Chase DO is Attending Physician. cs11 20:00 Patient visited by Choco Mireles. tr 20:15 Patient visited by Choco Mireles. tr 20:28 Patient visited by Choco Mireles. tr 20:48 Patient visited by Choco Mireles. tr 21:05 Patient visited by Choco Mireles. tr 21:29 Patient visited by Choco Mireles. tr 21:46 Patient visited by Choco Mireles. tr 21:55 E Legal paperwork was scanned into [employer] and attached to record. jl 21:58 Patient visited by Choco Mireles. tr 22:27 Patient visited by Casi Camacho PCA. taylor 22:34 Patient visited by Choco Mireles. tr 22:44 Patient visited by Choco Mireles. tr 22:46 Sagar Sanders MD is Hospitalizing Provider. cs11 23:06 [facility] Payment Agreement was scanned into [employer] and attached to record. gjb 04/02 10:10 T-Sheet-- Draft Copy was scanned into [employer] and attached to record. gb Attachments: 04/01 21:55 MHE Legal paperwork jl Order Results: Lab Order: Acetaminophen Level; SPEC'M 04/01/16 18:13 Test: ACETAMINOPHEN LEVEL; Value: < 2.0; Range: 10.0-30.0; Abnormal: Below low normal; Units: UG/ML; Status: F Lab Order: Basic Metabolic Profile; SPEC'M 04/01/16 18:13 Test: GLUCOSE, FASTING; Value: 176; Range: 70-105; Abnormal: Above high normal; Units: MG/DL; Status: F Test: BLOOD UREA NITROGEN; Value: 8; Range: 7-18; Units: MG/DL; Status: F Test: CREATININE FOR GFR; Value: 0.98; Range: 0.70-1.30; Units: MG/DL; Status: F Test: GLOMERULAR FILTRATION RATE; Value: > 60.0; Range: >60; Status: F Test: SODIUM LEVEL; Value: 138; Range: 136-145; Units: MEQ/L; Status: F Test: POTASSIUM SERUM; Value: 3.8; Range: 3.5-5.1; Units: MEQ/L; Status: F Test: CHLORIDE LEVEL; Value: 103; Range: 98-107; Units: MEQ/L; Status: F Test: CARBON DIOXIDE LEVEL; Value: 27; Range: 21-32; Units: MEQ/L; Status: F Test: ANION GAP; Value: 8; Range: 8-16; Units: MEQ/L; Status: F Test: CALCIUM LEVEL; Value: 8.7; Range: 8.5-10.1; Units: MG/DL; Status: F Test Note: ; Units are mL/min/1.73 m2 Chronic Kidney Disease Staging per NKF: Stage I & II GFR >=60 Normal to Mildly Decreased Stage III GFR 30-59 Moderately Decreased Stage IV GFR 15-29 Severely Decreased Stage V GFR <15 Very Little GFR Left ESRD GFR <15 on INFORMATION RESOURCES MANAGER Lab Order: Complete Blood Count; SPEC'M 04/01/16 18:13 Test: WHITE BLOOD COUNT; Value: 7.7; Range: 4.0-10.0; Units: K/mm3; Status: F Test: RED BLOOD COUNT; Value: 4.40; Range: 4.30-6.10; Units: M/mm3; Status: F Test: HEMOGLOBIN; Value: 13.7; Range: 14.0-18.0; Abnormal: Below low normal; Units: g/dl; Status: F Test: HEMATOCRIT; Value: 39.7; Range: 42.0-52.0; Abnormal: Below low normal; Units: %; Status: F Test: MEAN CORPUSCULAR VOLUME; Value: 90.4; Range: 80.0-96.0; Units: fl; Status: F Test: MEAN CORPUSCULAR HEMOGLOBIN; Value: 31.1; Range: 27.0-33.0; Units: pg; Status: F Test: MEAN CORPUSCULAR HGB CONC; Value: 34.5; Range: 32.0-36.5; Units: g/dl; Status: F Test: RED CELL DISTRIBUTION WIDTH; Value: 12.9; Range: 11.5-14.5; Units: %; Status: F Test: PLATELET COUNT, AUTOMATED; Value: 277; Range: 150-450; Units: k/mm3; Status: F Lab Order: Drug Eval Toxicology ED Only; SPEC'M 04/01/16 18:14 Test: AMPHETAMINES LEVEL URINE; Value: NEGATIVE; Range: NEGATIVE; Status: F Test: BARBITURATES URINE; Value: NEGATIVE; Range: NEGATIVE; Status: F Test: BENZODIAZEPINES URINE; Value: NEGATIVE; Range: NEGATIVE; Status: F Test: CANNABINOIDS URINE; Value: NEGATIVE; Range: NEGATIVE; Status: F Test: COCAINE METABOLITE URINE; Value: NEGATIVE; Range: NEGATIVE; Status: F Test: METHADONE URINE; Value: NEGATIVE; Range: NEGATIVE; Status: F Test: OPIATES URINE; Value: NEGATIVE; Range: NEGATIVE; Status: F Test: TRICYCLIC ANTIDEPRESS URINE; Value: NEGATIVE; Range: NEGATIVE; Status: F Test Note: ; ALL PRESUMPTIVE POSITIVE FINDINGS ARE UNCONFIRMED NORMAL VALUES THRESHOLD IN NG/ML AMPHETAMINES 1000 METHAMPHETAMINES 1000 BARBITURATES 300 BENZODIAZEPINES 300 CANNABINOIDS (THC) 50 COCAINE METABOLITE 300 METHADONE 300 OPIATES 300 PHENCYCLIDINE 25 TRICYCLIC ANTIDEPRESSANTS 1000 RESULTS ARE FOR MEDICAL PURPOSES ONLY. ALL URINE SPECIMENS WILL BE SAVED FOR 3 DAYS. IF CONFIRMATION OF A PRESUMPTIVE POSTIVE SCREEN RESULT IS DESIRED, CALL CHEMISTRY ([phone]) AND REQUEST URINE TO BE SENT TO REFERENCE LAB. FOR A LIST OF CLOSELY RELATED COMPOUNDS PLEASE CALL THE LAB. Lab Order: Ethyl Alcohol (ethanol); SPEC'M 04/01/16 18:13 Test: ETHYL ALCOHOL (ETHANOL); Value: 0.003; Range: 0.000-0.010; Units: %; Status: F Lab Order: Liver Profile; SPEC'M 04/01/16 18:13 Test: AST/SGOT; Value: 18; Range: 15-37; Units: U/L; Status: F Test: ALT/SGPT; Value: 42; Range: 12-78; Units: U/L; Status: F Test: ALKALINE PHOSPHATASE; Value: 64; Range: 45-117; Units: U/L; Status: F Test: BILIRUBIN,TOTAL; Value: 0.2; Range: 0.2-1.0; Units: MG/DL; Status: F Test: BILIRUBIN,DIRECT; Value: < 0.1; Range: 0.0-0.2; Units: MG/DL; Status: F Test: TOTAL PROTEIN; Value: 6.9; Range: 6.4-8.2; Units: GM/DL; Status: F Test: ALBUMIN; Value: 3.5; Range: 3.2-5.2; Units: GM/DL; Status: F Test: ALBUMIN/GLOBULIN RATIO; Value: 1.03; Range: 1.00-1.93; Status: F Lab Order: Salicylate Level; SPEC'M 04/01/16 18:13 Test: SALICYLATE LEVEL; Value: 4.1; Range: 5.0-30.0; Abnormal: Below low normal; Units: MG/DL; Status: F Lab Order: Thyroid Stimulating Hormone; SPEC'M 04/01/16 18:13 Test: THYROID STIMULATING HORMONE; Value: 1.160; Range: 0.358-3.740; Units: uIU/ML; Status: F Outcome: 04/01 22:38 Discharge Assessment: Patient awake, alert and oriented x 3. No cognitive and/or juanita functional deficits noted. Patient verbalized understanding of disposition instructions. patient administered narcotics - no. The following High Risk Discharge criteria are identified: None. Admitted to Psych accompanied by tech, via wheelchair, with chart. Condition: stable. No special radiology studies were completed. 22:47 Decision to Hospitalize by Provider. cs11 22:47 Patient left the ED. juanita Signatures: Sultana Hargrove MD MD sd1 Odette Ha RN RN Keturah Cornejo PSA PSA rb Robbie Ching, PSA PSA jl Renetta Ward, Reg Reg gb Chi, Choco tr Mckinley Diaz,HOME MISSION WORKER HOME MISSION WORKER rw1 Sabra Elias, PSA PSA jfb Mary Carrasquillo,RN RN ld5 Doug, Casi, HIGH SCHOOL PHYSICAL EDUCATION TEACHER HIGH SCHOOL PHYSICAL EDUCATION TEACHER taylor Wendy, Harish dpm Al Chase, DO DO cs11 Julieta Galloway, HIGH SCHOOL PHYSICAL EDUCATION TEACHER HIGH SCHOOL PHYSICAL EDUCATION TEACHER carltonp Akiko Aguiar Corrections: (The following items were deleted from the chart) 20:56 20:18 Subjective: lazara haile Chart Complete MTDD
--- NOTE | 2016-04-03 23:48 | EDDOCDS ---
Physician Documentation [facility] Name: Ivan Hirsch Age: 26 yrs Sex: Male : 1990 Arrival Date: 04/01/2016 Time: 17:32 Bed [facility] Private MD: [facility] Disposition: 04/01/16 22:47 Hospitalization ordered by Sagar Sanders for Inpatient Admission. Preliminary diagnosis is Schizophrenia, unspecified. - Bed requested for Admit. - Status is Inpatient Admission. mar - Condition is Stable. - Problem is chronic. - Symptoms have improved. Historical: - Allergies: no known allergies; - Home Meds: 1. Depakote 500 mg Oral TbEC 2 tabs nightly 2. Invega Sustenna intramuscular monthly, per mother due on Apr 06 3. Prozac 20 mg Oral cap 1 cap once daily 4. Risperdal 2 mg Oral tab 1 tab three times a day - PMHx: Schizophrenia; - PSHx: Cholecystectomy; - Social history: Smoking status: Patient uses tobacco products, current every day smoker. No barriers to communication noted, The patient speaks fluent Italian. - Family history: Not pertinent. - : The pt / caregiver states he / she is not on anticoagulants. Home medication list is obtained from the patient, [employer] import data. - Exposure Risk Screening:: None identified. Vital Signs: 04/01 17:33 BP 175 / 94; Pulse 88; Resp 18; Temp 96.6; Pulse Ox 98% ; Weight 84.82 kg / 187 lbs; elp Height 5 ft. 8 in. (172.72 cm); Pain 0/10; 19:01 BP 153 / 91; Pulse 73; Resp 18; Temp 96.8(O); Pulse Ox 98% on R/A; Pain 0/10; ld5 22:27 BP 142 / 88; Pulse 59; Resp 18; Temp 98.8(TE); Pulse Ox 99% on R/A; Pain 0/10; taylor 17:33 Body Mass Index 28.43 (84.82 kg, 172.72 cm) elp MDM: 17:53 Consult PFS/PSA/Development Educator ordered. sd1 17:53 Consult PFS/PSA/Development Educator: Patient's case requires discussion with on-call sd1 Psychiatrist ordered. 17:53 PSA/PFS to call Nursing Airline Transport Pilot, to enter patient data on [place] Safe [place] if patient sd1 involuntarily admitted or transferred for SI or HI ordered. 17:53 Confirm accurate psychiatric medication list and times of last dosage ordered. sd1 17:53 Detain Pt Until Medically/PFS Cleared ordered. sd1 17:53 Acetaminophen Level Ordered. EDMS 17:53 Basic Metabolic Profile Ordered. EDMS 17:53 Complete Blood Count Ordered. EDMS 17:53 Drug Eval Toxicology ED Only Ordered. EDMS 17:53 Ethyl Alcohol (ethanol) Ordered. EDMS 17:53 Liver Profile Ordered. EDMS 17:53 Salicylate Level Ordered. EDMS 17:53 Thyroid Stimulating Hormone Ordered. EDMS 18:21 REGULAR DIET PLASTIC RUIZ+DIET ordered. EDMS 21:05 Consult PFS/PSA/Development Educator: Patient's case requires discussion with on-call [facility] Psychiatrist complete. 21:06 Consult PFS/PSA/Development Educator complete. b 21:06 PSA/PFS to call Nursing Airline Transport Pilot, to enter patient data [place] if patient jfb involuntarily admitted or transferred for SI or HI complete. 21:47 Admit to IM: ordered. EDMS 21:48 REGULAR DIET ordered. EDMS 21:55 M[facility] Legal paperwork was scanned into [employer] and attached to record. 22:48 BED REQUEST+ADM ordered. EDMS 23:06 [facility] Payment Agreement was scanned into [employer] and attached to record. [facility] 23: Financial registration complete. [facility] 04/02 10:10 T-Sheet-- Draft Copy was scanned into [employer] and attached to record. gb Signatures: Dispatcher [employer] [facility] Sultana Hargrove MD MD sd1 Odette Ha, RN RN Robbie Mosqueda, PSA PSA Renetta Cruz, Reg Reg gb Sabra Elias, PSA PSA jfb Mary Carrasquillo,RN RN ld5 Al Chase DO DO cs11 Akiko Aguiar The chart was reviewed and I authenticate all verbal orders and agree with the evaluation and treatment provided.Attachments: 23:06 [facility] Payment Agreement [facility] 04/02 10:10 T-Sheet-- Draft Copy gb Chart Complete MTDD
[2016-04-04 06:08] VITALS: BP 117/66
[2016-04-04] MEDS: NICOTINE 21MG/24HR 1 EA TRANSDERMAL TD SCH (08:19)
[2016-04-04] MEDS: risperiDONE 2 MG TAB PO SCH ×2 (08:19→20:53)
[2016-04-04 18:00] VITALS: BP 135/77
[2016-04-04] MEDS: QUEtiapine FUMARATE 100 MG TAB PO PRN (20:53)
--- NOTE | 2016-04-04 23:51 | IPNPDOC ---
[facility] Progress Note Progress Note DATE OF SERVICE: 04/04/16 SUBJECTIVE: Patient reports his mood as okay today. Patient is cooperative with the interview, but continues to display notable thought blocking when responding to questions from this provider. Patient reports he is med compliant and denies medication side effects. Patient is withdrawn to his bedroom the majority of the day. Patient continues to be noticed responding to internal stimuli( talking to himself as if in a conversation with someone not there). Patient reports sleep and appetite are within normal limits. Patient reports ongoing feeling that he can perceive thoughts of other people or can read other people' s mind. Patient denies SI/HI and denies AH/VH. OBJECTIVE: VITAL SIGNS: See below. CURRENT MEDICATIONS: See below. MENTAL STATUS EXAMINATION: Patient is a [26yo male ], [looks stated age and in no acute distress.]. Speech: Is [RRR and spontaneous]. Thought processes: [thought blocking]. Thought content: [paucity]. Associations: [Poor]. Abnormal or psychotic thoughts: [Patient denies auditory and visual hallucinations, but is noticed to be responding to internal stimuli today Judgment: [poor] Insight: [poor] Oriented to: [place and person.] Recent and Remote Memory: [Immediate, short-term and long-term memory is intact] . Attention Span and Concentration: [Fair]. Fund of knowledge: [ Good]. Mood: [fine]. Affect: [flat ]. ASSESSMENT: 1. Schizophrenia PLAN: 1. Continue current psychotropic regimen as written. TIME SPENT: [30] minutes. Vital Signs Vital Signs Date Time Temp Pulse Resp B/P Pulse Ox O2 Delivery O2 Flow Rate FiO2 04/04/16 18:00 97.6 88 16 135/77 04/01/16 23:35 96 Room Air Current Medications Current Medications Medications (Trade) Dose Ordered Sig/Philippe Route PRN Reason Start Time Stop Time Status Last Admin Dose Admin Acetaminophen (Tylenol) 650 mg Q6HP PRN PO HEADACHE or DISCOMFORT 04/01/16 21:00 05/01/16 20:59 Al Hydrox/Mg Hydrox/Simethicone (Mylanta) 30 ml Q4HP PRN PO HEARTBURN/INDIGESTION 04/01/16 21:00 05/01/16 20:59 Divalproex Sodium (Depakote Er) 500 mg BID PO 04/01/16 21:00 04/01/16 23:44 DC Home Med (Med Rec Complete!) ASDIRECTED XX 04/01/16 23:00 04/01/16 23:00 DC Influenza Virus Vaccine (Fluzone Quadrivalent Pf Vaccine) 0.5 ml 1T@09 IM 04/03/16 09:00 04/03/16 23:59 DC 04/03/16 08:23 Magnesium Hydroxide (Milk Of Magnesia) 30 ml DAILYPRN PRN PO CONSTIPATION 04/01/16 21:00 05/01/16 20:59 Nicotine (Nicoderm Cq 21mg) 1 patch DAILY TD 04/02/16 09:00 05/02/16 08:59 04/04/16 08:19 Olanzapine (ZyPREXA) 5 mg Q6HP PRN PO AGITATION/ANXIETY 04/01/16 21:00 05/01/16 20:59 Quetiapine Fumarate (SEROquel) 100 mg QHSP PRN PO INSOMNIA 04/01/16 21:00 05/01/16 20:59 04/04/16 20:53 Risperidone (RisperDAL) 2 mg BID PO 04/01/16 21:00 05/01/16 20:59 04/04/16 20:53 Allergies Coded Allergies: POLLEN (Verified Allergy, Unknown, 02/15/12) AMBER DAS MD Apr 04, 2016 23:51
--- NOTE | 2016-04-04 23:51 | IPNPDOC ---
[facility] Progress Note Progress Note DATE OF SERVICE: 04/03/16 SUBJECTIVE: Patient reports his mood as fine today. Patient is cooperative with the interview, but has notable thought blocking when responding to questions from this provider. Patient reports he is med compliant and denies medication side effects. Patient is visible for meals. He primarily is withdrawn to his bedroom the majority of the day. While in his bedroom, patient is noticed this provider to be responding to internal stimuli. Patient reports sleep and appetite are within normal limits. Patient denies headache, chest pain, abdominal pain and reports urination and bowel movements are within normal limits. Patient reports ongoing feeling that he can perceive thoughts of other people or can read other people's mind. Patient denies SI/HI and denies AH/VH. OBJECTIVE: VITAL SIGNS: See below. CURRENT MEDICATIONS: See below. MENTAL STATUS EXAMINATION: Patient is a [26yo male ], [looks stated age and in no acute distress.]. Speech: Is [RRR and spontaneous]. Thought processes: [thought blocking]. Thought content: [paucity]. Associations: [Poor]. Abnormal or psychotic thoughts: [Patient denies auditory and visual hallucinations, but is noticed to be responding to internal stimuli today Judgment: [poor] Insight: [poor] Oriented to: [place and person.] Recent and Remote Memory: [Immediate, short-term and long-term memory is intact] . Attention Span and Concentration: [Fair]. Fund of knowledge: [ Good]. Mood: [fine]. Affect: [flat ]. ASSESSMENT: 1. Schizophrenia PLAN: 1. Continue current psychotropic regimen as written. TIME SPENT: [30] minutes. Vital Signs Vital Signs Date Time Temp Pulse Resp B/P Pulse Ox O2 Delivery O2 Flow Rate FiO2 04/04/16 18:00 97.6 88 16 135/77 04/01/16 23:35 96 Room Air Current Medications Current Medications Medications (Trade) Dose Ordered Sig/Philippe Route PRN Reason Start Time Stop Time Status Last Admin Dose Admin Acetaminophen (Tylenol) 650 mg Q6HP PRN PO HEADACHE or DISCOMFORT 04/01/16 21:00 2/25/17 20:59 Al Hydrox/Mg Hydrox/Simethicone (Mylanta) 30 ml Q4HP PRN PO HEARTBURN/INDIGESTION 04/01/16 21:00 05/01/16 20:59 Divalproex Sodium (Depakote Er) 500 mg BID PO 04/01/16 21:00 04/01/16 23:44 DC Home Med (Med Rec Complete!) ASDIRECTED XX 04/01/16 23:00 04/01/16 23:00 DC Influenza Virus Vaccine (Fluzone Quadrivalent Pf Vaccine) 0.5 ml 1T@09 IM 04/03/16 09:00 04/03/16 23:59 DC 04/03/16 08:23 Magnesium Hydroxide (Milk Of Magnesia) 30 ml DAILYPRN PRN PO CONSTIPATION 04/01/16 21:00 05/01/16 20:59 Nicotine (Nicoderm Cq 21mg) 1 patch DAILY TD 04/02/16 09:00 05/02/16 08:59 04/04/16 08:19 Olanzapine (ZyPREXA) 5 mg Q6HP PRN PO AGITATION/ANXIETY 04/01/16 21:00 05/01/16 20:59 Quetiapine Fumarate (SEROquel) 100 mg QHSP PRN PO INSOMNIA 04/01/16 21:00 05/01/16 20:59 04/04/16 20:53 Risperidone (RisperDAL) 2 mg BID PO 04/01/16 21:00 05/01/16 20:59 04/04/16 20:53 Allergies Coded Allergies: POLLEN (Verified Allergy, Unknown, 02/15/12) AMBER DAS MD Apr 04, 2016 23:51
[2016-04-05 06:48] VITALS: BP 113/70
[2016-04-05] MEDS: NICOTINE 21MG/24HR 1 EA TRANSDERMAL TD SCH (08:10)
[2016-04-05] MEDS: risperiDONE 2 MG TAB PO SCH ×2 (08:11→20:12)
[2016-04-05] MEDS: ACETAMINOPHEN TAB 650MG DOSE (2X325MG) PO PRN (10:58)
--- NOTE | 2016-04-05 16:39 | IPN ---
DATE: 04/05/2016 A 26-year-old male with a history of schizophrenia, admitted with paranoid delusions and auditory hallucinations. His mother reported that he became more irritable, pacing constantly, responding to internal stimuli. The patient was talking about "there is something in my back, something that is alive and drains all my energy." MEDICATIONS: - Seroquel 100 mg by mouth nightly as needed for insomnia - Risperdal 2 mg by mouth twice a day - Invega Sustenna 156 mg IM every 4 weeks SUBJECTIVE: "I feel better." OBJECTIVE: The patient reports feeling better but still is quite psychotic. Nursing reports that he is talking to self and reacting to internal stimuli. The patient reports that he has been able to sleep better with the help of the medication. He has no interaction with other patients and staff and remains to himself in his room. MENTAL STATUS EXAMINATION: The patient is dressed in [facility]. The patient has fair eye contact. Speech is slow and monotone. Mood is anxious. Affect is blunted. The patient continues to have paranoid delusions and auditory hallucinations. Memory, attention and concentration are impaired. The patient is denying suicidal or homicidal ideation. Insight and judgment is poor. ASSESSMENT: Florence I: 1. Schizoaffective disorder versus schizophrenia. 2. Polysubstance dependency by history. Florence II: Deferred. PLAN: 1. Continue with Seroquel 100 mg by mouth nightly as needed for insomnia. 2. Risperdal 2 mg by mouth twice a day. 3. Invega Sustenna 156 mg intramuscularly (IM) every 4 weeks. 4. Continue medication management, individual and group therapy.
[2016-04-05 18:00] VITALS: BP 138/86
[2016-04-05] MEDS: QUEtiapine FUMARATE 100 MG TAB PO PRN (20:12)
[2016-04-06 06:38] VITALS: BP 134/86
[2016-04-06] MEDS: risperiDONE 2 MG TAB PO SCH ×2 (08:49→20:49)
[2016-04-06] MEDS: NICOTINE 21MG/24HR 1 EA TRANSDERMAL TD SCH (08:52)
[2016-04-06] MEDS ORDERED: PALIPERIDONE PALMITATE 156 MG/1ML INJ(INVEGA SUSTENNA)(J2426) IM ONE (09:00)
[2016-04-06 18:00] VITALS: BP 129/78
[2016-04-06] MEDS: QUEtiapine FUMARATE 100 MG TAB PO PRN (20:49)
[2016-04-06] MEDS: ACETAMINOPHEN TAB 650MG DOSE (2X325MG) PO PRN (20:49)
--- NOTE | 2016-04-06 21:14 | IPN ---
DATE: 04/06/2016 26-year-old male with history of schizophrenia admitted with paranoid delusions and auditory hallucinations. His mother reported that he became more irritable, pacing constantly, and responding to internal stimuli. Patient was talking about "there is something in my back, something that is alive and drains all my energy." MEDICATIONS: - Seroquel 100 mg by mouth nightly as needed for insomnia - Risperdal 2 mg by mouth twice a day - Invega Sustenna 156 mg intramuscular (IM) every 4 weeks SUBJECTIVE: "Nothing is wrong with me." OBJECTIVE: Patient is psychotic, a very poor historian, has very low insight. His problem list hails about possible auditory hallucinations and interacting to internal stimuli. Patient denies hearing voices. When I ask him what is he saying when he is alone in his room and the nurses can hear him talking, he says that he talks to himself when he gets upset. Asking what is getting him upset, he says "nothing." No evidence of side effects from medication. MENTAL STATUS EXAMINATION: Patient is dressed in [facility]. Patient has poor eye contact. Speech is slow and monotone. He is anxious. Patient continues having paranoid delusions and auditory hallucinations and patient is reacting to internal stimuli but he is guarded, minimizing and denying symptoms. He has very poor insight and judgment. ASSESSMENT: 1. Schizoaffective disorder versus schizophrenia. 2. Polysubstance dependency by history. PLAN: 1. Invega Sustenna 156 mg IM every 4 weeks. 2. Continue with Risperdal 2 mg by mouth twice a day. 3. Continue with Seroquel 100 mg by mouth nightly as needed for insomnia.
[2016-04-07 06:31] VITALS: BP 130/78
[2016-04-07] MEDS: NICOTINE 21MG/24HR 1 EA TRANSDERMAL TD SCH (09:11)
[2016-04-07] MEDS: risperiDONE 2 MG TAB PO SCH (09:11)
--- NOTE | 2016-04-07 14:58 | IPN ---
DATE: 04/07/2016 26-year-old male with history of schizophrenia admitted with paranoid delusions and auditory hallucinations. His mother reported that he became more irritable, patient constantly responding to internal stimuli. Patient was talking about "there is something in my back, something that is alive and drains all my energy." MEDICATIONS: - Seroquel 100 mg by mouth at bedtime - Risperdal 2 mg by mouth twice a day - Invega Sustenna 156 mg intramuscular (IM) every 4 weeks SUBJECTIVE: "I am all right." OBJECTIVE: Patient is a poor historian. Patient is denying/minimizing symptoms in order to get dischared. The patient is denying auditory hallucinations although he is observed by nursing how he talks to himself and interacts with internal stimuli. The patient is denying any paranoid delusions. The patient continues to be guarded. The patient admitted that he was drinking alcohol. According to the chart, he appeared to be doing well with the Risperdal and Invega Sustenna in the previous admission. Now, it is not well known if the patient is going to respond well to Invega Sustenna and Risperdal because it is unknown if he has been compliant with medications and also that he was using alcohol. MENTAL STATUS EXAMINATION: Patient is dressed in [facility]. Poor eye contact. Speech is poor and slow. The patient is anxious, appears guarded and at times angry. Patient appears to continue to be paranoid and having auditory hallucinations, although he denies, but nursing has observed him to talk to himself and interact with internal stimuli. Again, patient minimizing and denying symptoms. He has very poor insight and judgment. ASSESSMENT: 1. Schizoaffective disorder versus schizophrenia. 2. Polysubstance dependency by history. PLAN: 1. Increase Risperdal to 3 mg by mouth twice a day. 2. Continue Invega Sustenna 156 mg IM every 4 weeks.
[2016-04-07 18:00] VITALS: BP 143/81
[2016-04-07] MEDS: risperiDONE 3 MG TAB PO SCH (20:14)
[2016-04-07] MEDS: QUEtiapine FUMARATE 100 MG TAB PO PRN (20:14)
[2016-04-08 06:43] VITALS: BP 128/79
[2016-04-08] MEDS: risperiDONE 3 MG TAB PO SCH ×2 (08:40→20:41)
[2016-04-08] MEDS: NICOTINE 21MG/24HR 1 EA TRANSDERMAL TD SCH (08:41)
--- NOTE | 2016-04-08 17:05 | IPN ---
DATE: 04/08/2016 26-year-old male with history of schizophrenia admitted to our unit with paranoid delusions and auditory hallucinations. This morning his mother reported that he became more irritable and pacing constantly and responding to internal stimuli. Patient was talking about "there is something in my back, something that is alive and drains all of my energy." MEDICATIONS: - Seroquel 100 mg by mouth at bedtime - Risperdal 3 mg by mouth twice a day - Invega Sustenna 156 mg IM every 4 weeks SUBJECTIVE: "I am feeling okay." OBJECTIVE: No major changes although he appears not to interact with internal stimuli as frequent so he appears to be responding to the medication now. One of the problems has been the fact that the patient is drinking alcohol and maybe that prevents the medication from working properly, therefore, the same psychotropic medication has been kept now that he is in the unit and he is monitored closely. Since he is taking a long acting antipsychotic and is tolerating the medication well. If he responds to this medication it will be better to keep him in the same profile and educate the patient about alcohol consumption. If the patient does not respond well to this combination of Risperdal and Invega he will be switched to another agent. MENTAL STATUS EXAMINATION: Patient is dressed in [facility], has poor eye contact, speech is slow and monotone and poor. Patient is anxious, is guarded, at time angry. Patient continues paranoid and having auditory hallucination although the hallucinations appear to have improve in the last 24 hours. Patient continues to talk to himself as reported by nursing. Patient has very poor insight and judgment. ASSESSMENT: 1. Schizophrenia. 2. Polysubstance dependency by history. PLAN: 1. Continue with Risperdal 3 mg by mouth twice a day. 2. Continue with Seroquel 100 mg by mouth at bedtime. 3. Continue Invega Sustenna 156 mg IM every 4 weeks.
[2016-04-08 18:00] VITALS: BP 128/80
[2016-04-08] MEDS: QUEtiapine FUMARATE 100 MG TAB PO PRN (20:41)
[2016-04-09 06:44] VITALS: BP 125/84
[2016-04-09] MEDS: risperiDONE 3 MG TAB PO SCH ×2 (08:33→22:05)
[2016-04-09] MEDS: NICOTINE 21MG/24HR 1 EA TRANSDERMAL TD SCH (08:33)
[2016-04-09 18:00] VITALS: BP 138/80
--- NOTE | 2016-04-09 18:12 | IPN ---
DATE: 04/09/2016 26-year-old male with history of schizophrenia admitted to our unit with symptoms of paranoia, delusions and auditory hallucinations. His mother reported that the patient became more irritable. He was pacing constantly and responding to internal stimuli. Patient was talking about "something is in my back, something that is alive and drains all my energy." MEDICATIONS: - Seroquel 100 mg by mouth at bedtime - Risperdal 3 mg by mouth twice a day - Invega Sustenna 156 mg IM every 4 weeks SUBJECTIVE: "I am okay." OBJECTIVE: Patient continues with very low insight and minimizing all the symptoms. Patient is a poor historian and is not able to explain his auditory hallucinations or what he is responding to when he talks to himself. Patient just states "I am just upset but I know how to deal with it." He is paranoia and hallucinations are improving slowly with the help of medication. Patient denies side effect. Patient states he his sleeping well with the help of Seroquel. Patient appears to be somewhat more insightful about the fact that he had to stop drinking when he is discharged from the unit in order to allow the medications to work properly. MENTAL STATUS EXAMINATION: Patient is dressed in [facility], has fair eye contact, his speech is low and monotone. Patient is somewhat anxious. Continues to be guarded. No longer angry except when he interacts with internal stimuli. Patient continues to have auditory hallucinations and paranoid delusions and a nurse is observing him to talk to himself in the room intermittently. ASSESSMENT: 1. Schizophrenia. 2. Polysubstance dependency. PLAN: 1. Continue with Risperdal 3 mg by mouth twice a day. 2. Continue with Seroquel 100 mg by mouth at bedtime. 3. Continue Invega Sustenna 156 mg IM every 4 weeks.
[2016-04-09] MEDS: QUEtiapine FUMARATE 100 MG TAB PO PRN (22:05)
[2016-04-10 06:40] VITALS: BP 143/63
[2016-04-10] MEDS: risperiDONE 3 MG TAB PO SCH ×2 (09:45→20:29)
[2016-04-10] MEDS: NICOTINE 21MG/24HR 1 EA TRANSDERMAL TD SCH (09:45)
[2016-04-10 18:00] VITALS: BP 145/75
[2016-04-10] MEDS: QUEtiapine FUMARATE 100 MG TAB PO PRN (20:28)
[2016-04-11 06:24] VITALS: BP 124/67
[2016-04-11] MEDS: risperiDONE 3 MG TAB PO SCH ×2 (09:36→20:54)
[2016-04-11] MEDS: NICOTINE 21MG/24HR 1 EA TRANSDERMAL TD SCH (09:37)
[2016-04-11] MEDS: QUEtiapine FUMARATE 100 MG TAB PO PRN (20:54)
[2016-04-12 06:31] VITALS: BP 126/59
[2016-04-12] MEDS: risperiDONE 3 MG TAB PO SCH ×2 (08:40→21:16)
[2016-04-12] MEDS: NICOTINE 21MG/24HR 1 EA TRANSDERMAL TD SCH (08:40)
--- NOTE | 2016-04-12 14:06 | IPN ---
DATE OF SERVICE: 04/12/2016 A 26-year-old male with history of schizophrenia admitted to our unit with symptoms of paranoia, delusions, and auditory hallucinations. His mother reported that he became irritable. He was pacing constantly and responding to internal stimuli. The patient was talking about "something is in my back, something that is alive and drains all my energy." MEDICATIONS: - Seroquel 100 mg by mouth nightly - Risperdal 3 mg by mouth twice a day - Invega Sustenna 156 mg intramuscular (IM) every 4 weeks SUBJECTIVE: "I am feeling better." OBJECTIVE: The patient continues having auditory hallucinations and interacting with internal stimuli, although the severity and frequency of the symptoms have been decreasing. The patient is a poor historian and has difficulty explaining the auditory hallucinations or explaining this "entity" that drains all his energy. The patient denies side effects from medication. He is interacting better with other patients and staff and is motivated for treatment. MENTAL STATUS EXAMINATION: The patient is dressed in [facility]. The patient is cooperative during the interview. The patient is somewhat minimizing the symptoms in order to be discharged sooner. The patient continues anxious and somewhat guarded but significantly better. Continues having auditory hallucinations and paranoid delusions. Insight and judgment is limited. ASSESSMENT: Schizophrenia. PLAN: 1. Continue with Risperdal 3 mg by mouth twice a day. 2. Continue with Seroquel 100 mg by mouth nightly. 3. Continue Invega Sustenna 156 mg IM every 4 weeks.
[2016-04-12 18:16] VITALS: BP 132/69
[2016-04-12] MEDS: QUEtiapine FUMARATE 100 MG TAB PO PRN (21:16)
[2016-04-13 06:24] VITALS: BP 129/65
[2016-04-13] MEDS: NICOTINE 21MG/24HR 1 EA TRANSDERMAL TD SCH (08:53)
[2016-04-13] MEDS: risperiDONE 3 MG TAB PO SCH ×2 (08:53→20:53)
--- NOTE | 2016-04-13 15:59 | IPN ---
DATE: 04/13/2016 A 26-year-old male with a history of schizophrenia, admitted to our unit with symptoms of paranoia, delusions, and auditory hallucinations. His mother reported that he became irritable. He was pacing constantly and was responding to internal stimuli. Patient was talking about "something in my back. Something that is alive and drains out my energy." MEDICATIONS: - Seroquel 100 mg by mouth at bedtime - Risperdal 3 mg by mouth twice a day - Invega Sustenna 156 mg intramuscular (IM) every 4 weeks SUBJECTIVE: "I'm not as upset." OBJECTIVE: Patient is improving slowly. He is still interacting with internal stimuli and at times talks to himself, but the frequency and severity of the episodes have been decreasing. Patient is able to interact better with other patients and is more visible. Denies side effects from the medication and is sleeping better with the help of Seroquel. MENTAL STATUS EXAMINATION: Patient dressed in [facility]. Patient is cooperative during the exam. Has fair eye contact. Mood is euthymic. Patient continues to be somewhat guarded but less so. Patient continues having auditory hallucinations and paranoid delusions but also improving. Insight and judgment are limited. ASSESSMENT: Schizophrenia. PLAN: 1. Continue with Risperdal 3 mg by mouth twice a day. 2. Seroquel 100 mg by mouth at bedtime. 3. Invega Sustenna 156 mg IM every 6 weeks.
[2016-04-13] MEDS: QUEtiapine FUMARATE 100 MG TAB PO PRN (20:53)
[2016-04-13] MEDS: ACETAMINOPHEN TAB 650MG DOSE (2X325MG) PO PRN (20:54)
[2016-04-13 21:51] VITALS: BP 118/66
[2016-04-14 06:36] VITALS: BP 102/59
[2016-04-14] MEDS: risperiDONE 3 MG TAB PO SCH ×2 (08:47→22:02)
[2016-04-14] MEDS: NICOTINE 21MG/24HR 1 EA TRANSDERMAL TD SCH (08:47)
--- NOTE | 2016-04-14 16:29 | IPN ---
DATE: 04/14/2016 A 26-year-old male with a history of schizophrenia, admitted to our unit with symptoms of paranoia, delusions, auditory hallucinations. His mother reported that he became irritable. He was pacing constantly, and he was responding to internal stimuli. Patient was talking about "something in my back, something that is alive and drains out my energy." MEDICATIONS: - Seroquel 100 mg by mouth at bedtime - Risperdal 3 mg by mouth twice a day - Invega Sustenna 156 mg intramuscular (IM) every 4 weeks SUBJECTIVE: "I'm okay." OBJECTIVE: Patient continues to improve very slowly. He is out of his room more often and interacts with selected peers. His affect continues to be blunted. He continues to be observed to talk to himself and react to internal stimuli, but the frequency and intensity have been decreasing throughout the hospitalization. Patient reports that he is sleeping well with the help of Seroquel. MENTAL STATUS EXAMINATION: Patient is dressed in [facility]. Patient is cooperative during the exam. Has fair eye contact. Mood is euthymic. Patient continues somewhat guarded. Continues to report auditory hallucinations, although he cannot explain or give details of them. Patient continues with paranoid delusions. Insight and judgment are poor. ASSESSMENT: Schizophrenia. PLAN: 1. Continue Risperdal 3 mg by mouth twice a day. 2. Continue Seroquel 100 mg by mouth at bedtime. 3. Continue Invega Sustenna 156 mg IM every 4 weeks.
[2016-04-14 18:02] VITALS: BP 132/70
[2016-04-14] MEDS: QUEtiapine FUMARATE 100 MG TAB PO PRN (22:02)
[2016-04-15 06:00] VITALS: BP 119/75
[2016-04-15] MEDS: risperiDONE 3 MG TAB PO SCH ×2 (08:25→21:33)
[2016-04-15] MEDS: NICOTINE 21MG/24HR 1 EA TRANSDERMAL TD SCH (08:26)
[2016-04-15 18:00] VITALS: BP 131/76
--- NOTE | 2016-04-15 19:08 | IPN ---
DATE: 04/15/2016 26-year-old male with history of schizophrenia admitted to our unit with symptoms of paranoia, delusions, auditory hallucinations. His mother reported that he became irritable. He was pacing constantly and he was responding to internal stimuli. The patient was talking about "something in my body, something that is alive and drains out my energy". MEDICATIONS: - Seroquel 100 mg by mouth nightly - Risperdal 3 mg by mouth twice a day - Invega Sustenna 156 mg intramuscular (IM) every 4 weeks SUBJECTIVE: "When can I go home." OBJECTIVE: The patient continues to improve slowly and is close to baseline, although he at times still continues interacting with internal stimuli and talking to self. However, his behavior is under control. He is interacting better with other patients and staff. His mood is euthymic and is motivated for treatment. Says that he is going to stop using alcohol. MENTAL STATUS EXAM: The patient dressed in [facility]. The patient is cooperative. Fair eye contact. Mood is euthymic. The patient continues to have auditory hallucinations, although they are significantly improved from admission and frequency and intensity are down to a minimum. The patient denies suicidal or homicidal ideation. Insight and judgment is limited. ASSESSMENT: Schizophrenia. PLAN: 1. Continue with Risperdal 3 mg by mouth twice a day. 2. Continue with Seroquel 100 mg by mouth nightly. 3. Continue Invega Sustenna 156 mg intramuscular (IM) every 4 weeks. 4. If patient continues improving will discharge tomorrow.
[2016-04-15] MEDS: QUEtiapine FUMARATE 100 MG TAB PO PRN (21:33)
[2016-04-16 06:30] VITALS: BP 127/74
[2016-04-16] MEDS: NICOTINE 21MG/24HR 1 EA TRANSDERMAL TD SCH (08:03)
[2016-04-16] MEDS: risperiDONE 3 MG TAB PO SCH (08:06)
[2016-04-16] MEDS ORDERED: NICO21PAT TD (08:09)
[2016-04-16] MEDS ORDERED: QUET1TAB8 PO (09:42)
[2016-04-16] MEDS ORDERED: RISP3TAB18 PO (09:42)
[2016-04-16] MEDS ORDERED: OSEL75CA PO (11:43)
--- NOTE | 2016-04-17 10:16 | MHDS ---
DATE OF ADMISSION: 04/01/2016 DATE OF DISCHARGE: 04/16/2016 LEGAL STATUS ON ADMISSION: 9.39 legal status. HISTORY OF THE PRESENT ILLNESS: A 26-year-old male with a history of schizophrenia and schizoaffective disorder, bipolar type and also alcohol and polysubstance dependency, including crack cocaine, methamphetamines. The patient was admitted to our unit on a 9.39 legal status. According to the chart, the patient was referred to our emergency department by the therapist at the outpatient clinic. It is reported that he was experiencing auditory hallucinations. Patient was discharged from our unit on 03/09/2016. His mother said that he was living with her temporarily. She says that he was stable only for a few days and started again experiencing psychotic symptoms. He became more irritable, pacing constantly, responding to internal stimuli. His mother said that one morning she heard that he was having an argument with his brother, but she went to the room . Apparently the patient had been compliant with the Invega Sustenna IM every 4 weeks in addition to Risperdal 2 mg three times a day. His mood was described as irritable and having auditory hallucinations. As stated above, the patient has a history of taking alcohol, crack cocaine, cocaine and methamphetamines in the past. The patient, during the interview, said that only drinks "a little alcohol." I am not sure if the patient is reliable. During the interview in our unit, the patient states that the voices are bothering him, but when he is asked about the specifics of the voices, he says, "I don't have voices" but "something is trying to communicate with me." I was not able to gather any other details. The patient also feels like "something in my back." When asked for specifics, he mentions, "I don't know, something that is alive and drains all my energy." The patient also reported mood swings but defines his mood swings as first having normal mood and then "my energy is drained," referring to the above-mentioned psychotic symptoms. So, it appears that the fluctuations of the mood are directly related to his delusions and psychotic symptoms but not primary in nature. He reported that his appetite is fair, has normal self-esteem. He continues to minimize his drug and alcohol use before admission. LABORATORY ON ADMISSION: CBC shows a hemoglobin of 13.7, hematocrit of 39.7, the rest within normal limits. BMP was unremarkable. Urine drug screen (UDS) is negative. Blood alcohol level negative. HOSPITAL COURSE: After the first interview and given the fact that the patient had an admission recently and that notes reflected that the patient was improving with Risperdal and then with Invega Sustenna but now his psychotic symptoms are worse but also in the context of the patient using alcohol, it was decided to continue in this line of treatment. Therefore, he was started on Risperdal 2 mg by mouth twice a day and the Invega Sustenna 156 mg IM shot was given a few days later because it was due for the 4 weeks. Because of his insomnia, he was also started on Seroquel 100 mg by mouth nightly. He stated that it was a relief that he was able to sleep well, that he was not doing so while at home. His psychotic symptoms improved slowly but steadily throughout the hospitalization. The patient had no complications during this hospital admission. The patient has very little insight into his psychiatric problems. The patient is a poor historian and is not able to describe to whom he is interacting with. Nursing has seen him talking to self or yelling inside the room, but when you ask him, he responds, "I'm just only upset." "I don't hear voices." After a few days of hospitalization, he started getting out of the room more often and being more visible. He then started to interact with another patient who he knew from childhood. By the end of the hospitalization, he significantly improved from admission but still sometimes interacts with internal stimuli that is not able to describe. On 04/16/2016, the patient is in stable condition. He does no longer meet criteria for inpatient hospitalization and can be managed on an outpatient basis. The patient will remain with the same dosage of antipsychotic. He needs to continue taking Seroquel since he cannot sleep without it and the plan will be to discontinue this medication when he improves. Also, he will continue with Invega Sustenna 156 mg IM every 4 weeks, but at this point, will also continue taking Risperdal 3 mg by mouth twice a day because he continues to have auditory hallucinations and reacts to internal stimuli. Risperdal will be tapered slowly down and discontinued. MENTAL STATUS EXAMINATION AT DISCHARGE: The patient is dressed in casual clothes. The patient is cooperative. His speech is clear, coherent and normal in rate and is spontaneous. Eye contact is fair. The patient's mood is euthymic. Affect is somewhat blunted. The patient is oriented to time, place, person and situation. Maintains attention and concentration fairly. The patient has auditory hallucinations. The patient continues reporting interactions with an entity that drains his energy but he says he feels much better and now his energy is fine. Denies suicidal or homicidal ideation. Judgment and insight are poor. DISCHARGE DIAGNOSES: [place] I: Schizophrenia. Polysubstance dependency by history. Alcohol dependency. [place] II: Deferred. [place] III: None acute. INSTRUCTIONS TO THE PATIENT The patient is to continue taking his medications as prescribed and followup appointments. He was advised to maintain absolute sobriety from drugs and alcohol. The patient has scheduled appointment for psychotherapeutic medication management, individual psychotherapy and primary care physician.
== END 2016-04-16 15:30 | disposition home or self-care (01) | DRG 750 ==
LOC: M ED 17:32 → M PSY 23:11
PROVIDERS: ADMIT Psychiatry & Neurology Psychiatry; ATTEND Psychiatry & Neurology Psychiatry
DX: F20.9 Schizophrenia, unspecified (principal); F14.20 Cocaine dependence, uncomplicated; F10.20 Alcohol dependence, uncomplicated; F17.210 Nicotine dependence, cigarettes, uncomplicated; Z79.899 Other long term (current) drug therapy

== ENCOUNTER → 2016-06-09 | Outpatient (CLI) | payer OTHER ==
[~2016-06-09] MED LIST changes: +NICO21PAT TD; +OSEL75CA PO; +QUET1TAB8 PO; +RISP2TAB3 PO
[2016-06-09 11:00] LABS: MEAN CORPUSCULAR HEMOGLOBIN 31.2 pg (27.0-33.0); MEAN CORPUSCULAR HGB CONC 34.8 g/dl (32.0-36.5); MEAN CORPUSCULAR VOLUME 89.7 fl (80.0-96.0); RED CELL DISTRIBUTION WIDTH 12.3 % (11.5-14.5); WHITE BLOOD COUNT 9.1 K/mm3 (4.0-10.0)
[2016-06-09 12:03] LABS: ALBUMIN 3.9 GM/DL (3.2-5.2); ALBUMIN/GLOBULIN RATIO 0.95 (1.00-1.93); ALKALINE PHOSPHATASE 66 U/L (45-117); ALT/SGPT 36 U/L (12-78); ANION GAP 7 MEQ/L (8-16); AST/SGOT 21 U/L (15-37); BILIRUBIN,DIRECT 0.1 MG/DL (0.0-0.2); BILIRUBIN,TOTAL 0.6 MG/DL (0.2-1.0); BLOOD UREA NITROGEN 8 MG/DL (7-18); CARBON DIOXIDE LEVEL 31 MEQ/L (21-32); CHLORIDE LEVEL 99 MEQ/L (98-107); CHOLESTEROL LEVEL 213 MG/DL (<200); CREATININE FOR GFR 1.06 MG/DL (0.70-1.30); GLOMERULAR FILTRATION RATE > 60.0 (>60); GLUCOSE, FASTING 115 MG/DL (70-105); POTASSIUM SERUM 4.2 MEQ/L (3.5-5.1); SODIUM LEVEL 137 MEQ/L (136-145); TRIGLYCERIDES LEVEL 176 MG/DL (<150)
== END ==
LOC: M LAB 10:25
PROVIDERS: ATTEND Nurse Practitioner Psychiatric/Mental Health
DX: Z79.899 Other long term (current) drug therapy (principal)

== ENCOUNTER → 2016-07-22 | Outpatient (CLI) | payer OTHER ==
[2016-07-22 08:57] LABS: MEAN CORPUSCULAR HEMOGLOBIN 31.4 pg (27.0-33.0); MEAN CORPUSCULAR HGB CONC 35.3 g/dl (32.0-36.5); RED CELL DISTRIBUTION WIDTH 12.4 % (11.5-14.5); WHITE BLOOD COUNT 6.7 K/mm3 (4.0-10.0)
[2016-07-22 09:14] LABS: ALBUMIN 3.6 GM/DL (3.2-5.2); ALBUMIN/GLOBULIN RATIO 0.95 (1.00-1.93); ALKALINE PHOSPHATASE 53 U/L (45-117); ALT/SGPT 63 U/L (12-78); ANION GAP 7 MEQ/L (8-16); AST/SGOT 33 U/L (15-37); BILIRUBIN,DIRECT 0.1 MG/DL (0.0-0.2); BILIRUBIN,TOTAL 0.4 MG/DL (0.2-1.0); BLOOD UREA NITROGEN 6 MG/DL (7-18); CALCIUM LEVEL 9.2 MG/DL (8.5-10.1); CARBON DIOXIDE LEVEL 28 MEQ/L (21-32); CHLORIDE LEVEL 103 MEQ/L (98-107); CHOLESTEROL LEVEL 196 MG/DL (<200); CREATININE FOR GFR 0.89 MG/DL (0.70-1.30); GLOMERULAR FILTRATION RATE > 60.0 (>60); GLUCOSE, FASTING 129 MG/DL (70-105); POTASSIUM SERUM 4.1 MEQ/L (3.5-5.1); SODIUM LEVEL 138 MEQ/L (136-145); TOTAL PROTEIN 7.4 GM/DL (6.4-8.2); TRIGLYCERIDES LEVEL 203 MG/DL (<150)
== END ==
LOC: M LAB 08:17
PROVIDERS: ATTEND Nurse Practitioner Psychiatric/Mental Health
DX: F20.9 Schizophrenia, unspecified (principal)

== ENCOUNTER → 2016-12-29 | Outpatient (REF) | payer OTHER, MEDICAID ==
[~2016-12-29] MED LIST changes: +FLUO20CA19 PO; -FLUO20CA9 PO; -NAPR500T2 PO; +NAPR500T3 PO; -RISP2TAB30 PO; +RISP2TAB32 PO; -RISP3TAB18 PO; +RISP3TAB20 PO
[2016-12-29 14:08] LABS: ALBUMIN/GLOBULIN RATIO 1.08 (1.00-1.93); ALKALINE PHOSPHATASE 64 U/L (45-117); ALT/SGPT 87 U/L (12-78); ANION GAP 8 MEQ/L (8-16); AST/SGOT 28 U/L (15-37); BILIRUBIN,TOTAL 0.3 MG/DL (0.2-1.0); BLOOD UREA NITROGEN 4 MG/DL (7-18); CALCIUM LEVEL 10.2 MG/DL (8.5-10.1); CARBON DIOXIDE LEVEL 29 MEQ/L (21-32); CHLORIDE LEVEL 101 MEQ/L (98-107); CHOLESTEROL LEVEL 233 MG/DL (<200); CREATININE FOR GFR 1.05 MG/DL (0.70-1.30); GLOMERULAR FILTRATION RATE > 60.0 (>60); GLUCOSE, FASTING 121 MG/DL (70-105); POTASSIUM SERUM 4.5 MEQ/L (3.5-5.1); SODIUM LEVEL 138 MEQ/L (136-145); TOTAL PROTEIN 7.7 GM/DL (6.4-8.2); TRIGLYCERIDES LEVEL 267 MG/DL (<150)
== END ==
LOC: M LAB REF 12:31
PROVIDERS: ATTEND Nurse Practitioner Adult Health
DX: Z51.81 Encounter for therapeutic drug level monitoring (principal); Z79.899 Other long term (current) drug therapy

== ENCOUNTER → 2017-05-10 | Outpatient (CLI) | payer OTHER ==
[2017-05-10 08:22] LABS: ALBUMIN 3.8 GM/DL (3.2-5.2); ALBUMIN/GLOBULIN RATIO 0.95 (1.00-1.93); ALKALINE PHOSPHATASE 64 U/L (45-117); ALT/SGPT 132 U/L (12-78); ANION GAP 9 MEQ/L (8-16); AST/SGOT 55 U/L (7-37); BILIRUBIN,TOTAL 0.4 MG/DL (0.2-1.0); BLOOD UREA NITROGEN 7 MG/DL (7-18); CALCIUM LEVEL 9.7 MG/DL (8.5-10.1); CARBON DIOXIDE LEVEL 28 MEQ/L (21-32); CHLORIDE LEVEL 102 MEQ/L (98-107); CHOLESTEROL LEVEL 212 MG/DL (<200); CHOLESTEROL RISK RATIO 4.818 (<5); GLOMERULAR FILTRATION RATE > 60.0 (>60); GLUCOSE, FASTING 148 MG/DL (70-100); HDL CHOLESTEROL 44 MG/DL (>40); LDL CHOLESTEROL 131.4 MG/DL (<100); NON-HDL-C 168 MG/DL; POTASSIUM SERUM 4.2 MEQ/L (3.5-5.1); SODIUM LEVEL 139 MEQ/L (136-145); TOTAL PROTEIN 7.8 GM/DL (6.4-8.2); TRIGLYCERIDES LEVEL 183 MG/DL (<150)
[2017-05-10 08:52] LABS: ESTIMATED AVERAGE GLUCOSE 174 MG/DL (60-110); HEMOGLOBIN A1c 7.7 %
[2017-05-10 09:09] LABS: TOTAL 25(OH) VITAMIN D 10.9 NG/ML (30.0-100.0)
== END ==
LOC: M LAB 05:58
DX: Z00.00 Encounter for general adult medical examination without abnormal findings (principal)
CPT/HCPCS: 84443

== ENCOUNTER → 2017-08-10 | Outpatient (REF) | payer OTHER ==
[2017-08-10 13:03] LABS: ALBUMIN 3.6 GM/DL (3.2-5.2); ALBUMIN/GLOBULIN RATIO 0.86 (1.00-1.93); ALKALINE PHOSPHATASE 56 U/L (45-117); ALT/SGPT 55 U/L (12-78); ANION GAP 9 MEQ/L (8-16); AST/SGOT 18 U/L (7-37); BILIRUBIN,TOTAL 0.2 MG/DL (0.2-1.0); BLOOD UREA NITROGEN 3 MG/DL (7-18); CALCIUM LEVEL 9.7 MG/DL (8.5-10.1); CARBON DIOXIDE LEVEL 28 MEQ/L (21-32); CHLORIDE LEVEL 105 MEQ/L (98-107); CREATININE FOR GFR 0.75 MG/DL (0.70-1.30); GLOMERULAR FILTRATION RATE > 60.0 (>60); GLUCOSE, FASTING 140 MG/DL (70-100); POTASSIUM SERUM 4.1 MEQ/L (3.5-5.1); SODIUM LEVEL 142 MEQ/L (136-145); TOTAL PROTEIN 7.8 GM/DL (6.4-8.2)
[2017-08-10 13:43] LABS: ESTIMATED AVERAGE GLUCOSE 154 MG/DL (60-110)
[2017-08-10 13:52] LABS: HEPATITIS A ANTIBODY IGM NEGATIVE (NEGATIVE)
[2017-08-11 10:16] LABS: HEPATITIS B CORE ANTIBODY IGG Negative (Negative)
== END ==
LOC: M LAB REF 12:31
DX: R79.89 Other specified abnormal findings of blood chemistry (principal)

== ENCOUNTER → 2017-11-18 | Outpatient (CLI) | payer OTHER ==
[2017-11-18 12:26] LABS: HEMATOCRIT 44.7 % (42.0-52.0); HEMOGLOBIN 16.1 g/dl (13.5-17.5); MEAN CORPUSCULAR VOLUME 88.9 fl (80.0-96.0); PLATELET COUNT, AUTOMATED 319 10^3/uL (150-450); RED BLOOD COUNT 5.03 10^6/uL (4.30-6.10); RED CELL DISTRIBUTION WIDTH 12.3 % (11.5-14.5); WHITE BLOOD COUNT 16.4 10^3/uL (4.0-10.0)
[2017-11-18 12:55] LABS: ESTIMATED AVERAGE GLUCOSE 131 MG/DL (60-110); HEMOGLOBIN A1c 6.2 %
[2017-11-18 12:56] LABS: ALKALINE PHOSPHATASE 49 U/L (45-117); ALT/SGPT 55 U/L (12-78); ANION GAP 11 MEQ/L (8-16); AST/SGOT 22 U/L (7-37); BILIRUBIN,DIRECT 0.1 MG/DL (0.0-0.2); BILIRUBIN,TOTAL 0.4 MG/DL (0.2-1.0); BLOOD UREA NITROGEN 5 MG/DL (7-18); CALCIUM LEVEL 10.1 MG/DL (8.5-10.1); CARBON DIOXIDE LEVEL 25 MEQ/L (21-32); CHLORIDE LEVEL 101 MEQ/L (98-107); CREATININE FOR GFR 0.95 MG/DL (0.70-1.30); GLOMERULAR FILTRATION RATE > 60.0 (>60); GLUCOSE, FASTING 128 MG/DL (70-100); POTASSIUM SERUM 4.3 MEQ/L (3.5-5.1); SODIUM LEVEL 137 MEQ/L (136-145)
== END ==
LOC: M LAB 11:53
DX: Z79.899 Other long term (current) drug therapy (principal)
CPT/HCPCS: 82248

== ENCOUNTER → 2017-11-24 | Outpatient (REF) | payer OTHER ==
[2017-11-24 13:47] LABS: ALBUMIN/GLOBULIN RATIO 1.11 (1.00-1.93); ALKALINE PHOSPHATASE 47 U/L (45-117); ALT/SGPT 48 U/L (12-78); ANION GAP 12 MEQ/L (8-16); AST/SGOT 16 U/L (7-37); BILIRUBIN,TOTAL 0.3 MG/DL (0.2-1.0); BLOOD UREA NITROGEN 8 MG/DL (7-18); CALCIUM LEVEL 9.9 MG/DL (8.5-10.1); CARBON DIOXIDE LEVEL 23 MEQ/L (21-32); CHLORIDE LEVEL 103 MEQ/L (98-107); GLOMERULAR FILTRATION RATE > 60.0 (>60); GLUCOSE, FASTING 91 MG/DL (70-100); POTASSIUM SERUM 4.7 MEQ/L (3.5-5.1); SODIUM LEVEL 138 MEQ/L (136-145); TOTAL PROTEIN 7.6 GM/DL (6.4-8.2)
[2017-11-24 13:57] LABS: TOTAL 25(OH) VITAMIN D 36.3 NG/ML (30.0-100.0)
[2017-11-24 14:53] LABS: ESTIMATED AVERAGE GLUCOSE 126 MG/DL (60-110)
== END ==
LOC: M LAB REF 12:00
DX: R79.89 Other specified abnormal findings of blood chemistry (principal); E11.9 Type 2 diabetes mellitus without complications; E55.9 Vitamin D deficiency, unspecified

== ENCOUNTER → 2018-02-23 | Outpatient (REF) | payer OTHER ==
[~2018-02-23] MED LIST changes: +NAPR-885 PO; -NAPR500T3 PO
[2018-02-23 19:35] LABS: MALB URINE SIEMENS 11.2 MG/L; MAU/CREAT RATIO 4.3 MCG/MG (0.0-30.0)
[2018-02-24 14:20] LABS: ALBUMIN 3.7 GM/DL (3.2-5.2); ALT/SGPT 82 U/L (12-78); BILIRUBIN,TOTAL 0.5 MG/DL (0.2-1.0); BLOOD UREA NITROGEN 6 MG/DL (7-18); CALCIUM LEVEL 9.9 MG/DL (8.5-10.1); CARBON DIOXIDE LEVEL 28 MEQ/L (21-32); CHLORIDE LEVEL 101 MEQ/L (98-107); CREATININE FOR GFR 0.88 MG/DL (0.70-1.30); GLOMERULAR FILTRATION RATE > 60.0 (>60); GLUCOSE, FASTING 155 MG/DL (70-100); SODIUM LEVEL 137 MEQ/L (136-145); TOTAL PROTEIN 8.2 GM/DL (6.4-8.2)
[2018-02-24 14:43] LABS: HEMOGLOBIN A1c 6.6 %
== END ==
LOC: M LAB REF 18:38
PROVIDERS: ATTEND Nurse Practitioner Adult Health
DX: E11.9 Type 2 diabetes mellitus without complications (principal)

== ENCOUNTER → 2018-06-01 | Outpatient (REF) | payer OTHER, MEDICAID ==
[~2018-06-01] MED LIST changes: -NICO21DI5 TD; +NICO21DI6 TD
[2018-06-01 18:29] LABS: ALBUMIN 3.9 GM/DL (3.2-5.2); ALT/SGPT 45 U/L (12-78); BILIRUBIN,TOTAL 0.3 MG/DL (0.2-1.0); BLOOD UREA NITROGEN 3 MG/DL (7-18); CALCIUM LEVEL 9.4 MG/DL (8.5-10.1); CARBON DIOXIDE LEVEL 26 MEQ/L (21-32); CHLORIDE LEVEL 100 MEQ/L (98-107); CREATININE FOR GFR 1.07 MG/DL (0.70-1.30); GLOMERULAR FILTRATION RATE > 60.0 (>60); GLUCOSE, FASTING 189 MG/DL (70-100); POTASSIUM SERUM 3.9 MEQ/L (3.5-5.1); SODIUM LEVEL 136 MEQ/L (136-145); TOTAL PROTEIN 7.7 GM/DL (6.4-8.2)
[2018-06-01 18:37] LABS: TOTAL 25(OH) VITAMIN D 37.3 NG/ML (30.0-100.0)
[2018-06-01 18:58] LABS: HEMOGLOBIN A1c 6.3 %
== END ==
LOC: M LAB REF 17:13
PROVIDERS: ATTEND Nurse Practitioner Adult Health
DX: E11.9 Type 2 diabetes mellitus without complications (principal); R79.89 Other specified abnormal findings of blood chemistry; F32.9 Major depressive disorder, single episode, unspecified

== ENCOUNTER → 2018-09-13 | Outpatient (REF) | payer OTHER, MEDICAID ==
[~2018-09-13] MED LIST changes: +OXCA1TAB OR; -OXCA30TA OR
[2018-09-13 18:31] LABS: ALBUMIN 4.2 GM/DL (3.2-5.2); ALT/SGPT 64 U/L (12-78); BILIRUBIN,TOTAL 0.5 MG/DL (0.2-1.0); BLOOD UREA NITROGEN 7 MG/DL (7-18); CARBON DIOXIDE LEVEL 27 MEQ/L (21-32); CHLORIDE LEVEL 98 MEQ/L (98-107); CREATININE FOR GFR 1.02 MG/DL (0.70-1.30); GLOMERULAR FILTRATION RATE > 60.0 (>60); GLUCOSE, FASTING 143 MG/DL (70-100); POTASSIUM SERUM 3.7 MEQ/L (3.5-5.1); SODIUM LEVEL 134 MEQ/L (136-145); TOTAL PROTEIN 8.1 GM/DL (6.4-8.2)
[2018-09-13 18:38] LABS: TOTAL 25(OH) VITAMIN D 67.5 NG/ML (30.0-100.0)
[2018-09-13 18:50] LABS: HEMOGLOBIN A1c 6.4 %
== END ==
LOC: M LAB REF 17:56
PROVIDERS: ATTEND Nurse Practitioner Adult Health
DX: E11.9 Type 2 diabetes mellitus without complications (principal)

== ENCOUNTER → 2018-11-16 | Outpatient (CLI) | payer OTHER ==
[2018-11-16 07:59] LABS: HEMATOCRIT 45.3 % (42.0-52.0); HEMOGLOBIN 16.1 g/dl (13.5-17.5); MEAN CORPUSCULAR HEMOGLOBIN 31.7 pg (27.0-33.0); MEAN CORPUSCULAR HGB CONC 35.5 g/dl (32.0-36.5); MEAN CORPUSCULAR VOLUME 89.2 fl (80.0-96.0); PLATELET COUNT, AUTOMATED 355 10^3/uL (150-450); RED BLOOD COUNT 5.08 10^6/uL (4.30-6.10); WHITE BLOOD COUNT 8.8 10^3/uL (4.0-10.0)
[2018-11-16 08:18] LABS: HEMOGLOBIN A1c 6.3 %
[2018-11-16 08:31] LABS: BILIRUBIN,DIRECT 0.1 MG/DL (0.0-0.2); BILIRUBIN,TOTAL 0.3 MG/DL (0.2-1.0); CHOLESTEROL RISK RATIO 4.906 (<5); TOTAL PROTEIN 7.8 GM/DL (6.4-8.2); VALPROIC ACID (DEPAKOTE) 97.6 UG/ML (50.0-100.0)
== END ==
LOC: M LAB 06:48
PROVIDERS: ATTEND Nurse Practitioner Psychiatric/Mental Health
DX: Z79.899 Other long term (current) drug therapy (principal)

== ENCOUNTER → 2018-12-21 | Outpatient (REF) | payer OTHER ==
[2018-12-21 14:08] LABS: ALBUMIN 3.8 GM/DL (3.2-5.2); ALT/SGPT 57 U/L (12-78); BILIRUBIN,TOTAL 0.4 MG/DL (0.2-1.0); BLOOD UREA NITROGEN 4 MG/DL (7-18); CALCIUM LEVEL 9.9 MG/DL (8.5-10.1); CARBON DIOXIDE LEVEL 28 MEQ/L (21-32); CHLORIDE LEVEL 94 MEQ/L (98-107); CREATININE FOR GFR 1.04 MG/DL (0.70-1.30); GLOMERULAR FILTRATION RATE > 60.0 (>60); GLUCOSE, FASTING 216 MG/DL (70-100); POTASSIUM SERUM 3.5 MEQ/L (3.5-5.1); SODIUM LEVEL 131 MEQ/L (136-145); TOTAL 25(OH) VITAMIN D 61.9 NG/ML (30.0-100.0); TOTAL PROTEIN 7.8 GM/DL (6.4-8.2)
[2018-12-21 14:13] LABS: HEMOGLOBIN A1c 6.4 %
== END ==
LOC: M LAB REF 12:31
PROVIDERS: ATTEND Nurse Practitioner Adult Health
DX: Z23 Encounter for immunization (principal); I10 Essential (primary) hypertension; E55.9 Vitamin D deficiency, unspecified; R79.89 Other specified abnormal findings of blood chemistry; E78.5 Hyperlipidemia, unspecified; E11.9 Type 2 diabetes mellitus without complications

== ENCOUNTER → 2019-06-20 | Outpatient (REF) | payer OTHER ==
[~2019-06-20] MED LIST changes: -FLUO20CA19 PO; +FLUO20CA22 PO; +QUET100T2 PO; -QUET1TAB8 PO; -TRAZ10TA PO; +TRAZ1TAB12 PO
[2019-06-20 16:47] LABS: ALT/SGPT 78 U/L (12-78); BILIRUBIN,TOTAL 0.5 MG/DL (0.2-1.0); BLOOD UREA NITROGEN 5 MG/DL (7-18); CALCIUM LEVEL 10.3 MG/DL (8.5-10.1); CARBON DIOXIDE LEVEL 31 MEQ/L (21-32); CHLORIDE LEVEL 94 MEQ/L (98-107); CHOLESTEROL LEVEL 241 MG/DL (<200); CREATININE FOR GFR 0.83 MG/DL (0.70-1.30); GLOMERULAR FILTRATION RATE > 60.0 (>60); GLUCOSE, FASTING 135 MG/DL (70-100); HDL CHOLESTEROL 50 MG/DL (>40); LDL CHOLESTEROL 144 MG/DL (<100); NON-HDL-C 191 MG/DL; POTASSIUM SERUM 3.6 MEQ/L (3.5-5.1); SODIUM LEVEL 132 MEQ/L (136-145); TOTAL PROTEIN 7.9 GM/DL (6.4-8.2); TRIGLYCERIDES LEVEL 235 MG/DL (<150)
[2019-06-20 16:53] LABS: TOTAL 25(OH) VITAMIN D 43.3 NG/ML (30.0-100.0)
[2019-06-20 17:06] LABS: HEMOGLOBIN A1c 6.8 %
== END ==
LOC: M LAB REF 16:09
PROVIDERS: ATTEND Nurse Practitioner Adult Health
DX: E11.9 Type 2 diabetes mellitus without complications (principal); I10 Essential (primary) hypertension; R79.89 Other specified abnormal findings of blood chemistry; E78.5 Hyperlipidemia, unspecified; E55.9 Vitamin D deficiency, unspecified

== ENCOUNTER → 2019-07-26 | Outpatient (CLI) | payer OTHER ==
[2019-07-26 11:24] LABS: BASO # 0.1 10^3/uL (0.0-0.2); BASO % 0.8 % (0.0-1.0); EOS # 0.7 10^3/uL (0.0-0.5); EOS % 8.5 % (0.0-3.0); HEMATOCRIT 46.7 % (42.0-52.0); HEMOGLOBIN 16.5 g/dl (13.5-17.5); LYMPH # 2.6 10^3/uL (1.5-5.0); MEAN CORPUSCULAR HEMOGLOBIN 32.2 pg (27.0-33.0); MEAN CORPUSCULAR HGB CONC 35.3 g/dl (32.0-36.5); MEAN CORPUSCULAR VOLUME 91.2 fl (80.0-96.0); MONO # 0.8 10^3/uL (0.0-0.8); MONO % 9.7 % (0.0-5.0); NEUTROPHILS # 3.7 10^3/uL (1.5-8.5); NEUTROPHILS % 47.6 % (36.0-66.0); PLATELET COUNT, AUTOMATED 292 10^3/uL (150-450); RED BLOOD COUNT 5.12 10^6/uL (4.30-6.10); WHITE BLOOD COUNT 7.8 10^3/uL (4.0-10.0)
[2019-07-26 12:22] LABS: ALBUMIN 4.1 GM/DL (3.2-5.2); ALT/SGPT 76 U/L (12-78); BILIRUBIN,TOTAL 0.7 MG/DL (0.2-1.0); BLOOD UREA NITROGEN 6 MG/DL (7-18); CARBON DIOXIDE LEVEL 32 MEQ/L (21-32); CHLORIDE LEVEL 98 MEQ/L (98-107); CHOLESTEROL LEVEL 215 MG/DL (<200); CHOLESTEROL RISK RATIO 4.574 (<5); CREATININE FOR GFR 0.97 MG/DL (0.70-1.30); FREE T4 1.26 NG/DL (0.76-1.46); GLOMERULAR FILTRATION RATE > 60.0 (>60); GLUCOSE, FASTING 113 MG/DL (70-100); HDL CHOLESTEROL 47 MG/DL (>40); LDL CHOLESTEROL 123 MG/DL (<100); NON-HDL-C 168 MG/DL; POTASSIUM SERUM 3.6 MEQ/L (3.5-5.1); SODIUM LEVEL 137 MEQ/L (136-145); TOTAL PROTEIN 8.3 GM/DL (6.4-8.2); TRIGLYCERIDES LEVEL 227 MG/DL (<150)
[2019-07-26 12:58] LABS: HEMOGLOBIN A1c 6.4 %
== END ==
LOC: M LAB 10:18
PROVIDERS: ATTEND Psychiatry & Neurology Child & Adolescent Psychiatry
DX: F20.9 Schizophrenia, unspecified (principal)

== ENCOUNTER → 2019-12-19 | Outpatient (REF) | payer OTHER ==
[2019-12-19 18:12] LABS: HEMOGLOBIN A1c 6.2 %
[2019-12-19 18:17] LABS: ALBUMIN 3.6 GM/DL (3.2-5.2); ALT/SGPT 62 U/L (12-78); BILIRUBIN,TOTAL 0.4 MG/DL (0.2-1.0); BLOOD UREA NITROGEN 6 MG/DL (7-18); CALCIUM LEVEL 9.6 MG/DL (8.5-10.1); CARBON DIOXIDE LEVEL 29 MEQ/L (21-32); CHLORIDE LEVEL 98 MEQ/L (98-107); CREATININE FOR GFR 0.89 MG/DL (0.70-1.30); GLOMERULAR FILTRATION RATE > 60.0 (>60); GLUCOSE, FASTING 139 MG/DL (70-100); POTASSIUM SERUM 3.9 MEQ/L (3.5-5.1); SODIUM LEVEL 135 MEQ/L (136-145); TOTAL PROTEIN 7.5 GM/DL (6.4-8.2)
== END ==
LOC: M LAB REF 16:48
PROVIDERS: ATTEND Nurse Practitioner Adult Health
DX: I10 Essential (primary) hypertension (principal); E11.9 Type 2 diabetes mellitus without complications

== ENCOUNTER → 2022-02-24 | Outpatient (REF) | payer OTHER ==
[~2022-02-24] MED LIST changes: +RISP-9 PO; -RISP2TAB3 PO
[2022-02-24 12:38] LABS: ALBUMIN 3.7 G/DL (3.2-5.2); ALKALINE PHOSPHATASE 46 U/L (46-116); ALT/SGPT 60 U/L (7.0-40); AST/SGOT 26 U/L (<34); BILIRUBIN,TOTAL 0.5 MG/DL (0.3-1.2); BLOOD UREA NITROGEN 5 MG/DL (9-23); CALCIUM LEVEL 9.9 MG/DL (8.5-10.1); CARBON DIOXIDE LEVEL 29 MMOL/L (20-31); CHLORIDE LEVEL 103 MMOL/L (98-107); CHOLESTEROL LEVEL 180 MG/DL (<200); CHOLESTEROL RISK RATIO 4.77 (<5); GLOMERULAR FILTRATION RATE > 60.0 (>60); GLUCOSE, FASTING 94 MG/DL (60-100); HDL CHOLESTEROL 37.7 MG/DL (>40); LDL CHOLESTEROL 103.7 MG/DL (<100); NON-HDL-C 142 MG/DL; POTASSIUM SERUM 3.9 MMOL/L (3.5-5.1); SODIUM LEVEL 140 MMOL/L (136-145); TOTAL PROTEIN 6.7 G/DL (5.7-8.2); TRIGLYCERIDES LEVEL 193 MG/DL (<150)
[2022-02-24 12:40] LABS: THYROID STIMULATING HORMONE 1.789 uIU/ML (0.55-4.78)
[2022-02-24 13:26] LABS: HEMOGLOBIN A1c 5.7 % (4.0-6.0)
== END ==
LOC: M LAB REF 11:20
PROVIDERS: ATTEND Family Medicine Addiction Medicine
DX: R73.03 Prediabetes (principal)

== ENCOUNTER 2022-09-30 10:35 | Emergency (ER) | payer OTHER ==
[~2022-09-30] VITALS: Ht 172.7 cm; Wt 80.4 kg
[2022-09-30 10:35] VITALS: BP 133/80; TEMP 97.3; O2SAT 99
[2022-09-30] MEDS ORDERED: METF500T13 (10:45)
[2022-09-30] MEDS ORDERED: DIVA500T94 (10:45)
[2022-09-30] MEDS ORDERED: VIVI380I (10:45)
[2022-09-30] MEDS ORDERED: HYDR-3490 (10:45)
[2022-09-30 12:45] LABS: VENOUS HCO3 26.4 MMOL/L (23.0-27.0); VENOUS O2 SATURATION 93.6 % (60.0-80.0); VENOUS PARTIAL PRESSURE CO2 40.5 mmHg (38.0-50.0); VENOUS PARTIAL PRESSURE O2 63.3 mmHg (30.0-50.0); VENOUS PH 7.432 UNITS (7.330-7.430); VENOUS STANDARD HCO3 26.1 MMOL/L; VENOUS TOTAL CO2 27.6 MMOL/L (24.0-28.0)
[2022-09-30] MEDS ORDERED: ISOVUE-370 76% 100ML VIAL As Ordered ONE (12:49)
[2022-09-30] MEDS ORDERED: NS 1,000 ML IV ONE (12:55)
[2022-09-30 12:58] LABS: BASO # 0.1 10^3/uL (0.0-0.2); BASO % 0.9 % (0.0-1.0); EOS # 0.5 10^3/uL (0.0-0.5); EOS % 7.2 % (0.0-3.0); HEMATOCRIT 42.7 % (42.0-52.0); HEMOGLOBIN 15.2 g/dl (13.5-17.5); LYMPH # 2.1 10^3/uL (1.5-5.0); LYMPH % 33.2 % (24.0-44.0); MEAN CORPUSCULAR HEMOGLOBIN 31.1 pg (27.0-33.0); MEAN CORPUSCULAR HGB CONC 35.6 g/dl (32.0-36.5); MEAN CORPUSCULAR VOLUME 87.3 fl (80.0-96.0); MONO # 0.6 10^3/uL (0.0-0.8); MONO % 9.9 % (2.0-8.0); NEUTROPHILS # 3.1 10^3/uL (1.5-8.5); NEUTROPHILS % 48.5 % (36.0-66.0); PLATELET COUNT, AUTOMATED 376 10^3/uL (150-450); RED BLOOD COUNT 4.89 10^6/uL (4.30-6.10); WHITE BLOOD COUNT 6.4 10^3/uL (4.0-10.0)
[2022-09-30 13:11] LABS: INR 0.87
[2022-09-30 13:17] LABS: MAGNESIUM LEVEL 1.8 MG/DL (1.8-2.4)
[2022-09-30 13:19] LABS: CK-MB VALUE MASS < 1.0 NG/ML (<3.6)
[2022-09-30 13:22] LABS: THYROID STIMULATING HORMONE 1.409 uIU/ML (0.55-4.78)
[2022-09-30 13:23] LABS: FREE T4 1.37 NG/DL (0.89-1.76)
[2022-09-30 13:24] LABS: D-DIMER QUANT < 270 ng/ml (<500)
[2022-09-30 13:25] LABS: CPK CREATINE PHOSPHOKINASE 148 U/L (46-171); MB/CK RELATIVE INDEX 0.67 (< OR =4)
[2022-09-30 13:28] LABS: AMPHETAMINES LEVEL URINE NEGATIVE (NEGATIVE); BARBITURATES URINE NEGATIVE (NEGATIVE); BENZODIAZEPINES URINE NEGATIVE (NEGATIVE); CANNABINOIDS URINE NEGATIVE (NEGATIVE); COCAINE METABOLITE URINE NEGATIVE (NEGATIVE); METHADONE URINE NEGATIVE (NEGATIVE); OPIATES URINE NEGATIVE (NEGATIVE); PHENCYCLIDINE URINE NEGATIVE (NEGATIVE)
== END 2022-09-30 15:10 | disposition home or self-care (01) ==
LOC: M ED 10:35
DX: G24.01 Drug induced subacute dyskinesia (principal); I10 Essential (primary) hypertension; E11.9 Type 2 diabetes mellitus without complications; F20.9 Schizophrenia, unspecified; F32.A Depression, unspecified; F17.210 Nicotine dependence, cigarettes, uncomplicated; Z79.899 Other long term (current) drug therapy; Z79.84 Long term (current) use of oral hypoglycemic drugs
CPT/HCPCS: 36415; 70450; 70496; 70498; 80047; 80307; 82550; 82553; 82803; 83735; 84439; 84443; 85025; 85379; 85610; 85730; 93005; 99284; G0480; Q9967

== ENCOUNTER → 2022-10-02 | Outpatient (CLI) | payer OTHER ==
[~2022-10-02] MED LIST changes: +DIVA500T94; +HYDR-3490; +METF500T13; +VIVI380I
[2022-10-02 10:57] LABS: HEMATOCRIT 40.2 % (42.0-52.0); HEMOGLOBIN 14.5 g/dl (13.5-17.5); MEAN CORPUSCULAR HEMOGLOBIN 31.5 pg (27.0-33.0); MEAN CORPUSCULAR HGB CONC 36.1 g/dl (32.0-36.5); MEAN CORPUSCULAR VOLUME 87.4 fl (80.0-96.0); PLATELET COUNT, AUTOMATED 358 10^3/uL (150-450); WHITE BLOOD COUNT 8.5 10^3/uL (4.0-10.0)
[2022-10-02 11:29] LABS: VALPROIC ACID (DEPAKOTE) 63.9 UG/ML (50.0-100.0)
[2022-10-02 11:36] LABS: ALKALINE PHOSPHATASE 45 U/L (46-116); ALT/SGPT 22 U/L (7.0-40); AST/SGOT 12 U/L (<34); BILIRUBIN,TOTAL 0.4 MG/DL (0.3-1.2); BLOOD UREA NITROGEN < 5 MG/DL (9-23); CALCIUM LEVEL 9.8 MG/DL (8.5-10.1); CARBON DIOXIDE LEVEL 28 MMOL/L (20-31); CHLORIDE LEVEL 91 MMOL/L (98-107); CREATININE FOR GFR 0.59 MG/DL (0.70-1.30); GLOMERULAR FILTRATION RATE > 60.0 (>60); GLUCOSE, FASTING 149 MG/DL (60-100); POTASSIUM SERUM 3.5 MMOL/L (3.5-5.1); SODIUM LEVEL 127 MMOL/L (136-145); TOTAL 25(OH) VITAMIN D 82.5 NG/ML (20.0-100.0)
== END ==
LOC: M LAB 10:27
PROVIDERS: ATTEND Nurse Practitioner Psychiatric/Mental Health
DX: F20.9 Schizophrenia, unspecified (principal)

== ENCOUNTER 2022-10-06 14:18 | Emergency (ER) | payer OTHER ==
[~2022-10-06] VITALS: Ht 172.7 cm; Wt 80.8 kg
[2022-10-06 19:03] VITALS: TEMP 98.8
[2022-10-06 19:45] LABS: APPEARANCE, URINE CLEAR (CLEAR); BACTERIA, URINE AUTO NEGATIVE (NEGATIVE); BILIRUBIN, URINE AUTO NEGATIVE (NEGATIVE); BLOOD, URINE BLOOD NEGATIVE (NEGATIVE); COLOR, URINE YELLOW (YELLOW); GLUCOSE, URINE (UA) AUTO NEGATIVE (NEGATIVE); KETONE, URINE AUTO TRACE mg/dL (NEGATIVE); LEUKOCYTE ESTERASE, URINE AUTO NEGATIVE (NEGATIVE); NITRITE, URINE AUTO NEGATIVE (NEGATIVE); PROTEIN, URINE AUTO NEGATIVE (NEGATIVE); RBC, URINE AUTO 0 /HPF (0-3); SPECIFIC GRAVITY URINE AUTO 1.006 (1.002-1.035); SQUAMOUS EPITHELIAL CELL UR AU 0 /HPF (0-6); WBC, URINE AUTO 0 /HPF (0-3)
[2022-10-06 19:48] LABS: BASO # 0.1 10^3/uL (0.0-0.2); BASO % 0.6 % (0.0-1.0); EOS # 0.8 10^3/uL (0.0-0.5); HEMATOCRIT 40.2 % (42.0-52.0); HEMOGLOBIN 14.6 g/dl (13.5-17.5); LYMPH # 2.5 10^3/uL (1.5-5.0); LYMPH % 28.8 % (24.0-44.0); MEAN CORPUSCULAR HEMOGLOBIN 31.5 pg (27.0-33.0); MEAN CORPUSCULAR HGB CONC 36.3 g/dl (32.0-36.5); MEAN CORPUSCULAR VOLUME 86.6 fl (80.0-96.0); MONO # 0.6 10^3/uL (0.0-0.8); NEUTROPHILS # 4.6 10^3/uL (1.5-8.5); NEUTROPHILS % 54.4 % (36.0-66.0); PLATELET COUNT, AUTOMATED 354 10^3/uL (150-450); RED BLOOD COUNT 4.64 10^6/uL (4.30-6.10); WHITE BLOOD COUNT 8.5 10^3/uL (4.0-10.0)
[2022-10-06 20:02] LABS: OSMOLALITY URINE 189 MOSM/KG (50-1400)
[2022-10-06 20:14] LABS: AMPHETAMINES LEVEL URINE NEGATIVE (NEGATIVE); BARBITURATES URINE NEGATIVE (NEGATIVE); BENZODIAZEPINES URINE NEGATIVE (NEGATIVE); CANNABINOIDS URINE NEGATIVE (NEGATIVE); COCAINE METABOLITE URINE NEGATIVE (NEGATIVE); METHADONE URINE NEGATIVE (NEGATIVE); OPIATES URINE NEGATIVE (NEGATIVE); PHENCYCLIDINE URINE NEGATIVE (NEGATIVE)
[2022-10-06 20:16] LABS: VALPROIC ACID (DEPAKOTE) 44.6 UG/ML (50.0-100.0)
[2022-10-06 20:17] LABS: CPK CREATINE PHOSPHOKINASE 397 U/L (46-171); PTH INTACT 54.4 PG/ML (18.5-88.0)
[2022-10-06 20:20] LABS: ALBUMIN 3.9 G/DL (3.2-5.2); ALKALINE PHOSPHATASE 43 U/L (46-116); ALT/SGPT 23 U/L (7.0-40); AST/SGOT 19 U/L (<34); BILIRUBIN,DIRECT 0.1 MG/DL (<0.4); BILIRUBIN,TOTAL 0.4 MG/DL (0.3-1.2); BLOOD UREA NITROGEN < 5 MG/DL (9-23); CALCIUM LEVEL 10.1 MG/DL (8.5-10.1); CARBON DIOXIDE LEVEL 30 MMOL/L (20-31); CHLORIDE LEVEL 92 MMOL/L (98-107); CREATININE FOR GFR 0.62 MG/DL (0.70-1.30); FREE T4 1.09 NG/DL (0.89-1.76); GLOMERULAR FILTRATION RATE > 60.0 (>60); GLUCOSE, FASTING 103 MG/DL (60-100); POTASSIUM SERUM 3.8 MMOL/L (3.5-5.1); PROLACTIN 18.69 NG/ML (2.1-17.7); SODIUM LEVEL 129 MMOL/L (136-145); THYROID STIMULATING HORMONE 3.262 uIU/ML (0.55-4.78)
[2022-10-06 20:28] LABS: OSMOLALITY SERUM 261 MOSM/KG (275-295)
[2022-10-06 22:32] VITALS: BP 129/77; O2SAT 98
== END 2022-10-06 22:55 | disposition home or self-care (01) ==
LOC: M ED 14:18
DX: E87.1 Hypo-osmolality and hyponatremia (principal); R63.1 Polydipsia; E11.9 Type 2 diabetes mellitus without complications; I10 Essential (primary) hypertension; F20.9 Schizophrenia, unspecified; F25.9 Schizoaffective disorder, unspecified; F31.9 Bipolar disorder, unspecified; Z79.899 Other long term (current) drug therapy; Z79.84 Long term (current) use of oral hypoglycemic drugs

== ENCOUNTER → 2022-10-14 | Outpatient (REF) | payer OTHER ==
[2022-10-15 12:14] LABS: BLOOD UREA NITROGEN 7 MG/DL (9-23); CALCIUM LEVEL 10.6 MG/DL (8.5-10.1); CARBON DIOXIDE LEVEL 29 MMOL/L (20-31); CHLORIDE LEVEL 97 MMOL/L (98-107); CHOLESTEROL LEVEL 197 MG/DL (<200); CHOLESTEROL RISK RATIO 3.53 (<5); CREATININE FOR GFR 0.61 MG/DL (0.70-1.30); GLOMERULAR FILTRATION RATE > 60.0 (>60); GLUCOSE, FASTING 94 MG/DL (60-100); HDL CHOLESTEROL 55.7 MG/DL (>40); LDL CHOLESTEROL 102.7 MG/DL (<100); NON-HDL-C 141.3 MG/DL; POTASSIUM SERUM 5.2 MMOL/L (3.5-5.1); SODIUM LEVEL 134 MMOL/L (136-145); TRIGLYCERIDES LEVEL 193 MG/DL (<150)
[2022-10-15 12:17] LABS: HEMOGLOBIN A1c 6.1 % (4.0-6.0)
== END ==
LOC: M LAB REF 11:12
PROVIDERS: ATTEND Nurse Practitioner Family
DX: E87.1 Hypo-osmolality and hyponatremia (principal); E78.5 Hyperlipidemia, unspecified; R73.03 Prediabetes

== ENCOUNTER → 2022-10-15 | Outpatient (REF) | payer OTHER ==
[2022-10-15 18:19] LABS: BASO # 0.1 10^3/uL (0.0-0.2); BASO % 0.6 % (0.0-1.0); EOS # 0.4 10^3/uL (0.0-0.5); EOS % 3.6 % (0.0-3.0); HEMATOCRIT 44.4 % (42.0-52.0); HEMOGLOBIN 15.1 g/dl (13.5-17.5); LYMPH # 2.4 10^3/uL (1.5-5.0); LYMPH % 23.6 % (24.0-44.0); MEAN CORPUSCULAR HEMOGLOBIN 30.9 pg (27.0-33.0); MEAN CORPUSCULAR VOLUME 90.8 fl (80.0-96.0); MONO # 0.8 10^3/uL (0.0-0.8); MONO % 7.8 % (2.0-8.0); NEUTROPHILS # 6.6 10^3/uL (1.5-8.5); NEUTROPHILS % 64.1 % (36.0-66.0); PLATELET COUNT, AUTOMATED 343 10^3/uL (150-450); RED BLOOD COUNT 4.89 10^6/uL (4.30-6.10); WHITE BLOOD COUNT 10.3 10^3/uL (4.0-10.0)
[2022-10-15 18:43] LABS: FREE T4 1.25 NG/DL (0.89-1.76); THYROID STIMULATING HORMONE 1.577 uIU/ML (0.55-4.78)
[2022-10-15 18:48] LABS: BLOOD UREA NITROGEN 8 MG/DL (9-23); CALCIUM LEVEL 10.3 MG/DL (8.5-10.1); CARBON DIOXIDE LEVEL 30 MMOL/L (20-31); CHLORIDE LEVEL 99 MMOL/L (98-107); GLOMERULAR FILTRATION RATE > 60.0 (>60); GLUCOSE, FASTING 107 MG/DL (60-100); POTASSIUM SERUM 4.1 MMOL/L (3.5-5.1); SODIUM LEVEL 136 MMOL/L (136-145)
== END ==
LOC: M LAB REF 16:14
PROVIDERS: ATTEND Family Medicine Addiction Medicine
DX: E87.1 Hypo-osmolality and hyponatremia (principal)

== ENCOUNTER → 2022-10-15 | Outpatient (REF) | payer OTHER | LOC: M LAB REF 16:07 | PROVIDERS: ATTEND Family Medicine Addiction Medicine | DX: E87.1 Hypo-osmolality and hyponatremia (principal) ==

== ENCOUNTER → 2022-10-20 | Outpatient (REF) | payer OTHER ==
[2022-10-20 17:27] LABS: ALBUMIN 3.9 G/DL (3.2-5.2); ALKALINE PHOSPHATASE 48 U/L (46-116); ALT/SGPT 28 U/L (7.0-40); AST/SGOT 17 U/L (<34); BILIRUBIN,TOTAL 0.4 MG/DL (0.3-1.2); BLOOD UREA NITROGEN < 5 MG/DL (9-23); CALCIUM LEVEL 10.3 MG/DL (8.5-10.1); CARBON DIOXIDE LEVEL 28 MMOL/L (20-31); CHLORIDE LEVEL 101 MMOL/L (98-107); CHOLESTEROL LEVEL 190 MG/DL (<200); CHOLESTEROL RISK RATIO 3.78 (<5); CREATININE FOR GFR 0.73 MG/DL (0.70-1.30); GLOMERULAR FILTRATION RATE > 60.0 (>60); GLUCOSE, FASTING 128 MG/DL (60-100); HDL CHOLESTEROL 50.2 MG/DL (>40); LDL CHOLESTEROL 105.6 MG/DL (<100); NON-HDL-C 139.8 MG/DL; POTASSIUM SERUM 4.4 MMOL/L (3.5-5.1); SODIUM LEVEL 137 MMOL/L (136-145); THYROID STIMULATING HORMONE 0.982 uIU/ML (0.55-4.78); TOTAL 25(OH) VITAMIN D 62.2 NG/ML (20.0-100.0); TOTAL PROTEIN 7.4 G/DL (5.7-8.2); TRIGLYCERIDES LEVEL 171 MG/DL (<150)
[2022-10-20 17:58] LABS: HEMOGLOBIN A1c 6.5 % (4.0-6.0)
== END ==
LOC: M LAB REF 16:44
PROVIDERS: ATTEND Family Medicine Addiction Medicine
DX: E55.9 Vitamin D deficiency, unspecified (principal); R73.03 Prediabetes

== ENCOUNTER → 2022-10-25 | Outpatient (REF) | payer OTHER ==
[2022-10-26 13:17] LABS: BLOOD UREA NITROGEN 5 MG/DL (9-23); CALCIUM LEVEL 10.1 MG/DL (8.5-10.1); CARBON DIOXIDE LEVEL 29 MMOL/L (20-31); CHLORIDE LEVEL 101 MMOL/L (98-107); CREATININE FOR GFR 0.75 MG/DL (0.70-1.30); GLOMERULAR FILTRATION RATE > 60.0 (>60); GLUCOSE, FASTING 109 MG/DL (60-100); POTASSIUM SERUM 4.1 MMOL/L (3.5-5.1); SODIUM LEVEL 137 MMOL/L (136-145)
== END ==
LOC: M LAB REF 12:36
PROVIDERS: ATTEND Nurse Practitioner Family
DX: E87.1 Hypo-osmolality and hyponatremia (principal); M62.81 Muscle weakness (generalized)

== ENCOUNTER → 2023-02-23 | Outpatient (REF) | payer OTHER ==
[2023-02-23 13:18] LABS: FREE T4 1.19 NG/DL (0.89-1.76); THYROID STIMULATING HORMONE 3.483 uIU/ML (0.55-4.78)
[2023-02-23 13:19] LABS: ALBUMIN 4.1 G/DL (3.2-5.2); ALKALINE PHOSPHATASE 43 U/L (46-116); ALT/SGPT 19 U/L (7.0-40); AST/SGOT 11 U/L (<34); BILIRUBIN,TOTAL 0.7 MG/DL (0.3-1.2); BLOOD UREA NITROGEN < 5 MG/DL (9-23); CALCIUM LEVEL 10.7 MG/DL (8.5-10.1); CARBON DIOXIDE LEVEL 29 MMOL/L (20-31); CHLORIDE LEVEL 104 MMOL/L (98-107); CHOLESTEROL LEVEL 189 MG/DL (<200); CHOLESTEROL RISK RATIO 4.68 (<5); CREATININE FOR GFR 0.63 MG/DL (0.70-1.30); GLOMERULAR FILTRATION RATE > 60.0 (>60); GLUCOSE, FASTING 101 MG/DL (60-100); HDL CHOLESTEROL 40.3 MG/DL (>40); LDL CHOLESTEROL 120.5 MG/DL (<100); NON-HDL-C 148.7 MG/DL; POTASSIUM SERUM 3.9 MMOL/L (3.5-5.1); SODIUM LEVEL 135 MMOL/L (136-145); TOTAL PROTEIN 7.1 G/DL (5.7-8.2); TRIGLYCERIDES LEVEL 141 MG/DL (<150)
[2023-02-23 13:24] LABS: HEMOGLOBIN A1c 5.2 % (4.0-6.0)
== END ==
LOC: M LAB REF 12:15
PROVIDERS: ATTEND Family Medicine Addiction Medicine
DX: E11.9 Type 2 diabetes mellitus without complications (principal)

== ENCOUNTER 2023-04-16 16:07 | Emergency (ER) | payer OTHER ==
[2023-04-16] MEDS ORDERED: BENZ0.5T2 (16:16)
[2023-04-16 18:25] LABS: AMPHETAMINES LEVEL URINE NEGATIVE (NEGATIVE); BARBITURATES URINE NEGATIVE (NEGATIVE); BENZODIAZEPINES URINE NEGATIVE (NEGATIVE); CANNABINOIDS URINE NEGATIVE (NEGATIVE); COCAINE METABOLITE URINE NEGATIVE (NEGATIVE); METHADONE URINE NEGATIVE (NEGATIVE); OPIATES URINE NEGATIVE (NEGATIVE); PHENCYCLIDINE URINE NEGATIVE (NEGATIVE)
[2023-04-16 18:30] LABS: HEMATOCRIT 42.9 % (42.0-52.0); HEMOGLOBIN 15.1 g/dl (13.5-17.5); MEAN CORPUSCULAR HEMOGLOBIN 31.1 pg (27.0-33.0); MEAN CORPUSCULAR HGB CONC 35.2 g/dl (32.0-36.5); MEAN CORPUSCULAR VOLUME 88.3 fl (80.0-96.0); PLATELET COUNT, AUTOMATED 301 10^3/uL (150-450); RED BLOOD COUNT 4.86 10^6/uL (4.30-6.10); WHITE BLOOD COUNT 12.4 10^3/uL (4.0-10.0)
[2023-04-16 18:51] LABS: ETHYL ALCOHOL (ETHANOL) 0.007 % (0.000-0.010)
[2023-04-16 18:53] LABS: SALICYLATE LEVEL < 3.0 MG/DL (<30)
[2023-04-16 18:56] LABS: THYROID STIMULATING HORMONE 2.053 uIU/ML (0.55-4.78)
[2023-04-16 19:00] VITALS: BP 124/85; TEMP 97.8; O2SAT 95
[2023-04-16 19:00] LABS: ALBUMIN 4.3 G/DL (3.2-5.2); ALKALINE PHOSPHATASE 57 U/L (46-116); ALT/SGPT 20 U/L (7.0-40); AST/SGOT 9 U/L (<34); BILIRUBIN,DIRECT 0.2 MG/DL (<0.4); BILIRUBIN,TOTAL 0.5 MG/DL (0.3-1.2); BLOOD UREA NITROGEN < 5 MG/DL (9-23); CALCIUM LEVEL 10.1 MG/DL (8.5-10.1); CARBON DIOXIDE LEVEL 29 MMOL/L (20-31); CHLORIDE LEVEL 101 MMOL/L (98-107); CREATININE FOR GFR 0.67 MG/DL (0.70-1.30); GLOMERULAR FILTRATION RATE > 60.0 (>60); GLUCOSE, FASTING 110 MG/DL (60-100); POTASSIUM SERUM 4.2 MMOL/L (3.5-5.1); SODIUM LEVEL 134 MMOL/L (136-145); TOTAL PROTEIN 7.5 G/DL (5.7-8.2)
== END 2023-04-16 19:05 | disposition home or self-care (01) ==
LOC: M ED 16:07
DX: F20.9 Schizophrenia, unspecified (principal); G24.01 Drug induced subacute dyskinesia; J30.1 Allergic rhinitis due to pollen; F17.200 Nicotine dependence, unspecified, uncomplicated; Z79.899 Other long term (current) drug therapy

== ENCOUNTER → 2023-04-20 | Outpatient (REF) | payer OTHER ==
[~2023-04-20] MED LIST changes: +BENZ0.5T2
[2023-04-20 13:36] LABS: BASO # 0.1 10^3/uL (0.0-0.2); BASO % 0.6 % (0.0-1.0); EOS # 0.8 10^3/uL (0.0-0.5); EOS % 9.8 % (0.0-3.0); HEMATOCRIT 44.7 % (42.0-52.0); HEMOGLOBIN 15.4 g/dl (13.5-17.5); LYMPH # 3.1 10^3/uL (1.5-5.0); LYMPH % 40.5 % (24.0-44.0); MEAN CORPUSCULAR HEMOGLOBIN 31.6 pg (27.0-33.0); MEAN CORPUSCULAR HGB CONC 34.5 g/dl (32.0-36.5); MEAN CORPUSCULAR VOLUME 91.8 fl (80.0-96.0); MONO # 0.6 10^3/uL (0.0-0.8); NEUTROPHILS # 3.2 10^3/uL (1.5-8.5); NEUTROPHILS % 40.8 % (36.0-66.0); PLATELET COUNT, AUTOMATED 352 10^3/uL (150-450); RED BLOOD COUNT 4.87 10^6/uL (4.30-6.10); WHITE BLOOD COUNT 7.8 10^3/uL (4.0-10.0)
[2023-04-20 14:10] LABS: VALPROIC ACID (DEPAKOTE) 37.7 UG/ML (50.0-100.0)
[2023-04-20 14:16] LABS: HEMOGLOBIN A1c 5.2 % (4.0-6.0)
[2023-04-20 14:19] LABS: ALBUMIN 4.2 G/DL (3.2-5.2); ALKALINE PHOSPHATASE 53 U/L (46-116); ALT/SGPT 22 U/L (7.0-40); AST/SGOT 26 U/L (<34); BILIRUBIN,DIRECT 0.2 MG/DL (<0.4); BILIRUBIN,TOTAL 0.5 MG/DL (0.3-1.2); BLOOD UREA NITROGEN < 5 MG/DL (9-23); CALCIUM LEVEL 9.9 MG/DL (8.5-10.1); CARBON DIOXIDE LEVEL 32 MMOL/L (20-31); CHLORIDE LEVEL 99 MMOL/L (98-107); CHOLESTEROL LEVEL 187 MG/DL (<200); CHOLESTEROL RISK RATIO 3.74 (<5); GLOMERULAR FILTRATION RATE > 60.0 (>60); GLUCOSE, FASTING 101 MG/DL (60-100); HDL CHOLESTEROL 49.9 MG/DL (>40); LDL CHOLESTEROL 105.5 MG/DL (<100); NON-HDL-C 137.1 MG/DL; POTASSIUM SERUM 4.1 MMOL/L (3.5-5.1); SODIUM LEVEL 133 MMOL/L (136-145); THYROID STIMULATING HORMONE 2.507 uIU/ML (0.55-4.78); TOTAL 25(OH) VITAMIN D 61.6 NG/ML (20.0-100.0); TOTAL PROTEIN 7.1 G/DL (5.7-8.2); TRIGLYCERIDES LEVEL 158 MG/DL (<150)
== END ==
LOC: M LABWUC 12:23
PROVIDERS: ATTEND Nurse Practitioner Psychiatric/Mental Health
DX: F20.9 Schizophrenia, unspecified (principal)

== ENCOUNTER → 2023-06-01 | Outpatient (REF) | payer OTHER ==
[~2023-06-01] MED LIST changes: +RISP-106 PO; -RISP-9 PO
[2023-06-01 13:53] LABS: ALKALINE PHOSPHATASE 49 U/L (46-116); ALT/SGPT 20 U/L (7.0-40); AST/SGOT 11 U/L (<34); BILIRUBIN,TOTAL 0.3 MG/DL (0.3-1.2); BLOOD UREA NITROGEN 5 MG/DL (9-23); CALCIUM LEVEL 10.2 MG/DL (8.5-10.1); CARBON DIOXIDE LEVEL 30 MMOL/L (20-31); CHLORIDE LEVEL 106 MMOL/L (98-107); CHOLESTEROL LEVEL 174 MG/DL (<200); CHOLESTEROL RISK RATIO 4.12 (<5); CREATININE FOR GFR 0.69 MG/DL (0.70-1.30); GLOMERULAR FILTRATION RATE > 60.0 (>60); GLUCOSE, FASTING 136 MG/DL (60-100); HDL CHOLESTEROL 42.2 MG/DL (>40); LDL CHOLESTEROL 111.8 MG/DL (<100); NON-HDL-C 131.8 MG/DL; POTASSIUM SERUM 4.5 MMOL/L (3.5-5.1); SODIUM LEVEL 138 MMOL/L (136-145); TOTAL PROTEIN 7.2 G/DL (5.7-8.2); TRIGLYCERIDES LEVEL 100 MG/DL (<150)
[2023-06-01 13:55] LABS: FREE T4 1.16 NG/DL (0.89-1.76); THYROID STIMULATING HORMONE 1.752 uIU/ML (0.55-4.78)
[2023-06-01 19:14] LABS: HEMOGLOBIN A1c 5.3 % (4.0-6.0)
== END ==
LOC: M LAB REF 12:54
PROVIDERS: ATTEND Family Medicine Addiction Medicine
DX: E11.9 Type 2 diabetes mellitus without complications (principal)

== ENCOUNTER → 2024-04-05 | Outpatient (REF) | payer OTHER ==
[~2024-04-05] MED LIST changes: +FLUO-365 PO; -FLUO20CA22 PO
[2024-04-05 14:25] LABS: ALBUMIN 3.9 G/DL (3.2-5.2); ALKALINE PHOSPHATASE 52 U/L (40-129); ALT/SGPT 50 U/L (7.0-40); AST/SGOT 21 U/L (<34); BILIRUBIN,TOTAL 0.4 MG/DL (0.3-1.2); BLOOD UREA NITROGEN < 5 MG/DL (9-23); CALCIUM LEVEL 9.7 MG/DL (8.5-10.1); CARBON DIOXIDE LEVEL 29 MMOL/L (20-31); CHLORIDE LEVEL 101 MMOL/L (98-107); CREATININE FOR GFR 0.72 MG/DL (0.70-1.30); FREE T4 1.42 NG/DL (0.89-1.76); GLOMERULAR FILTRATION RATE > 60.0 (>60); GLUCOSE, FASTING 108 MG/DL (60-100); POTASSIUM SERUM 4.3 MMOL/L (3.5-5.1); SODIUM LEVEL 137 MMOL/L (136-145); THYROID STIMULATING HORMONE 1.878 uIU/ML (0.55-4.78); TOTAL PROTEIN 7.5 G/DL (5.7-8.2)
[2024-04-05 14:48] LABS: HEMOGLOBIN A1c 5.6 % (4.0-6.0)
== END ==
LOC: M LAB REF 13:11
PROVIDERS: ATTEND Family Medicine Addiction Medicine
DX: E11.9 Type 2 diabetes mellitus without complications (principal)

== ENCOUNTER → 2024-10-10 | Outpatient (REF) | payer OTHER ==
[~2024-10-10] MED LIST changes: +DIVA-41; -DIVA500T94; -PROZ20CA11 PO; +PROZ20CA12 PO
[2024-10-10 15:14] LABS: ALT/SGPT 21 U/L (7.0-40); AST/SGOT 16 U/L (<34); CALCIUM LEVEL 9.9 MG/DL (8.5-10.1); CARBON DIOXIDE LEVEL 29 MMOL/L (20-31); CHLORIDE LEVEL 99 MMOL/L (98-107); CHOLESTEROL LEVEL 186 MG/DL (<200); CHOLESTEROL RISK RATIO 4.35 (<5); CREATININE FOR GFR 0.77 MG/DL (0.70-1.30); GLOMERULAR FILTRATION RATE > 90.0 (>60); LDL CHOLESTEROL 112.9 MG/DL (<100); NON-HDL-C 143.3 MG/DL; POTASSIUM SERUM 4.0 MMOL/L (3.5-5.1); SODIUM LEVEL 135 MMOL/L (136-145); TRIGLYCERIDES LEVEL 152 MG/DL (<150)
[2024-10-10 15:40] LABS: ESTIMATED AVERAGE GLUCOSE 105.0 MG/DL (60-110)
== END ==
LOC: M LAB REF 14:42
PROVIDERS: ATTEND Family Medicine Addiction Medicine
DX: E11.9 Type 2 diabetes mellitus without complications (principal)